=== PATIENT | male | born 1950 | race Caucasian/White ===

== ENCOUNTER 2020-05-08 14:36 | Inpatient (IN) | payer MEDICARE ==
--- NOTE | 2020-05-08 15:33 | ED ---
Weakness HPI <ElmerTommy - Last Filed: 05/08/20 17:31> - General Source: patient Mode of arrival: wheelchair Limitations: no limitations <Brittany Mondragon - Last Filed: 05/08/20 18:01> - General Chief complaint: Weakness Stated complaint: not eating Time Seen by Provider: 05/08/20 15:05 - History of Present Illness Initial comments: 70-year-old male patient presents to the emergency department today for evaluation of generalized weakness and lack of appetite. He was sent in by his primary care physician Dr. Bain for admission. Patient states since the middle of February he has had decreased appetite. Patient states that he does feel nauseated when eating and is having difficulty keeping food down. States when he swallows food he will occasionally have a pain in various locations of his back. Patient denies any fever or chills with this. Denies abdominal pain. Denies constipation or diarrhea. Denies any hematochezia or melena. Patient states he has lost 12 pounds over the last 2 months without trying. Patient denies any recent rash, cough, shortness of breath, chest pain, numbness, tingling, dizziness, weakness, hematuria, dysuria, urinary urgency, urinary frequency, headache, visual changes, or any other complaints. (Brittany Mondragon) - Related Data Allergies Allergy/AdvReac Type Severity Reaction Status Date / Time No Known Allergies Allergy Verified 05/08/20 18:00 Review of Systems ROS Other: All systems not noted in ROS Statement are negative. <Tommy Payne - Last Filed: 05/08/20 17:31> ROS Other: All systems not noted in ROS Statement are negative. <Brittany Mondragon - Last Filed: 05/08/20 18:01> ROS Statement: Those systems with pertinent positive or pertinent negative responses have been documented in the HPI. Past Medical History Past Medical History: Hyperlipidemia, Hypertension History of Any Multi-Drug Resistant Organisms: None Reported Additional Past Surgical History / Comment(s): cataract surgery. Smoking Status: Never smoker Past Alcohol Use History: Daily Past Drug Use History: None Reported <Brittany Mondragon - Last Filed: 05/08/20 18:01> General Exam Limitations: no limitations General appearance: alert, in no apparent distress, other (This is a well- developed, thin appearing adult male patient in no acute distress. Vital signs upon presentation are temperature 98.7F, pulse 108, respirations 16, blood pressure 98/67, pulse ox 97% on room air.) Eye exam: Present: normal appearance, PERRL, EOMI. Absent: scleral icterus, conjunctival injection, periorbital swelling Respiratory exam: Present: normal lung sounds bilaterally. Absent: respiratory distress, wheezes, rales, rhonchi, stridor Cardiovascular Exam: Present: regular rate, normal rhythm, normal heart sounds. Absent: systolic murmur, diastolic murmur, rubs, gallop, clicks GI/Abdominal exam: Present: soft, normal bowel sounds. Absent: distended, tenderness, guarding, rebound, rigid Neurological exam: Present: alert, oriented X3, CN II-XII intact Psychiatric exam: Present: normal affect, normal mood Skin exam: Present: warm, dry, intact, pallor. Absent: rash <Brittany Mondragon - Last Filed: 05/08/20 18:01> Course Vital Signs 05/08/20 05/08/20 14:57 16:55 Temperature 98.7 F Pulse Rate 108 H 81 Respiratory 16 18 Rate Blood Pressure 98/67 102/64 O2 Sat by Pulse 97 99 Oximetry EKG Findings - EKG Comments: EKG Findings:: EKG obtained at 1544 shows normal sinus rhythm with a ventricular rate of 90, OR interval 160, QRS duration 80, QT 360, QTC 440. No evidence of ST elevation or depression. <Brittany Mondragon - Last Filed: 05/08/20 18:01> Medical Decision Making - Lab Data Result diagrams: 05/08/20 15:22 05/08/20 15:22 <Tommy Payne - Last Filed: 05/08/20 17:31> - Lab Data Result diagrams: 05/08/20 15:22 05/08/20 15:22 <Brittany Mondragon - Last Filed: 05/08/20 18:01> - Medical Decision Making Patient reevaluated and reexamined by myself, Dr. Payne. I agree with. Findings. This includes diagnostic interpretation to the plan. Patient does have mild hyponatremia. Case was discussed in detail with Dr. Bani who would like patient admitted with prophylaxis for alcohol withdrawal as well as consult with GI and a computed tomography scan of the abdomen. He states patient has lost 14 pounds in the past couple of months. (Tommy Payne) 70-year-old male patient presented to the emergency department today for evaluation of generalized weakness, decreased appetite, and weight loss. Physical examination did reveal a thin appearing male patient. Abdomen soft and nontender. Labs reviewed and did reveal decreased sodium at 129. Case was discussed with Dr. Bain, he'll be admitted to the hospital with CT abdomen and pelvis as well as consult GI. Patient is agreeable this plan. (Brittany Mondragon) - Lab Data Lab Results 05/08/20 05/08/20 05/08/20 Range/Units 15:22 15:22 15:22 WBC 7.2 (3.8-10.6) k/uL RBC 4.34 (4.30-5.90) m/uL Hgb 13.2 (13.0-17.5) gm/dL Hct 39.2 (39.0-53.0) % MCV 90.3 (80.0-100.0) fL MCH 30.4 (25.0-35.0) pg MCHC 33.6 (31.0-37.0) g/dL RDW 12.2 (11.5-15.5) % Plt Count 145 L (150-450) k/uL Neutrophils % (Manual) 67 % Band Neutrophils % 17 % Lymphocytes % (Manual) 8 % Monocytes % (Manual) 8 % Neutrophils # (Manual) 6.00 (1.3-7.7) k/uL Lymphocytes # (Manual) 0.58 L (1.0-4.8) k/uL Monocytes # (Manual) 0.58 (0-1.0) k/uL Nucleated RBCs 0 (0-0) /100 WBC Manual Slide Review Performed Poikilocytosis (manual Present PT 10.6 (9.0-12.0) sec INR 1.0 (<1.2) APTT 23.5 (22.0-30.0) sec Sodium 129 L (137-145) mmol/L Potassium 4.0 (3.5-5.1) mmol/L Chloride 95 L (98-107) mmol/L Carbon Dioxide 23 (22-30) mmol/L Anion Gap 11 mmol/L BUN 18 (9-20) mg/dL Creatinine 1.09 (0.66-1.25) mg/dL Est GFR (CKD-EPI)AfAm 80 (>60 ml/min/1.73 sqM) Est GFR (CKD-EPI)NonAf 69 (>60 ml/min/1.73 sqM) Glucose 103 H (74-99) mg/dL Calcium 9.3 (8.4-10.2) mg/dL Total Bilirubin 1.8 H (0.2-1.3) mg/dL AST 25 (17-59) U/L ALT 11 (4-49) U/L Alkaline Phosphatase 85 (38-126) U/L Troponin I (0.000-0.034) ng/mL Total Protein 7.0 (6.3-8.2) g/dL Albumin 3.9 (3.5-5.0) g/dL Amylase 59 (30-110) U/L Lipase 203 (23-300) U/L 05/08/20 Range/Units 15:22 WBC (3.8-10.6) k/uL RBC (4.30-5.90) m/uL Hgb (13.0-17.5) gm/dL Hct (39.0-53.0) % MCV (80.0-100.0) fL MCH (25.0-35.0) pg MCHC (31.0-37.0) g/dL RDW (11.5-15.5) % Plt Count (150-450) k/uL Neutrophils % (Manual) % Band Neutrophils % % Lymphocytes % (Manual) % Monocytes % (Manual) % Neutrophils # (Manual) (1.3-7.7) k/uL Lymphocytes # (Manual) (1.0-4.8) k/uL Monocytes # (Manual) (0-1.0) k/uL Nucleated RBCs (0-0) /100 WBC Manual Slide Review Poikilocytosis (manual PT (9.0-12.0) sec INR (<1.2) APTT (22.0-30.0) sec Sodium (137-145) mmol/L Potassium (3.5-5.1) mmol/L Chloride (98-107) mmol/L Carbon Dioxide (22-30) mmol/L Anion Gap mmol/L BUN (9-20) mg/dL Creatinine (0.66-1.25) mg/dL Est GFR (CKD-EPI)AfAm (>60 ml/min/1.73 sqM) Est GFR (CKD-EPI)NonAf (>60 ml/min/1.73 sqM) Glucose (74-99) mg/dL Calcium (8.4-10.2) mg/dL Total Bilirubin (0.2-1.3) mg/dL AST (17-59) U/L ALT (4-49) U/L Alkaline Phosphatase (38-126) U/L Troponin I <0.012 (0.000-0.034) ng/mL Total Protein (6.3-8.2) g/dL Albumin (3.5-5.0) g/dL Amylase (30-110) U/L Lipase (23-300) U/L Disposition <Tommy Payne - Last Filed: 05/08/20 17:31> Decision to Admit Reason: Admit from EC Decision Date: 05/08/20 Decision Time: 17:42 <Brittany Mondragon - Last Filed: 05/08/20 18:01> Clinical Impression: Anorexia, Failure to thrive Disposition: ADMITTED IP TO THIS [facility] Condition: Serious
[2020-05-08 16:00] LABS: HCT 39.2 % (39.0-53.0); HGB 13.2 gm/dL (13.0-17.5); MCH 30.4 pg (25.0-35.0); MCHC 33.6 g/dL (31.0-37.0); MCV 90.3 fL (80.0-100.0); Mean Platelet Volume 9.2; Platelet Count 145 k/uL (150-450); RBC 4.34 m/uL (4.30-5.90); RDW 12.2 % (11.5-15.5); WBC 7.2 k/uL (3.8-10.6)
[2020-05-08 16:06] LABS: Partial Thromboplastin Time 23.5 sec (22.0-30.0); Prothrombin Time 10.6 sec (9.0-12.0)
--- NOTE | 2020-05-08 16:07 | XR ---
EXAMINATION TYPE: XR chest 2V DATE OF EXAM: 05/08/2020 COMPARISON: NONE HISTORY: Shortness of breath TECHNIQUE: Frontal and lateral views of the chest are obtained. FINDINGS: Scattered senescent parenchymal changes noted. Hyperinflation compatible with COPD. No evidence for infiltrate. No evidence for atelectasis. Heart size is stable. Mediastinal structures are stable and grossly unremarkable. No evidence for hilar prominence. Degenerative changes dorsal spine. IMPRESSION: 1. No evidence for acute pulmonary disease.
[2020-05-08] MEDS ORDERED: SODIUM CHLORIDE 0.9% 500 ML 500 ML IV ONE (16:16)
[2020-05-08] MEDS ORDERED: SODIUM CHLORIDE 0.9% 1,000 ML IV ONE (16:16)
[2020-05-08 16:18] LABS: Albumin 3.9 g/dL (3.5-5.0); Calcium 9.3 mg/dL (8.4-10.2); Total Bilirubin 1.8 mg/dL (0.2-1.3)
[2020-05-08 16:43] LABS: Band Neutrophils % 17 %; Lymphocytes # (M) 0.58 k/uL (1.0-4.8); Monocytes # (M) 0.58 k/uL (0-1.0); Neutrophils % (M) 67 %; Nucleated Red Blood Cells 0 /100 WBC (0-0); Poikilocytosis (M) Present; Total Cells Counted 100
[2020-05-08] MEDS ORDERED: NALOXONE 0.4 MG/ML 1 ML VIAL IV PRN (17:39)
[2020-05-08] MEDS ORDERED: ONDANSETRON 4 MG/2 ML VIAL IVP PRN (17:39)
[2020-05-08] MEDS ORDERED: THIAMINE 100 MG/ML 2 ML VIAL IM STA (17:41)
[2020-05-08] MEDS ORDERED: LORazepam 2 MG/ML INJ IV PRN ×3 (17:41)
[2020-05-08] MEDS: SODIUM CHLORIDE 0.9% 1,000 ML IV SCH (18:08)
--- NOTE | 2020-05-08 19:11 | CT ---
EXAMINATION TYPE: CT abdomen pelvis w con DATE OF EXAM: 05/08/2020 COMPARISON: HISTORY: Low back pain with weight loss and vomiting CT DLP: 581.3 mGycm Automated exposure control for dose reduction was used. CONTRAST: Performed with IV Contrast, patient injected with 100 mL of Isovue 300. Lung bases are clear. There is no pleural effusion. Heart size is normal. There is no pericardial eff usion. Gallbladder is distended. The bile ducts are not dilated. Spleen is intact. There is a 3.5 cm low-den sity area at the inferior aspect of the pancreatic head adjacent to the descending duodenum. It is no t clear if this is related to a large duodenal diverticulum or to a mass in the pancreatic head. The body and tail of the pancreas appear normal. Stomach has normal size. There is no adrenal mass. Kidneys show satisfactory contrast opacification. There is no hydronephrosi s. There is 2 cm cortical cyst posterior left kidney. The delayed images show normal renal excretion. Ureters are not dilated. There is no retroperitoneal adenopathy. Bladder distends smoothly. There is no inguinal hernia. There is retained fecal material in the rectum that measures 6.5 cm. There is no free fluid in the pelvis. There is no mesenteric edema. There is no ascites or free air. Appendix appears normal. There is no bowel obstruction. Lumbar vertebra have normal alignment. 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 IMPRESSION: Mass at the junction of the pancreatic head with the descending duodenum. Pancreatic tumor is possibl e. This could be also unusual duodenal diverticulum. Limited CT scan with oral contrast or MR scan wo uld BE helpful for further evaluation if clinically indicated.
[2020-05-08 22:29] LABS: Appearance,Urine Clear (Clear); Bilirubin,Urine Negative (Negative); Blood,Urine Negative (Negative); Color,Urine Yellow; Glucose,Urine (UA) Negative (Negative); Ketones,Urine 1+ (Negative); Leukocyte Esterase,Urine Negative (Negative); Nitrite,Urine Negative (Negative); PH, Urine 6.5 (5.0-8.0); Protein,Urine Negative (Negative); Specific Gravity,Urine 1.044 (1.001-1.035); Urobilinogen,Urine <2.0 mg/dL (<2.0)
[2020-05-09 08:35] VITALS: RESP 16
[2020-05-09] MEDS: THIAMINE 100 MG TAB PO SCH ×2 (08:40→16:28)
[2020-05-09] MEDS: SODIUM CHLORIDE 0.9% 1,000 ML IV SCH ×2 (08:40→20:44)
[2020-05-09] MEDS: PANTOPRAZOLE 40 MG/10 ML VIAL IVP SCH (08:45)
[2020-05-09] MEDS ORDERED: COLCHICINE 0.6 MG EACH PO PRN (09:00)
[2020-05-09 09:19] LABS: Basophils % (A) 1 %; Eosinophils % (A) 0 %; HCT 32.9 % (39.0-53.0); HGB 10.7 gm/dL (13.0-17.5); Lymphocytes # (A) 0.5 k/uL (1.0-4.8); Lymphocytes % (A) 11 %; MCH 29.8 pg (25.0-35.0); MCHC 32.5 g/dL (31.0-37.0); MCV 91.6 fL (80.0-100.0); Monocytes # (A) 0.8 k/uL (0-1.0); Monocytes % (A) 16 %; Neutrophils # (A) 3.1 k/uL (1.3-7.7); Neutrophils % (A) 66 %; Platelet Count 118 k/uL (150-450); RBC 3.59 m/uL (4.30-5.90); RDW 12.3 % (11.5-15.5); WBC 4.6 k/uL (3.8-10.6)
--- NOTE | 2020-05-09 09:20 | P.GSCN ---
History of Present Illness Consult date: 05/09/20 History of present illness: 70-year-old male presented to the emergency department secondary to symptoms of failure to thrive. He states that for the past few months his appetite is decreased and increased level of abdominal pain after meals. He also complains of nausea and vomiting episodes after meals. He states that he usually does not vomit food bolus, however it is a clear liquid. He states that after certain meals he begins to have a sharp stabbing pain in the middle of the stomach goes to his back. He denies any significant changes in bowel function. He states he has occasionally had these types of symptoms, however it has become more frequent. He states secondary to these issues, he has lost over 10 pounds in the last month or so. Workup was performed in the emergency department with standard blood work and CT of the abdomen and pelvis. CT was concerning for a possibility of a pancreatic mass and a distended gallbladder. Blood work did re veal a mildly elevated total bilirubin at 1.8. Otherwise, no significant liver function abnormalities. Currently, he denies any abdominal pain. He is on a clear liquid diet and states he is tolerating that without any significant pain. He denies any fevers, chills, chest pain or shortness of breath. Review of Systems All systems: negative Past Medical History Past Medical History: Hyperlipidemia, Hypertension History of Any Multi-Drug Resistant Organisms: None Reported Past Surgical History: No Surgical Hx Reported Additional Past Surgical History / Comment(s): cataract surgery. Past Anesthesia/Blood Transfusion Reactions: No Reported Reaction Past Psychological History: No Psychological Hx Reported Smoking Status: Never smoker Past Alcohol Use History: Daily Past Drug Use History: None Reported - Past Family History Mother Family Medical History: Cancer Medications and Allergies Home Medications Medication Instructions Recorded Confirmed Type Atorvastatin [Lipitor] 40 mg PO HS 05/08/20 05/08/20 History Colchicine 0.6 mg PO DAILY PRN 05/08/20 05/08/20 History Ergocalciferol (Vitamin D2) 50,000 unit PO QMONTHLY 05/08/20 05/08/20 History [Drisdol] Folic Acid 1 mg PO HS 05/08/20 05/08/20 History lisinopriL 20 mg PO HS 05/08/20 05/08/20 History Allergies Allergy/AdvReac Type Severity Reaction Status Date / Time No Known Allergies Allergy Verified 05/08/20 18:00 Surgical - Exam Osteopathic Statement: *. No significant issues noted on an osteopathic structural exam other than those noted in the History and Physical/Consult. Vital Signs Temp Pulse Resp BP Pulse Ox 98.7 F 108 H 16 98/67 97 05/08/20 14:57 05/08/20 14:57 05/08/20 14:57 05/08/20 14:57 05/08/20 14:57 - General no distress - Eyes PERRL, normal ocular movement - ENT normal mucosa, no hearing loss - Neck no masses, trachea midline - Respiratory normal respiratory effort - Abdomen Soft, nontender, nondistended, no rebound, no guarding - Neurologic normal coordination, normal sensation - Psychiatric oriented to time, oriented to person, oriented to place Results - Labs 05/08/20 15:22 05/08/20 15:22 Abnormal Lab Results - Last 24 Hours (Table) 05/08/20 05/08/20 05/08/20 Range/Units 15:22 15:22 15:22 Plt Count 145 L (150-450) k/uL Lymphocytes # (Manual) 0.58 L (1.0-4.8) k/uL Sodium 129 L (137-145) mmol/L Chloride 95 L (98-107) mmol/L Glucose 103 H (74-99) mg/dL Osmolality (280-301) mosm/kg Total Bilirubin 1.8 H (0.2-1.3) mg/dL Ur Specific [place] 1.044 H (1.001-1.035) Urine Ketones 1+ H (Negative) 05/08/20 Range/Units 15:22 Plt Count (150-450) k/uL Lymphocytes # (Manual) (1.0-4.8) k/uL Sodium (137-145) mmol/L Chloride (98-107) mmol/L Glucose (74-99) mg/dL Osmolality 274 L (280-301) mosm/kg Total Bilirubin (0.2-1.3) mg/dL Ur Specific [place] (1.001-1.035) Urine Ketones (Negative) Diabetes panel 05/08/20 Range/Units 15:22 Sodium 129 L (137-145) mmol/L Potassium 4.0 (3.5-5.1) mmol/L Chloride 95 L (98-107) mmol/L Carbon Dioxide 23 (22-30) mmol/L BUN 18 (9-20) mg/dL Creatinine 1.09 (0.66-1.25) mg/dL Glucose 103 H (74-99) mg/dL Calcium 9.3 (8.4-10.2) mg/dL AST 25 (17-59) U/L ALT 11 (4-49) U/L Alkaline Phosphatase 85 (38-126) U/L Total Protein 7.0 (6.3-8.2) g/dL Albumin 3.9 (3.5-5.0) g/dL Calcium panel 05/08/20 Range/Units 15:22 Calcium 9.3 (8.4-10.2) mg/dL Albumin 3.9 (3.5-5.0) g/dL Pituitary panel 05/08/20 Range/Units 15:22 Sodium 129 L (137-145) mmol/L Potassium 4.0 (3.5-5.1) mmol/L Chloride 95 L (98-107) mmol/L Carbon Dioxide 23 (22-30) mmol/L BUN 18 (9-20) mg/dL Creatinine 1.09 (0.66-1.25) mg/dL Glucose 103 H (74-99) mg/dL Calcium 9.3 (8.4-10.2) mg/dL Adrenal panel 05/08/20 Range/Units 15:22 Sodium 129 L (137-145) mmol/L Potassium 4.0 (3.5-5.1) mmol/L Chloride 95 L (98-107) mmol/L Carbon Dioxide 23 (22-30) mmol/L BUN 18 (9-20) mg/dL Creatinine 1.09 (0.66-1.25) mg/dL Glucose 103 H (74-99) mg/dL Calcium 9.3 (8.4-10.2) mg/dL Total Bilirubin 1.8 H (0.2-1.3) mg/dL AST 25 (17-59) U/L ALT 11 (4-49) U/L Alkaline Phosphatase 85 (38-126) U/L Total Protein 7.0 (6.3-8.2) g/dL Albumin 3.9 (3.5-5.0) g/dL Assessment and Plan (1) Failure to thrive Narrative/Plan: Based on the patient's computed tomography scan findings, there is concern of a pancreatic head mass. His symptoms could reflect a pancreatic etiology and pancreatic mass should be ruled out. I would recommend further imaging workup to rule out pancreatic mass. The patient is also noted to have a distended gallbladder. he does not currently have baseline pain, and the distended gallbladder could be related to lack of oral intake. Prior to further biliary workup, we will evaluate for pancreatic etiology due to concerning CT findings. GI consult is currently pending. Current Visit: Yes Status: Acute Code(s): [id number] - SNOMED Code(s): 39625759
[2020-05-09 09:32] LABS: African American GFR (CKD) >90 (>60 ml/min/1.73 sqM); Anion Gap 10 mmol/L; Blood Urea Nitrogen 15 mg/dL (9-20); Calcium 8.3 mg/dL (8.4-10.2); Carbon Dioxide 24 mmol/L (22-30); Chloride 99 mmol/L (98-107); Glucose 92 mg/dL (74-99); Non-African American GFR(CKD) 89 (>60 ml/min/1.73 sqM); Potassium 3.3 mmol/L (3.5-5.1); Sodium 133 mmol/L (137-145)
[2020-05-09 10:06] LABS: Poikilocytosis (M) Present
[2020-05-09] MEDS ORDERED: Potassium Replacement Protocol 1 EACH MISC MISCELLANE PRN ×3 (10:55→15:28)
[2020-05-09] MEDS ORDERED: Magnesium Replacement Protocol 1 EACH MISC MISCELLANE PRN ×2 (10:57→15:28)
[2020-05-09 11:05] LABS: ALT 8 U/L (4-49); AST 19 U/L (17-59); Alkaline Phosphatase 65 U/L (38-126); Bilirubin, Delta 0.4 mg/dL (0.0-0.2); Bilirubin,Unconjugated 0.9 mg/dL (0.0-1.1); Total Bilirubin 1.3 mg/dL (0.2-1.3); Total Protein 5.7 g/dL (6.3-8.2)
[2020-05-09] MEDS: POTASSIUM CHLORIDE ER 20 MEQ TAB.ER PO SCH ×4 (12:25→17:54)
[2020-05-09 12:32] VITALS: BMI 17.1
--- NOTE | 2020-05-09 14:10 | P.HPIM ---
History of Present Illness H&P Date: 05/09/20 Chief Complaint: Nausea, vomiting, back pain, weight loss This is 70-year-old gentleman with past medical history of hyperlipidemia, hypertension, daily alcohol consumption of 5-6 beers, presented to his PCPs office yesterday with nausea, vomiting, decreased appetite, reported unintentional weight loss of 12-15 pounds since January 2020, back pain and was sent directly into the ER. Denies diarrhea. Reports abdominal pain sometimes after eating, midepigastric radiating to back. He denies change in bowel habits Denies hemoptysis, hematochezia, melena. Denies any chest pain, palpitations or shortness of breath. Denies any fever or chills. Denies cough. Denies any focal deficits. Chest x-ray reported no evidence for acute pulmonary disease. Abdomen/pelvis CT reported distended gallbladder, 3.5 cm low-density area in the inferior aspect of the pancreatic head, retained fecal material in the rectum measuring 6.5cm. EKG) normal sinus rhythm. Troponin negative 1. Sodium 129 on admission up to 133 with IV fluid hydration. Osmolality low 274, T bili 1.8, LFTs , amylase, lipase within normal limits, Potassium 3.3, magnesium ordered. Hemoglobin 13.2, currently 10.7. Platelets 145 on admission down to 118 Review of Systems ROS Statement: Those systems with pertinent positive or pertinent negative responses have been documented in the HPI. ROS Other: All systems not noted in ROS Statement are negative. Past Medical History Past Medical History: Hyperlipidemia, Hypertension History of Any Multi-Drug Resistant Organisms: None Reported Additional Past Surgical History / Comment(s): cataract surgery. Past Anesthesia/Blood Transfusion Reactions: No Reported Reaction Past Psychological History: No Psychological Hx Reported Smoking Status: Never smoker Past Alcohol Use History: Daily Past Drug Use History: None Reported - Past Family History Mother Family Medical History: Cancer Medications and Allergies Home Medications Medication Instructions Recorded Confirmed Type Atorvastatin [Lipitor] 40 mg PO HS 05/08/20 05/08/20 History Colchicine 0.6 mg PO DAILY PRN 05/08/20 05/08/20 History Ergocalciferol (Vitamin D2) 50,000 unit PO QMONTHLY 05/08/20 05/08/20 History [Drisdol] Folic Acid 1 mg PO HS 05/08/20 05/08/20 History lisinopriL 20 mg PO HS 05/08/20 05/08/20 History Allergies Allergy/AdvReac Type Severity Reaction Status Date / Time No Known Allergies Allergy Verified 05/08/20 18:00 Physical Exam Vitals: Vital Signs Temp Pulse Pulse Pulse Resp BP BP 05/09/20 08:32 98 F 75 16 121/63 05/08/20 23:57 98 F 71 17 128/70 05/08/20 23:00 75 20 131/70 05/08/20 22:30 76 18 120/78 05/08/20 22:00 74 18 131/74 05/08/20 21:30 73 20 123/78 05/08/20 21:00 80 20 125/78 05/08/20 20:30 72 20 128/72 05/08/20 20:00 75 20 118/72 05/08/20 19:30 79 20 130/71 05/08/20 19:00 82 20 131/76 05/08/20 18:30 87 12 121/78 05/08/20 18:00 81 17 113/76 05/08/20 17:30 80 15 117/73 05/08/20 16:55 81 18 102/64 05/08/20 16:30 85 18 95/74 05/08/20 14:57 98.7 F 108 H 16 98/67 Pulse Ox 05/09/20 08:32 98 05/08/20 23:57 97 05/08/20 23:00 100 05/08/20 22:30 100 05/08/20 22:00 99 05/08/20 21:30 99 05/08/20 21:00 99 05/08/20 20:30 100 05/08/20 20:00 100 05/08/20 19:30 100 05/08/20 19:00 100 05/08/20 18:30 98 05/08/20 18:00 100 05/08/20 17:30 100 05/08/20 16:55 99 05/08/20 16:30 100 05/08/20 14:57 97 Intake and Output 05/08/20 05/09/20 05/09/20 22:59 06:59 14:59 Other: # Voids 1 Weight 57.153 kg PHYSICAL EXAM: VITAL SIGNS: As above GENERAL: Sitting up in bed, no acute distress HEENT: Conjunctivae normal. eyes normal. NECK: No JVD. No thyroid enlargement. No LNs CARDIOVASCULAR: S1, S2 regular. No murmur RESPIRATION: Breath sounds diminished in the bases. No rhonchi or crackles. No bronchial breathing. ABDOMEN: Soft, nontender . No guarding. no masses palpable. No ascites, No hepatosplenomegaly.Bowel sounds heard. LEGS: No edema. no swelling PSYCHIATRY: Alert and oriented X3, mood and affect normal. NERVOUS SYSTEM: Cranial N 2-12 grossly normal. Moves all 4 limbs. Diffuse weakness, No focal deficits. Strength and sensation grossly intact.. Skin: Warm and dry, no rash Lymphatic system. No LN neck axilla. Results CBC & Chem 7: 05/09/20 08:40 05/09/20 08:40 Labs: Abnormal Lab Results - Last 24 Hours (Table) 05/08/20 05/08/20 05/08/20 Range/Units 15:22 15:22 15:22 Plt Count 145 L (150-450) k/uL Lymphocytes # (Manual) 0.58 L (1.0-4.8) k/uL Sodium 129 L (137-145) mmol/L Chloride 95 L (98-107) mmol/L Glucose 103 H (74-99) mg/dL Osmolality (280-301) mosm/kg Total Bilirubin 1.8 H (0.2-1.3) mg/dL Ur Specific [place] 1.044 H (1.001-1.035) Urine Ketones 1+ H (Negative) 05/08/20 Range/Units 15:22 Plt Count (150-450) k/uL Lymphocytes # (Manual) (1.0-4.8) k/uL Sodium (137-145) mmol/L Chloride (98-107) mmol/L Glucose (74-99) mg/dL Osmolality 274 L (280-301) mosm/kg Total Bilirubin (0.2-1.3) mg/dL Ur Specific [place] (1.001-1.035) Urine Ketones (Negative) Thrombosis Risk Factor Assmnt - Choose All That Apply Any of the Below Risk Factors Present?: No Other Risk Factors: Yes Each Risk Factor Represents 2 Points: Age 61-74 years Other congenital or acquired thrombophilia - If yes, enter type in comment: No Thrombosis Risk Factor Assessment Total Risk Factor Score: 2 Thrombosis Risk Factor Assessment Level: Low Risk Assessment and Plan Assessment: Failure to thrive with Acute nausea vomiting accompanied by back pain, un intentional weight loss of 12-15 pounds in the last 2-3 months Dehydration Hyponatremia secondary to the above Daily alcohol abuse of 5-6 beers per day Thrombocytopenia Lymphocytopenia Enlarge gallbladder Pancreatic mass reported per CT, abdominal MRI pending Hyperlipidemia Hypertension Anorexia, Moderate protein malnutrition, BMI 17.1 Plan: Continue on current medication regime ,monitoring and symptomatic treatment. Maintain IV fluid hydration. CIWA PROTOCOL. Electrolyte replacement protocols ordered. GI consult in place with recommendations pending. General surgery, Dr. Cisneros consulted. Abdominal MRI ordered. Prognosis guarded and multiple complex medical issues. The impression and plan of care has been dictated as directed. : I performed a history and examination of this patient, discussed the same with the dictator. I agree with the dictator's note ,documented as a scribe. Any additional findings or plans will be noted.
--- NOTE | 2020-05-09 14:45 | MR ---
MR abdomen with and without contrast HISTORY: Weight loss and vomiting, abnormal CT Multiplanar multisequence and postcontrast images obtained through the abdomen following 6 cc Gadavis t IV. Correlation CT abdomen pelvis 05/08/2020 3 mass seen at the level of the pancreatic groove on prior CT shows mixed isointense, focal areas of T2 intense signal and measures approximately 3.2 cm in AP dimension by 5.1 cm in cephalad to caudal d imension by 4.4 cm in transverse dimension. There is some peripheral enhancement. Cystic spaces inter mila are present, there is an intrinsic architecture which enhances and washes out, T1 precontrast s hows isointense signal. There is local mass effect on the duodenum as well as the pancreatic head. No evident biliary ductal dilatation. Periportal node is suspected in the head of the pancreas with enl argement, axial image 23 T2 data set. No evident involvement of the portal vein. There is no retroperitoneal adenopathy or ascites. Aorta shows normal caliber. Liver and gallbladder, spleen, adrenal glands and kidneys are stable, cortical cysts associated with the left kidney. Lung bases are clear. No pleural or pericardial effusion. IMPRESSION: Favor duodenal adenocarcinoma, pancreatic groove carcinoma, recommend endoscopy with biop sy for better evaluation.
[2020-05-09 15:20] LABS: Magnesium 1.5 mg/dL (1.6-2.3); Potassium 3.5 mmol/L (3.5-5.1)
[2020-05-09] MEDS: MAGNESIUM SULFATE-D5W PMX 1 GM in DEXTROSE/WATER 1 100ML.BAG IVPB SCH ×2 (16:28→17:54)
--- NOTE | 2020-05-09 17:36 | ECHOF ---
Referral Reason:LV fx MEASUREMENTS -------- HEIGHT: 177.8 cm WEIGHT: 57.2 kg BP: 121/63 IVSd: 1.6 cm (0.6 - 1.1) LVIDd: 2.4 cm (3.9 - 5.3) LVPWd: 1.3 cm (0.6 - 1.1) EDV(Teich): 19 ml IVSs: 1.8 cm LVIDs: 1.6 cm LVPWs: 1.8 cm %IVS Thck: 14 % ESV(Teich): 7 ml EF(Teich): 62 % %FS: 31 % SV(Teich): 12 ml RVIDd: 2.9 cm (< 3.3) IVC: 17.21 mm LALs A4C: 3.5 cm LAAs A4C: 10.4 cm LAESV A-L A4C: 26 ml LAESV MOD A4C: 20 ml LALs A2C: 4.0 cm LAAs A2C: 9.5 cm LAESV A-L A2C: 20 ml LAESV MOD A2C: 19 ml LAESV(A-L): 24 ml LAESV Index (A-L): 14.08 ml/m Ao Diam: 3.0 cm (2.0 - 3.7) AV Cusp: 1.8 cm (1.5 - 2.6) EPSS: 0.2 cm MV E Juliano: 0.89 m/s MV DecT: 238 ms MV Dec Forrest: 3.7 m/s MV A Juliano: 0.68 m/s MV E/A Ratio: 1.30 MV PHT: 69 ms LVOT Vmax: 1.11 m/s LVOT maxP.97 mmHg AV Vmax: 1.40 m/s AV maxP.81 mmHg TR Vmax: 2.60 m/s TR maxP.03 mmHg RAP: 5.00 mmHg RVSP: 32.03 mmHg MV EF SLOPE: 43.23 mm/s (70 - 150) MV EXCURSION: 13.62 mm (> 18.000) FINDINGS -------- This was a technically adequate study. The left ventricular size is normal. There is moderate concentric left ventricular hypertrophy. O verall left ventricular systolic function is normal with, an EF between 55 - 60 %. The diastolic fi lling pattern is normal for the age of the patient {E/E'}. The right ventricle is normal in size. Normal LA size by volume 22+/-6 ml/m2. The right atrial size is normal. Interatrial and interventricular septum intact. There is mild aortic valve sclerosis. There is no evidence of aortic regurgitation. There is no e vidence of aortic stenosis. No mitral regurgitation. Mild tricuspid regurgitation present. There is no evidence of pulmonary hypertension. The right v entricular systolic pressure, as measured by Doppler, is 32.03mmHg. There is no pulmonic regurgitation present. The aortic root size is normal. Normal inferior vena cava with normal inspiratory collapse consistent with estimated right atrial pre ssure of 5 mmHg. There is no pericardial effusion. CONCLUSIONS -------- 1. The left ventricular size is normal. 2. There is moderate concentric left ventricular hypertrophy. 3. Overall left ventricular systolic function is normal with, an EF between 55 - 60 %. 4. The diastolic filling pattern is normal for the age of the patient {E/E'} 5. There is mild aortic valve sclerosis. 6. Mild tricuspid regurgitation present. PLANT OPERATIONS MANAGER: Socorro Bishop RDCS
[2020-05-09 19:49] LABS: Magnesium 2.4 mg/dL (1.6-2.3)
[2020-05-09] MEDS ORDERED: lisinopriL 20 MG TAB PO SCH (21:00)
[2020-05-09] MEDS ORDERED: FOLIC ACID 1 MG TAB PO SCH (21:00)
[2020-05-09] MEDS ORDERED: ATORVASTATIN 40 MG TAB PO SCH (21:00)
--- NOTE | 2020-05-09 22:41 | CONS ---
CONSULTATION DATE OF DICTATION: 05/09/2020 REASON FOR CONSULTATION: Epigastric pain, progressive weakness and weight loss. HISTORY OF PRESENT ILLNESS: The patient is a 70-year-old pleasant white male admitted to the hospital because of intermittent episodes of epigastric pain radiating to the back associated with progressive weakness and fatigue as well as weight loss of 15 pounds in the last 2 months' duration. He has been having intermittent episodes of epigastric pain, especially with eating, worse with solids, and occasionally with liquids. He denies any heartburn, reports no nausea, vomiting. He lost about 15 pounds. He came into the emergency room and had a CT of the abdomen and pelvis done yesterday that showed a 3.5 cm low-density area in the inferior aspect of the pancreatic head adjacent to the descending duodenum; unclear if this represents a duodenal diverticulum versus a mass. The patient was seen by Dr. Cisneros and an MRI of the pancreas was ordered, which was just done; results are still pending at the time of this dictation. PAST MEDICAL HISTORY: His past medical history is significant for hypertension and hyperlipidemia. MEDICATIONS: Medications at home include Drisdol, colchicine, lisinopril, folic acid, Lipitor. ALLERGIES: NONE. SOCIAL HISTORY: No smoking. No alcohol use. FAMILY HISTORY: Unremarkable. PAST SURGICAL HISTORY: Cataract surgery. REVIEW OF SYSTEMS: CARDIOPULMONARY: No chest pain or shortness of breath. GENITOURINARY: No dysuria or hematuria. MUSCULOSKELETAL: Unremarkable. SKIN: Unremarkable. ENDOCRINE: Unremarkable. PSYCHIATRIC: Unremarkable. NEUROLOGY: Unremarkable. ENT/VISION: Unremarkable. CONSTITUTIONAL: No recent weight loss. No fever, chills, night sweats. PHYSICAL EXAMINATION: He appears comfortable. VITAL SIGNS: Stable. Blood pressure 125/66, pulse rate 75, temperature 98.1. HEENT examination unremarkable. Conjunctivae pink. Sclerae anicteric. Oral cavity no lesions. NECK: No JVD or lymph node enlargement. CHEST: Clear to auscultation. HEART: Regular rate and rhythm. ABDOMEN: Soft. There was very minimal tenderness in the epigastric area. Rest of the abdomen was benign. EXTREMITIES: No pedal edema. SKIN: No rashes. NEUROLOGIC: Alert and oriented x3. No focal deficits. LABS: WBC 7.2, hemoglobin 13.2, platelets 145. Basic metabolic panel is within normal limits. ALT and AST are 25 and 11, respectively. T-bilirubin 1.8 and alkaline phosphatase is 88. Amylase and lipase are normal. IMPRESSION: This is a patient who presented to the hospital with intermittent epigastric pain radiating to the back associated with weight loss of 20 pounds in the last 2-[address] scan showed a 3.5 cm suspicious lesion in the pancreatic head adjacent to the descending duodenum, but could not be adequately characterized. At this time possibility of pancreatic neoplasm cannot be excluded, based on his symptoms. RECOMMENDATIONS: 1. Agree with MRI of the pancreas. 2. In the meantime, continue with Protonix 40 mg daily. 3. Advance diet as tolerated. 4. Based on the MRI of the pancreas, we will decide further investigations, if he needs to be transferred to a tertiary institute versus an upper endoscopy at this hospital. The plan was discussed with the patient. He is agreeable to it. Thank you for this consultation. MMODL / IJN: [id number] /
[2020-05-10] MEDS: PANTOPRAZOLE 40 MG/10 ML VIAL IVP SCH (07:45)
[2020-05-10] MEDS: THIAMINE 100 MG TAB PO SCH ×2 (07:45→17:58)
--- NOTE | 2020-05-10 08:33 | P.PN ---
Subjective Progress Note Date: 05/10/20 Patient seen and examined. No acute events. Objective - Vital Signs Vital signs: Vital Signs Temp 97.8 F 05/10/20 07:44 Pulse 74 05/10/20 07:51 Resp 16 05/10/20 07:51 BP 132/78 05/10/20 07:44 Pulse Ox 99 05/10/20 07:44 Intake & Output 05/09/20 05/10/20 05/10/20 18:59 06:59 18:59 Weight 54.2 kg Other: Voiding Method Toilet Toilet # Voids 1 2 # Bowel Movements 1 - Constitutional General appearance: Present: cooperative - Respiratory Details: No difficulty with respiration - Gastrointestinal Gastrointestinal Comment(s): Soft, nontender, nondistended, no rebound, no guarding - Musculoskeletal Musculoskeletal: Present: generalized weakness - Psychiatric Psychiatric: Present: A&O x's 3 - Labs CBC & Chem 7: 05/09/20 08:40 05/09/20 19:17 Labs: Abnormal Lab Results - Last 24 Hours (Table) 05/09/20 05/09/20 05/09/20 Range/Units 08:40 08:40 14:54 RBC 3.59 L (4.30-5.90) m/uL Hgb 10.7 L (13.0-17.5) gm/dL Hct 32.9 L (39.0-53.0) % Plt Count 118 L (150-450) k/uL Lymphocytes # 0.5 L (1.0-4.8) k/uL Sodium 133 L (137-145) mmol/L Potassium 3.3 L (3.5-5.1) mmol/L Calcium 8.3 L (8.4-10.2) mg/dL Magnesium 1.5 L (1.6-2.3) mg/dL Delta Bilirubin 0.4 H (0.0-0.2) mg/dL Total Protein 5.7 L (6.3-8.2) g/dL Albumin 3.0 L (3.5-5.0) g/dL 05/09/20 Range/Units 19:17 RBC (4.30-5.90) m/uL Hgb (13.0-17.5) gm/dL Hct (39.0-53.0) % Plt Count (150-450) k/uL Lymphocytes # (1.0-4.8) k/uL Sodium (137-145) mmol/L Potassium (3.5-5.1) mmol/L Calcium (8.4-10.2) mg/dL Magnesium 2.4 H (1.6-2.3) mg/dL Delta Bilirubin (0.0-0.2) mg/dL Total Protein (6.3-8.2) g/dL Albumin (3.5-5.0) g/dL Assessment and Plan (1) Failure to thrive Narrative/Plan: MRI of the abdomen was completed. 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 GI has evaluated the patient. We will await their recommendations on possible endoscopy secondary to MRI results. If endoscopic confirmation of a duodenal adenocarcinoma at the curvature of the pancreas, would recommend surgical oncology evaluation and workup at tertiary care center based on location of the cancer. Current Visit: Yes Status: Acute Code(s): [id number] - SNOMED Code(s): 61912442
--- NOTE | 2020-05-10 09:06 | P.DS ---
Providers Date of admission: 05/09/20 08:55 Expected date of discharge: 05/10/20 Attending physician: Melvin Bain Consults: 05/08/20 17:40 Consult Physician Routine Consulting Provider: Shukri Bucio Consult Reason/Comments: Anorexia; Failure to thrive Do you want consulting provider notified?: Yes 05/09/20 08:14 Consult Physician Routine Consulting Provider: Tamika Cisneros Consult Reason/Comments: Distended GB Do you want consulting provider notified?: Yes Primary care physician: Melvin Bain Hospital Course: Final Diagnoses: Failure to thrive with Acute nausea vomiting accompanied by back pain, unintentional weight loss of 12-15 pounds in the last 2-3 months.MRI of the abdomen completed 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 Dehydration Hyponatremia secondary to the above Daily alcohol abuse of 5-6 beers per day Thrombocytopenia Lymphocytopenia Enlarge gallbladder Pancreatic mass reported per CT, abdominal MRI pending Hyperlipidemia Hypertension Anorexia, Moderate protein malnutrition, BMI 17.1 Hospital course:This is 70-year-old gentleman with past medical history of hyperlipidemia, hypertension, daily alcohol consumption of 5-6 beers, presented to his PCPs office yesterday with nausea, vomiting, decreased appetite, reported unintentional weight loss of 12-15 pounds since January 2020, back pain and was sent directly into the ER. Denies diarrhea. Reports abdominal pain sometimes after eating, midepigastric radiating to back. He denies change in bowel habits Denies hemoptysis, hematochezia, melena. Denies any chest pain, palpitations or shortness of breath. Denies any fever or chills. Denies cough. Denies any focal deficits. Chest x-ray reported no evidence for acute pulmonary disease. Abdomen/pelvis CT reported distended gallbladder, 3.5 cm low-density area in the inferior aspect of the pancreatic head, retained fecal material in the rectum measuring 6.5cm. EKG) normal sinus rhythm. Troponin negative 1. Sodium 129 on admission up to 133 with IV fluid hydration. Osmolality low 274, T bili 1.8, LFTs , amylase, lipase within normal limits, Potassium 3.3, magnesium ordered. Hemoglobin 13.2, currently 10.7. 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 Findings discussed with surgery and GI. Both recommending transfer to tertiary care center secondary to location of mass, to facilitate advanced endoscopy with biopsy, surgical oncologist which are not available at [facility]. Discussed with patient, transfer to [facility] this morning and patient is agreeable. Transfer initiated, patient will be transferred in a stable condition with guarded prognosis to [facility] pending accepting physician. The impression and plan of care has been dictated as directed. : I performed a history and examination of this patient, discussed the same with the dictator. I agree with the dictator's note ,documented as a scribe. Any additional findings or plans will be noted. Patient Condition at Discharge: Stable Plan - Discharge Summary New Discharge Prescriptions: No Action Ergocalciferol (Vitamin D2) [Drisdol] 50,000 unit PO QMONTHLY lisinopriL 20 mg PO HS Folic Acid 1 mg PO HS Atorvastatin [Lipitor] 40 mg PO HS Colchicine 0.6 mg PO DAILY PRN PRN Reason: GOUT Discharge Medication List Atorvastatin [Lipitor] 40 mg PO HS 05/08/20 [History] Colchicine 0.6 mg PO DAILY PRN 05/08/20 [History] Ergocalciferol (Vitamin D2) [Drisdol] 50,000 unit PO QMONTHLY 05/08/20 [History] Folic Acid 1 mg PO HS 05/08/20 [History] lisinopriL 20 mg PO HS 05/08/20 [History] Follow up Appointment(s)/Referral(s): Melvin Bain DO [Primary Care Provider] - 1 Week (After DC from [facility])
[2020-05-10 09:10] LABS: Basophils % (A) 1 %; Eosinophils % (A) 1 %; HCT 32.6 % (39.0-53.0); HGB 10.6 gm/dL (13.0-17.5); Lymphocytes # (A) 0.5 k/uL (1.0-4.8); Lymphocytes % (A) 13 %; MCH 29.8 pg (25.0-35.0); MCHC 32.6 g/dL (31.0-37.0); MCV 91.4 fL (80.0-100.0); Monocytes # (A) 0.9 k/uL (0-1.0); Monocytes % (A) 21 %; Neutrophils # (A) 2.6 k/uL (1.3-7.7); Neutrophils % (A) 61 %; Platelet Count 118 k/uL (150-450); RBC 3.56 m/uL (4.30-5.90); RDW 12.1 % (11.5-15.5); WBC 4.2 k/uL (3.8-10.6)
[2020-05-10 09:21] LABS: ALT 7 U/L (4-49); AST 20 U/L (17-59); African American GFR (CKD) >90 (>60 ml/min/1.73 sqM); Albumin 2.8 g/dL (3.5-5.0); Alkaline Phosphatase 66 U/L (38-126); Anion Gap 4 mmol/L; Blood Urea Nitrogen 9 mg/dL (9-20); Calcium 8.2 mg/dL (8.4-10.2); Carbon Dioxide 26 mmol/L (22-30); Chloride 103 mmol/L (98-107); Glucose 88 mg/dL (74-99); Magnesium 1.7 mg/dL (1.6-2.3); Non-African American GFR(CKD) >90 (>60 ml/min/1.73 sqM); Potassium 4.3 mmol/L (3.5-5.1); Sodium 133 mmol/L (137-145); Total Bilirubin 1.1 mg/dL (0.2-1.3); Total Protein 5.4 g/dL (6.3-8.2)
--- NOTE | 2020-05-10 11:18 | P.PN ---
Subjective Progress Note Date: 05/10/20 Principal diagnosis: Epigastric pain, progressive weakness and weight loss This is a 70-year-old male patient was admitted to the hospital because of intermittent episodes of gastric pain radiating to the back associated with progressive weakness and fatigue as well as weight loss up to 15 pounds the last 2 months duration. Had a CT of the abdomen and pelvis done yesterday that showed a 3-1/2 cm low density area in the inferior aspect of the pancreatic head adjacent to the descending duodenum; unclear if this represents a duodenal diverticulum versus a mass. The patient was seen by surgical services Dr. Cisneros and an MRI of the pancreas was ordered. 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 The patient states yesterday evening when he had a regular diet that he had the severe pain that radiated to his back, he was unable to finish eating. He denies any nausea or vomiting or abdominal pain at this time. Objective - Vital Signs Vital signs: Vital Signs Temp 97.8 F 05/10/20 07:44 Pulse 74 05/10/20 07:51 Resp 16 05/10/20 07:51 BP 132/78 05/10/20 07:44 Pulse Ox 99 05/10/20 07:44 Intake & Output 05/09/20 05/10/20 05/10/20 18:59 06:59 18:59 Weight 54.2 kg Other: Voiding Method Toilet Toilet # Voids 1 2 # Bowel Movements 1 - Exam General appearance: The patient is alert, oriented, in no acute distress. Thin. HET: Head is normocephalic and atraumatic. Conjunctiva pink. Sclera anicteric. No oral lesions noted. Neck: Supple without lymphadenopathy. Trachea midline. Heart: S1 S2. Regular rate and rhythm. Lungs: No crackles or wheezes are heard. Abdomen: Soft, very thin, nontender, nondistended with bowel sounds. No peritoneal signs. No palpable organomegaly or masses. Extremities: Normal skin color and turgor. No pedal edema. Neurological: No focal deficits. Alert and oriented 3. - Labs CBC & Chem 7: 05/10/20 08:52 05/10/20 08:52 Labs: Abnormal Lab Results - Last 24 Hours (Table) 05/09/20 05/09/20 05/10/20 Range/Units 14:54 19:17 08:52 RBC 3.56 L (4.30-5.90) m/uL Hgb 10.6 L (13.0-17.5) gm/dL Hct 32.6 L (39.0-53.0) % Plt Count 118 L (150-450) k/uL Lymphocytes # 0.5 L (1.0-4.8) k/uL Sodium (137-145) mmol/L Calcium (8.4-10.2) mg/dL Magnesium 1.5 L 2.4 H (1.6-2.3) mg/dL Total Protein (6.3-8.2) g/dL Albumin (3.5-5.0) g/dL 05/10/20 Range/Units 08:52 RBC (4.30-5.90) m/uL Hgb (13.0-17.5) gm/dL Hct (39.0-53.0) % Plt Count (150-450) k/uL Lymphocytes # (1.0-4.8) k/uL Sodium 133 L (137-145) mmol/L Calcium 8.2 L (8.4-10.2) mg/dL Magnesium (1.6-2.3) mg/dL Total Protein 5.4 L (6.3-8.2) g/dL Albumin 2.8 L (3.5-5.0) g/dL Assessment and Plan Assessment: This is a patient who presented to the hospital with intermittent epigastric pain radiating to the back associated with weight loss up to 20 pounds the last 2-3 months duration. Computed tomography scan showed a 3.5 cm suspicious lesion in the pancreatic head adjacent to the descending duodenum. Subsequently an MRI of the abdomen was ordered which favored a duodenal and now carcinoma, pancreatic groove carcinoma, recommend endoscopy with biopsy for better evaluation. At this time recommendation for transfer to a tertiary center for further evaluation is recommended. Plan: 1. MRI of the abdomen reviewed 2. Continue with Protonix 40 mg daily 3. Advance diet as tolerated 4. MRI reviewed based on findings recommendation for transfer to tertiary center for further evaluation with advanced endoscopy. 5. Patient is agreeable for transfer 6. Thank you for this consultation we will continue to follow the patient closely The impression and plan of care has been dictated as directed. Dr. Saeed Ferrari I performed a history and examination of this patient, discussed the same with the dictator. I agree with the dictator's note ,documented as a scribe. Any additional findings or plans will be noted.
[2020-05-10 16:32] VITALS: BP 135/80; PULSE 77; TEMP 98
[2020-05-10] MEDS: SODIUM CHLORIDE 0.9% 1,000 ML IV SCH (17:57)
== END 2020-05-10 18:23 | disposition short-term general hospital (02) | DRG 375 ==
LOC: EC 14:36 → 1SOBS 17:54 → OBSVTOIN 05-09 08:55
PROVIDERS: ADMIT Family Medicine; ATTEND Family Medicine
DX: C17.0 Malignant neoplasm of duodenum (principal); E44.0 Moderate protein-calorie malnutrition; Z68.1 Body mass index [BMI] 19.9 or less, adult; E87.1 Hypo-osmolality and hyponatremia; D69.6 Thrombocytopenia, unspecified; R62.7 Adult failure to thrive; E86.0 Dehydration; I10 Essential (primary) hypertension; E78.5 Hyperlipidemia, unspecified; F10.10 Alcohol abuse, uncomplicated; D72.810 Lymphocytopenia; K82.8 Other specified diseases of gallbladder; Z71.3 Dietary counseling and surveillance; Z98.49 Cataract extraction status, unspecified eye; Z79.899 Other long term (current) drug therapy; Z80.9 Family history of malignant neoplasm, unspecified
CPT/HCPCS: 36415; 71046; 74177; 74183; 80053; 80076; 81003; 82150; 83690; 83735; 83930; 83935; 84132; 84300; 84484; 84540; 85025; 85610; 85730; 86301; 93005; 93306; 96360; 96361; 96372; 99285

== ENCOUNTER → 2020-05-19 | Outpatient (CLI) | payer MEDICARE ==
--- NOTE | 2020-05-22 06:42 | PE ---
EXAMINATION TYPE: PET CT fusion skull to thigh DATE OF EXAM: 05/19/2020 COMPARISON: MRI abdomen May 09, 2020. CT abdomen and pelvis May 08, 2020 HISTORY: Malignant neoplasm of the esophagus, initial staging study. TECHNIQUE: Following the intravenous administration of 7.66 mCi of F-18 FDG, whole body images are p erformed from the skull base to the midthigh. Images are reviewed on the computer in the coronal, ax ial, and sagittal planes. Reconstructed rotating images are created on independent workstation and r eviewed on the computer. A noncontrast CT is performed in conjunction with the PET scan. SCAN: Initial Scan FINDINGS: SKULL BASE AND NECK: Left supraclavicular region adjacent to left thyroid lobe shows hypermetabolic 3.3 x 3.3 cm mass axial image 75, max SUV is 8.65. This has inferior and superior mediastinal extensi on between the left common and subclavian arteries. Craniocaudal length approaching 5.0 cm. CHEST, MEDIASTINUM, AND HILAR REGION: There is marked thickening of the esophagus beginning at level of alfreda extending through subcarinal level over roughly 5 to 6 cm segment consistent with biopsy-pr oven neoplasm. Max SUV is. Immediately anterior to this there is abnormal hypermetabolic subcarinal 3 .5 x 2.5 cm lymph node, max SUV is 13.83 on axial image 109. There is dilated proximal to mid esophag us with debris mid esophageal level just above this. ABDOMEN AND PELVIS: Redemonstration of abnormal heterogeneous mass in the region of the head of pancr eas thought localized to the pancreatic duodenal groove on MRI images. This is difficult to distinctl y separate from adjacent duodenal sweep on noncontrast CT, it measures roughly 3.6 x 3.3 cm sac measu res 169, max SUV is 8.67. There is additional subtle intraperitoneal metastatic lesion just medial to the cecum measuring 12 x 9 mm axial image 212, in retrospect this is better seen on CT axial image 59, max SUV is 7.75. OSSEOUS STRUCTURES: No areas of suspicious hypermetabolic uptake. OTHER CT: Mild/moderate calcified plaque bilateral carotid bulb level. Moderate emphysematous change of visualized lungs. Moderate to severe coronary artery calcification w hich is noted marker for underlying coronary artery disease. Small to tiny pericardial effusion. Patient has little intra-abdominal fat. Bladder is poorly distended with mild wall thickening. Prosta te gland is upper limits of normal in size. IMPRESSION: Demonstration of known primary esophageal carcinoma with left sided supraclavicular metas tatic adenopathy and suspected pancreatic duodenal groove adenopathy along with right lower quadrant peritoneal metastatic deposit as detailed above.
== END | disposition home or self-care (01) ==
LOC: RADPETMAIN 08:12
PROVIDERS: ATTEND Surgery
DX: C15.9 Malignant neoplasm of esophagus, unspecified (principal); C15.5 Malignant neoplasm of lower third of esophagus; C77.0 Secondary and unspecified malignant neoplasm of lymph nodes of head, face and neck
CPT/HCPCS: 78815; A9552

== ENCOUNTER 2020-05-23 12:48 | Emergency (ER) | payer MEDICARE ==
[2020-05-23 12:55] VITALS: TEMP 97.8
[2020-05-23 13:59] LABS: ALT 19 U/L (4-49); AST 25 U/L (17-59); African American GFR (CKD) >90 (>60 ml/min/1.73 sqM); Alkaline Phosphatase 78 U/L (38-126); Amylase 52 U/L (30-110); Anion Gap 9 mmol/L; Blood Urea Nitrogen 16 mg/dL (9-20); Calcium 9.8 mg/dL (8.4-10.2); Carbon Dioxide 28 mmol/L (22-30); Chloride 93 mmol/L (98-107); Glucose 154 mg/dL (74-99); Non-African American GFR(CKD) 86 (>60 ml/min/1.73 sqM); Potassium 4.7 mmol/L (3.5-5.1); Sodium 130 mmol/L (137-145); Total Bilirubin 1.3 mg/dL (0.2-1.3)
[2020-05-23 14:07] LABS: Basophils % (A) 0 %; Eosinophils # (A) 0.1 k/uL (0-0.7); Eosinophils % (A) 1 %; HCT 33.8 % (39.0-53.0); HGB 11.1 gm/dL (13.0-17.5); Lymphocytes # (A) 0.7 k/uL (1.0-4.8); Lymphocytes % (A) 7 %; MCH 29.4 pg (25.0-35.0); MCHC 32.8 g/dL (31.0-37.0); MCV 89.6 fL (80.0-100.0); Mean Platelet Volume 8.8; Monocytes # (A) 1.8 k/uL (0-1.0); Monocytes % (A) 19 %; Neutrophils # (A) 6.9 k/uL (1.3-7.7); Neutrophils % (A) 71 %; RBC 3.77 m/uL (4.30-5.90); WBC 9.8 k/uL (3.8-10.6)
[2020-05-23 14:20] LABS: Platelet Count 189 k/uL (150-450)
[2020-05-23 14:41] LABS: Appearance,Urine Clear (Clear); Bilirubin,Urine Negative (Negative); Blood,Urine Negative (Negative); Color,Urine Yellow; Glucose,Urine (UA) Negative (Negative); Ketones,Urine Negative (Negative); Leukocyte Esterase,Urine Negative (Negative); Nitrite,Urine Negative (Negative); Protein,Urine Negative (Negative); Specific Gravity,Urine 1.014 (1.001-1.035)
--- NOTE | 2020-05-23 14:45 | XR ---
EXAMINATION TYPE: XR KUB DATE OF EXAM: 05/23/2020 COMPARISON: NONE HISTORY: Pain TECHNIQUE: One view abdominal series FINDINGS: The osseous structures are intact. The bowel gas pattern is nonspecific. Vascular calcifications are seen. Arthropathy of the hips. SI joints symmetric. Visualized lung bases clear. There is a chronic right-sided rib deformities correlate for history of previous trauma involving the lower rib cage.. IMPRESSION: 1. Nonspecific abdomen.
[2020-05-23] MEDS ORDERED: NA PHOS,M-B/NA PHOS,DI-BA 133 ML ENEMA RECTAL STA (14:47)
[2020-05-23] MEDS ORDERED: SODIUM CHLORIDE 0.9% 1,000 ML IV ONE (15:53)
--- NOTE | 2020-05-23 15:55 | ED ---
Abdominal Pain HPI - General Chief Complaint: Abdominal Pain Stated Complaint: GI Problems Time Seen by Provider: 05/23/20 12:50 Source: patient Mode of arrival: wheelchair Limitations: no limitations - History of Present Illness Initial Comments: 70-year-old male past history of esophageal cancer presents to the emergency department with reported constipation. States he hasn't had a bowel movement in 4 days. Family at bedside has attempted to give him ducolax and MiraLAX however the patient has not had a bowel movement. The sensation that he feels as if he has to poop however he can't get it out. Now reports that he has had difficulties with his urination. He has not urinated since yesterday morning. Patient denies any back pain. No saddle anesthesia. No weakness in his lower extremities. Denies any fevers or chills. No history with constipation or urinary retention the past. Patient was recently diagnosed with esophageal cancer. States that for the past week he has been on a liquid diet due to the size of the tumor. Has had a good appetite. Denies any abdominal pain. 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 Denies any nausea or vomiting. Denies fevers or chills. Patient has PET scan 4 days ago. Results reviewed demonstrated one peritoneal lesions measuring 12 x 9 mm. No other alleviating, precipitating or modifying factors - Related Data Home Medications Medication Instructions Recorded Confirmed Atorvastatin [Lipitor] 40 mg PO HS 05/08/20 05/23/20 Folic Acid 1 mg PO HS 05/08/20 05/23/20 lisinopriL 20 mg PO HS 05/08/20 05/23/20 Allergies Allergy/AdvReac Type Severity Reaction Status Date / Time No Known Allergies Allergy Verified 05/23/20 15:20 Review of Systems ROS Statement: Those systems with pertinent positive or pertinent negative responses have been documented in the HPI. ROS Other: All systems not noted in ROS Statement are negative. Past Medical History Past Medical History: Cancer, Hyperlipidemia, Hypertension Additional Past Medical History / Comment(s): esophogeal cancer. History of Any Multi-Drug Resistant Organisms: None Reported Past Surgical History: No Surgical Hx Reported Additional Past Surgical History / Comment(s): cataract surgery. Past Anesthesia/Blood Transfusion Reactions: No Reported Reaction Past Psychological History: No Psychological Hx Reported Smoking Status: Never smoker Past Alcohol Use History: None Reported Past Drug Use History: None Reported - Past Family History Mother Family Medical History: Cancer General Exam Limitations: no limitations General appearance: alert, in no apparent distress Head exam: Present: atraumatic, normocephalic, normal inspection Eye exam: Present: normal appearance, PERRL, EOMI. Absent: scleral icterus, conjunctival injection, periorbital swelling ENT exam: Present: normal exam, mucous membranes moist Neck exam: Present: normal inspection. Absent: tenderness, meningismus, lymphadenopathy Respiratory exam: Present: normal lung sounds bilaterally. Absent: respiratory distress, wheezes, rales, rhonchi, stridor Cardiovascular Exam: Present: regular rate, normal rhythm, normal heart sounds. Absent: systolic murmur, diastolic murmur, rubs, gallop, clicks GI/Abdominal exam: Present: soft, normal bowel sounds. Absent: distended, tenderness, guarding, rebound, rigid Rectal exam: Present: normal inspection, other (exam performed after enema demonstrates only minimal stool in rectum. ). Absent: fecal impaction, hemorrhoids, prostate enlargement Extremities exam: Present: normal inspection, full ROM, normal capillary refill. Absent: tenderness, pedal edema, joint swelling, calf tenderness Back exam: Present: normal inspection Neurological exam: Present: alert, oriented X3, CN II-XII intact Psychiatric exam: Present: normal affect, normal mood Skin exam: Present: warm, dry, intact, normal color. Absent: rash Course Vital Signs 05/23/20 05/23/20 12:50 16:00 Temperature 97.8 F Pulse Rate 92 107 H Respiratory 16 18 Rate Blood Pressure 90/65 109/70 O2 Sat by Pulse 100 99 Oximetry Medical Decision Making - Medical Decision Making Upon arrival the patient is placed into room 11. A thorough history and physical exam was performed. ATP labs have been ordered. The patient was bladder scanned and he had 300 mL of urine in his bladder. He was having retention and a Freedman was placed with return of 300 mL. Laboratory studies demonstrated a sodium of 1:30. Urinalysis is negative. KUB did demonstrate significant stool burden. No obstructive pattern. Patient was given an enema with good release of stool. Patient continues to feel as if he has more stool in his rectum and therefore a digital rectal exam was performed with rectal impaction. No large stool ball appreciated. I did recommend continued treatment with stool softeners daily. The patient was be provided with a bottle of mag citrate. He is to drink half the bottle. He does not have a bowel movement in 4 hours to drink the other half. The patient requests the Freedman be taken out prior to discharge. I do inform him that he could have return of his retention. The patient understood this and wishes to have the freedman removed. Freedman is removed. He will follow up with his primary care doctor within 2-4 days. Return to the emergency room for any new or worsening symptoms. Patient was in agreement with the plan and discharged home in stable condition - Lab Data Result diagrams: 05/23/20 13:40 05/23/20 13:40 Lab Results 05/23/20 05/23/20 05/23/20 Range/Units 13:40 13:40 14:16 WBC 9.8 (3.8-10.6) k/uL RBC 3.77 L (4.30-5.90) m/uL Hgb 11.1 L (13.0-17.5) gm/dL Hct 33.8 L (39.0-53.0) % MCV 89.6 (80.0-100.0) fL MCH 29.4 (25.0-35.0) pg MCHC 32.8 (31.0-37.0) g/dL RDW 13.0 (11.5-15.5) % Plt Count 189 D (150-450) k/uL Neutrophils % 71 % Lymphocytes % 7 % Monocytes % 19 % Eosinophils % 1 % Basophils % 0 % Neutrophils # 6.9 (1.3-7.7) k/uL Lymphocytes # 0.7 L (1.0-4.8) k/uL Monocytes # 1.8 H (0-1.0) k/uL Eosinophils # 0.1 (0-0.7) k/uL Basophils # 0.0 (0-0.2) k/uL Sodium 130 L (137-145) mmol/L Potassium 4.7 (3.5-5.1) mmol/L Chloride 93 L (98-107) mmol/L Carbon Dioxide 28 (22-30) mmol/L Anion Gap 9 mmol/L BUN 16 (9-20) mg/dL Creatinine 0.91 (0.66-1.25) mg/dL Est GFR (CKD-EPI)AfAm >90 (>60 ml/min/1.73 sqM) Est GFR (CKD-EPI)NonAf 86 (>60 ml/min/1.73 sqM) Glucose 154 H (74-99) mg/dL Calcium 9.8 (8.4-10.2) mg/dL Total Bilirubin 1.3 (0.2-1.3) mg/dL AST 25 (17-59) U/L ALT 19 (4-49) U/L Alkaline Phosphatase 78 (38-126) U/L Total Protein 7.0 (6.3-8.2) g/dL Albumin 4.0 (3.5-5.0) g/dL Amylase 52 (30-110) U/L Lipase 139 (23-300) U/L Urine Color Yellow Urine Appearance Clear (Clear) Urine pH 8.0 (5.0-8.0) Ur Specific [place] 1.014 (1.001-1.035) Urine Protein Negative (Negative) Urine Glucose (UA) Negative (Negative) Urine Ketones Negative (Negative) Urine Blood Negative (Negative) Urine Nitrite Negative (Negative) Urine Bilirubin Negative (Negative) Urine Urobilinogen 2.0 (<2.0) mg/dL Ur Leukocyte Esterase Negative (Negative) Disposition Clinical Impression: Constipation Disposition: HOME SELF-CARE Condition: Stable Instructions (If sedation given, give patient instructions): Constipation (ED) Additional Instructions: Please drink half of the magnesium citrate. If you do not have any improvement in your symptoms, drink the other half. Take a stool softener daily. Return to the ED if you have any new or worsening symptoms. Is patient prescribed a controlled substance at d/c from ED?: No Referrals: Melvin Bain DO [Primary Care Provider] - 1-2 days Time of Disposition: 17:03
[2020-05-23 16:33] VITALS: BP 109/70; PULSE 107; RESP 18
[2020-05-23] MEDS ORDERED: MAGNESIUM CITRATE 296 ML BOTTLE PO ONE (16:58)
== END 2020-05-23 17:37 | disposition home or self-care (01) ==
LOC: EC 12:48
DX: K59.00 Constipation, unspecified (principal); R33.9 Retention of urine, unspecified; K56.49 Other impaction of intestine; E78.5 Hyperlipidemia, unspecified; I10 Essential (primary) hypertension; Z79.899 Other long term (current) drug therapy; Z85.01 Personal history of malignant neoplasm of esophagus
CPT/HCPCS: 36415; 51702; 74018; 80053; 81003; 82150; 83690; 85025; 99284

== ENCOUNTER 2020-06-02 11:11 | Day surgery (SDC) | payer MEDICARE ==
[2020-06-02 12:14] VITALS: RESP 16; TEMP 97.7
[2020-06-02] MEDS ORDERED: LACTATED RINGERS 1,000 ML IV ONE (12:21)
[2020-06-02] MEDS ORDERED: PROPOFOL 10 MG/ML 20 ML VIAL IV ONE (12:29)
[2020-06-02] MEDS ORDERED: LIDOCAINE 1% INJ 10MG/ML (20 ML MDV) ONE (12:29)
--- NOTE | 2020-06-02 12:34 | P.GSHP ---
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 Beginning palliative chemotherapy. Patient has had worsening dysphagia particularly with solids. I was contacted by has oncologist yesterday. They're requesting PEG tube. Most of patient's workup has been at [facility]. Unclear how tight the patient's stricture at the malignancy is. Patient also complaining of significant constipation. Past Medical History Past Medical History: Cancer, Hyperlipidemia, Hypertension Additional Past Medical History / Comment(s): esophogeal cancer. History of Any Multi-Drug Resistant Organisms: None Reported Past Surgical History: No Surgical Hx Reported Additional Past Surgical History / Comment(s): cataract surgery. Past Anesthesia/Blood Transfusion Reactions: No Reported Reaction Past Psychological History: No Psychological Hx Reported Smoking Status: Never smoker Past Alcohol Use History: None Reported Past Drug Use History: None Reported - Past Family History Mother Family Medical History: Cancer Medications and Allergies Home Medications Medication Instructions Recorded Confirmed Type Folic Acid 1 mg PO HS 05/08/20 06/02/20 History lisinopriL 20 mg PO HS 05/08/20 06/02/20 History Allergies Allergy/AdvReac Type Severity Reaction Status Date / Time No Known Allergies Allergy Verified 06/02/20 12:19 Surgical - Exam Vital Signs Temp Pulse Resp BP Pulse Ox 97.7 F 74 16 126/70 97 06/02/20 12:13 06/02/20 12:13 06/02/20 12:13 06/02/20 12:13 06/02/20 12:13 Physical exam: General: Malnourished appearing elderly male HEENT: Normocephalic, sclerae nonicteric Abdomen: Nontender, nondistended Extremities: No edema Neuro: Alert and oriented Assessment and Plan (1) Esophageal cancer, stage IV Narrative/Plan: Will proceed with upper endoscopy and percutaneous endoscopic gastrostomy placement. Discussed with patient and the present that inability to pass the strictured area is a possibility. We'll need to decide following that if that is the case what our next best approach will be. Risk of bleeding, infection, perforation, catheter misplacement, bowel injury, hernia, fistula reviewed. They understand and wish to proceed. Current Visit: Yes Status: Acute Code(s): C15.9 - MALIGNANT NEOPLASM OF ESOPHAGUS, UNSPECIFIED SNOMED Code(s): 585856568
--- NOTE | 2020-06-02 13:00 | P.PCN ---
Date of Procedure: 06/02/20 Procedure(s) Performed: Preoperative Dx: Dysphagia, esophageal cancer, constipation Postoperative Dx: Obstructing mid to distal esophageal mass, fecal impaction Procedure: Esophagoscopy, disimpaction Anesthesia: Sedation Endoscopist: Dr. Munoz Specimens: And Endoscopic Procedure: The patient was on the endoscopy table in the left decubitus position. The Olympus gastroscope was inserted into the oropharynx and passed under direct visualization to the mid to distal esophagus. There was a friable mass there that we were unable to traverse with our scope. I could not visualize the lumen with certainty. The proximal esophagus appeared normal. The procedure was aborted at that point. The patient had complained of severe constipation preoperatively. Digital rectal examination revealed a large volume of stool in the rectal vault. Disimpaction took place manually. I would estimate 10-12 ounces of solid stool was evacuated. Will discuss with oncology regarding possible esophageal stent placement at [facility]. The patient was then taken to the recovery room in stable condition per anesthesia guidelines. Recommendations: Discussed findings with patient's . We'll contact [facility] thoracic team.
[2020-06-02 14:18] VITALS: BP 117/70; PULSE 67
== END 2020-06-02 14:32 | disposition home or self-care (01) ==
LOC: ORWHC2ENDO 11:11
PROVIDERS: ATTEND Surgery
DX: C15.4 Malignant neoplasm of middle third of esophagus (principal); C79.9 Secondary malignant neoplasm of unspecified site; K59.00 Constipation, unspecified; E78.5 Hyperlipidemia, unspecified; I10 Essential (primary) hypertension; C25.9 Malignant neoplasm of pancreas, unspecified; K86.81 Exocrine pancreatic insufficiency; Z79.899 Other long term (current) drug therapy; Z98.49 Cataract extraction status, unspecified eye; Z80.9 Family history of malignant neoplasm, unspecified
CPT/HCPCS: 43200; J2001; J2704

== ENCOUNTER 2020-06-04 11:02 | Emergency (ER) | payer MEDICARE ==
[2020-06-04] MEDS ORDERED: SODIUM CHLORIDE 0.9% 1,000 ML IV STA (11:20)
[2020-06-04] MEDS ORDERED: KETOROLAC 15 MG/ML 1 ML VIAL IVP STA (11:20)
[2020-06-04 11:38] LABS: Basophils # (A) 0.2 k/uL (0-0.2); Basophils % (A) 3 %; Eosinophils % (A) 1 %; HGB 9.3 gm/dL (13.0-17.5); Lymphocytes # (A) 0.4 k/uL (1.0-4.8); Lymphocytes % (A) 5 %; MCH 31.5 pg (25.0-35.0); MCHC 34.7 g/dL (31.0-37.0); MCV 90.9 fL (80.0-100.0); Mean Platelet Volume 8.8; Monocytes % (A) 16 %; Neutrophils # (A) 4.9 k/uL (1.3-7.7); Neutrophils % (A) 73 %; Platelet Count 129 k/uL (150-450); RBC 2.96 m/uL (4.30-5.90); RDW 13.2 % (11.5-15.5); WBC 6.7 k/uL (3.8-10.6)
--- NOTE | 2020-06-04 11:42 | ED ---
General Adult HPI - General Chief complaint: Abdominal Pain Stated complaint: constipation Time Seen by Provider: 06/04/20 11:10 Source: patient, RN notes reviewed Mode of arrival: wheelchair Limitations: no limitations - History of Present Illness Initial comments: 70-year-old male with a past medical history of esophageal cancer, hyperlipidemia, hypertension presents to the emergency room for a chief complaint of constipation. Patient denies any abdominal pain but states he feels that he has a pressure in his rectum. States he feels like he needs to have a bowel movement. Patient reports he is a had a hard time hydrating given mild difficulty swallowing secondary to esophageal cancer. Patient is scheduled to undergo chemoradiation however has not started this treatment. Patient reports that he did have an enema performed a bowel one to 2 weeks ago which did allow for release of stool and tried magnesium citrate which worked for a day. Patient has no other complaints at this time including shortness of breath, chest pain, abdominal pain, nausea or vomiting, headache, or visual changes. - Related Data Home Medications Medication Instructions Recorded Confirmed Folic Acid 1 mg PO HS 05/08/20 06/02/20 lisinopriL 20 mg PO HS 05/08/20 06/02/20 Allergies Allergy/AdvReac Type Severity Reaction Status Date / Time No Known Allergies Allergy Verified 06/04/20 11:07 Review of Systems ROS Statement: Those systems with pertinent positive or pertinent negative responses have been documented in the HPI. ROS Other: All systems not noted in ROS Statement are negative. Past Medical History Past Medical History: Cancer, Hyperlipidemia, Hypertension Additional Past Medical History / Comment(s): esophogeal cancer. History of Any Multi-Drug Resistant Organisms: None Reported Past Surgical History: No Surgical Hx Reported Additional Past Surgical History / Comment(s): cataract surgery. Past Anesthesia/Blood Transfusion Reactions: No Reported Reaction Past Psychological History: No Psychological Hx Reported Smoking Status: Never smoker Past Alcohol Use History: None Reported Past Drug Use History: None Reported - Past Family History Mother Family Medical History: Cancer General Exam Limitations: no limitations General appearance: alert, in no apparent distress Head exam: Present: atraumatic, normocephalic, normal inspection Eye exam: Present: normal appearance, PERRL, EOMI. Absent: scleral icterus, conjunctival injection, periorbital swelling ENT exam: Present: normal exam, mucous membranes moist Neck exam: Present: normal inspection, full ROM. Absent: tenderness, meningismus, lymphadenopathy Respiratory exam: Present: normal lung sounds bilaterally. Absent: respiratory distress, wheezes, rales, rhonchi, stridor Cardiovascular Exam: Present: regular rate, normal rhythm, normal heart sounds. Absent: systolic murmur, diastolic murmur, rubs, gallop, clicks GI/Abdominal exam: Present: soft, normal bowel sounds. Absent: distended, tenderness, guarding, rebound, rigid Rectal exam: Present: fecal impaction (Slight fecal impaction noted however patient unable to tolerate digital disimpaction.) Course Vital Signs 06/04/20 06/04/20 11:05 13:44 Temperature 97.8 F Pulse Rate 97 86 Respiratory 16 16 Rate Blood Pressure 91/59 122/89 O2 Sat by Pulse 98 99 Oximetry Medical Decision Making - Medical Decision Making Vitals are stable. CBC did show a slight drop in hemoglobin to 9.3. Patient has not noticed any melena or hematochezia. I did recommend he monitor for this and have Dr. Ayon repeat his hemoglobin. CMP unremarkable. Slight transaminitis however no right upper quadrant tenderness. X-ray KUB shows a nonobstructive bowel gas pattern with moderate colonic stool burden. I did initially try to disimpact patient he was able to tolerate this. Patient had 2 rounds of milk of molasses enema. Patient did have a small bowel movement the first time followed by a very large bowel movement the second time. I did perform a repeat PRANEETH, no impaction at this time. Patient is much better. Patient will be discharged home to follow up outpatient with his oncologist and possibly GI as needed for consultation. He will continue to take MiraLAX at home. He will follow up with Dr. Ayon for anemia and will watch for any signs of bleeding. He will return here for any worsening symptoms. - Lab Data Result diagrams: 06/04/20 11:23 06/04/20 11:23 Lab Results 06/04/20 06/04/20 Range/Units 11:23 11:23 WBC 6.7 (3.8-10.6) k/uL RBC 2.96 L (4.30-5.90) m/uL Hgb 9.3 L (13.0-17.5) gm/dL Hct 27.0 L (39.0-53.0) % MCV 90.9 (80.0-100.0) fL MCH 31.5 (25.0-35.0) pg MCHC 34.7 (31.0-37.0) g/dL RDW 13.2 (11.5-15.5) % Plt Count 129 L (150-450) k/uL Neutrophils % 73 % Lymphocytes % 5 % Monocytes % 16 % Eosinophils % 1 % Basophils % 3 % Neutrophils # 4.9 (1.3-7.7) k/uL Lymphocytes # 0.4 L (1.0-4.8) k/uL Monocytes # 1.0 (0-1.0) k/uL Eosinophils # 0.0 (0-0.7) k/uL Basophils # 0.2 (0-0.2) k/uL Sodium 132 L (137-145) mmol/L Potassium 4.0 (3.5-5.1) mmol/L Chloride 96 L (98-107) mmol/L Carbon Dioxide 29 (22-30) mmol/L Anion Gap 7 mmol/L BUN 13 (9-20) mg/dL Creatinine 0.82 (0.66-1.25) mg/dL Est GFR (CKD-EPI)AfAm >90 (>60 ml/min/1.73 sqM) Est GFR (CKD-EPI)NonAf >90 (>60 ml/min/1.73 sqM) Glucose 114 H (74-99) mg/dL Calcium 9.2 (8.4-10.2) mg/dL Total Bilirubin 1.2 (0.2-1.3) mg/dL AST 48 (17-59) U/L ALT 98 H (4-49) U/L Alkaline Phosphatase 232 H (38-126) U/L Total Protein 6.1 L (6.3-8.2) g/dL Albumin 3.4 L (3.5-5.0) g/dL Lipase 56 (23-300) U/L Disposition Clinical Impression: Constipation Disposition: HOME SELF-CARE Condition: Good Instructions (If sedation given, give patient instructions): Constipation (ED) Additional Instructions: Please give MiraLAX as directed. Please follow-up with your oncologist tomorrow. Speak with your oncologist about repeating your hemoglobin. Monitor for any signs of bleeding such as bright red or black stools. Return for any worsening symptoms. Is patient prescribed a controlled substance at d/c from ED?: No Referrals: Melvin Bain DO [Primary Care Provider] - 1-2 days Time of Disposition: 14:22
--- NOTE | 2020-06-04 11:53 | XR ---
EXAMINATION TYPE: XR KUB DATE OF EXAM: 06/04/2020 11:40 AM CLINICAL HISTORY: Abdominal pain/constipation. TECHNIQUE: Upright AP view of the abdomen is obtained. COMPARISON: 05/23/2020. FINDINGS: There is a nonobstructive bowel gas pattern. There is moderate amount of stool throughout t he colon. No free air. The lung bases are clear and the osseous structures are intact. IMPRESSION: Nonobstructive bowel gas pattern. Moderate colonic stool burden.
[2020-06-04 11:54] LABS: ALT 98 U/L (4-49); AST 48 U/L (17-59); African American GFR (CKD) >90 (>60 ml/min/1.73 sqM); Albumin 3.4 g/dL (3.5-5.0); Alkaline Phosphatase 232 U/L (38-126); Anion Gap 7 mmol/L; Blood Urea Nitrogen 13 mg/dL (9-20); Calcium 9.2 mg/dL (8.4-10.2); Carbon Dioxide 29 mmol/L (22-30); Chloride 96 mmol/L (98-107); Glucose 114 mg/dL (74-99); Non-African American GFR(CKD) >90 (>60 ml/min/1.73 sqM); Sodium 132 mmol/L (137-145); Total Bilirubin 1.2 mg/dL (0.2-1.3); Total Protein 6.1 g/dL (6.3-8.2)
[2020-06-04 14:34] VITALS: BP 123/79; PULSE 76; RESP 12; TEMP 97.9
== END 2020-06-04 14:42 | disposition home or self-care (01) ==
LOC: EC 11:02
DX: K59.00 Constipation, unspecified (principal); R71.0 Precipitous drop in hematocrit; I10 Essential (primary) hypertension; Z79.899 Other long term (current) drug therapy; Z85.01 Personal history of malignant neoplasm of esophagus
CPT/HCPCS: 36415; 74018; 80053; 83690; 85025; 96360; 99284

== ENCOUNTER 2020-06-06 15:31 | Inpatient (IN) | payer MEDICARE ==
--- NOTE | 2020-06-06 15:48 | ED ---
General Adult HPI - General Chief complaint: Recheck/Abnormal Lab/Rx Stated complaint: weakness/cancer pt Time Seen by Provider: 06/06/20 15:37 Source: patient Mode of arrival: ambulatory Limitations: no limitations - History of Present Illness Initial comments: Dictation was produced using [employer] dictation software. please excuse any grammatical, word or spelling errors. This patient was cared for during a federal and state declared state of e mergency secondary to Covid 19 Chief Complaint: 70-year-old male presents with instructions from oncology to come to the emergency department to be admitted for initiation of TPN History of Present Illness: 70-year-old male who has past medical history of esophageal cancer. He was at his oncologist office today where he saw Tresa, nurse practitioner for patient's primary oncologist Dr. Ayon. he was evaluated at the office. He is been having difficulty with n utritional intake due to his cancer. He was told to come to the emergency department for initiation of total parenterally nutrition. There has been attempts to place a feeding tube however unsuccessfully. As no other complaints at this time. He is scheduled to have chemotherapy starting here in the near future. He has no complaints at this time. The ROS documented in this emergency department record has been reviewed and confirmed by me. Those systems with pertinent positive or negative responses have been documented in the HPI. All other systems are other negative and/or noncontributory. PHYSICAL EXAM: General Impression: Alert and oriented x3, not in acute distress HEENT: Normocephalic atraumatic, extra-ocular movements intact, pupils equal and reactive to light bilaterally, mucous membranes moist. Cardiovascular: Heart regular rate and rhythm Chest: Able to complete full sentences, no retractions, no tachypnea Abdomen: abdomen soft, non-tender, non-distended, no organomegaly Musculoskeletal: Pulses present and equal in all extremities, no peripheral edema Motor: no focal deficits noted Neurological: CN II-XII grossly intact, no focal motor or sensory deficits noted Skin: Intact with no visualized rashes Psych: Normal affect and mood ED course: 70-year-old male presents with instructions from oncology for initiation of TPN. Signs upon arrival are within acceptable limits Laboratory evaluation obtained. No leukocytosis. Hemoglobin 10.0. Metabolic panel is within acceptable limits. Patient has elevated liver enzymes. Case is discussed with Dr. Melvin Bain is willing to accept patients care. General surgery and oncology will be consulted. Dietitian is also consulted for nutr ition recommendations. - Related Data Home Medications Medication Instructions Recorded Confirmed Polyethylene Glycol 3350 [Miralax] 17 gm PO BID 06/06/20 06/06/20 Allergies Allergy/AdvReac Type Severity Reaction Status Date / Time No Known Allergies Allergy Verified 06/06/20 16:17 Review of Systems ROS Statement: Those systems with pertinent positive or pertinent negative responses have been documented in the HPI. ROS Other: All systems not noted in ROS Statement are negative. Past Medical History Past Medical History: Cancer, Hyperlipidemia, Hypertension Additional Past Medical History / Comment(s): esophogeal cancer. History of Any Multi-Drug Resistant Organisms: None Reported Past Surgical History: No Surgical Hx Reported Additional Past Surgical History / Comment(s): cataract surgery. Past Anesthesia/Blood Transfusion Reactions: No Reported Reaction Past Psychological History: No Psychological Hx Reported Smoking Status: Never smoker Past Alcohol Use History: None Reported Past Drug Use History: None Reported - Past Family History Mother Family Medical History: Cancer General Exam Limitations: no limitations Course Vital Signs 06/06/20 06/06/20 06/06/20 15:33 16:10 17:00 Temperature 98 F 98.1 F Pulse Rate 86 76 66 Respiratory 18 18 18 Rate Blood Pressure 114/74 111/66 112/63 O2 Sat by Pulse 98 100 98 Oximetry Medical Decision Making - Lab Data Result diagrams: 06/06/20 15:52 06/06/20 15:52 Lab Results 06/06/20 06/06/20 Range/Units 15:52 15:52 WBC 6.0 (3.8-10.6) k/uL RBC 3.20 L (4.30-5.90) m/uL Hgb 10.0 L (13.0-17.5) gm/dL Hct 29.3 L (39.0-53.0) % MCV 91.6 (80.0-100.0) fL MCH 31.1 (25.0-35.0) pg MCHC 34.0 (31.0-37.0) g/dL RDW 13.3 (11.5-15.5) % Plt Count 136 L (150-450) k/uL Neutrophils % 68 % Lymphocytes % 7 % Monocytes % 19 % Eosinophils % 0 % Basophils % 2 % Neutrophils # 4.1 (1.3-7.7) k/uL Lymphocytes # 0.4 L (1.0-4.8) k/uL Monocytes # 1.1 H (0-1.0) k/uL Eosinophils # 0.0 (0-0.7) k/uL Basophils # 0.1 (0-0.2) k/uL Sodium 133 L (137-145) mmol/L Potassium 4.3 (3.5-5.1) mmol/L Chloride 96 L (98-107) mmol/L Carbon Dioxide 29 (22-30) mmol/L Anion Gap 8 mmol/L BUN 11 (9-20) mg/dL Creatinine 0.71 (0.66-1.25) mg/dL Est GFR (CKD-EPI)AfAm >90 (>60 ml/min/1.73 sqM) Est GFR (CKD-EPI)NonAf >90 (>60 ml/min/1.73 sqM) Glucose 114 H (74-99) mg/dL Calcium 9.4 (8.4-10.2) mg/dL Ionized Calcium [place] 4.9 (4.5-5.3) mg/dL Phosphorus 4.4 (2.5-4.5) mg/dL Magnesium 1.6 (1.6-2.3) mg/dL Total Bilirubin 1.1 (0.2-1.3) mg/dL AST 192 H (17-59) U/L ALT 218 H (4-49) U/L Alkaline Phosphatase 417 H (38-126) U/L Total Protein 6.6 (6.3-8.2) g/dL Albumin 3.8 (3.5-5.0) g/dL Disposition Clinical Impression: Malnutrition Disposition: ADMITTED IP TO THIS [facility] Condition: Fair Decision Time: 18:33
[2020-06-06] MEDS ORDERED: NALOXONE 0.4 MG/ML 1 ML VIAL IV PRN (15:59)
[2020-06-06 16:23] LABS: Basophils # (A) 0.1 k/uL (0-0.2); Basophils % (A) 2 %; Eosinophils % (A) 0 %; HCT 29.3 % (39.0-53.0); Lymphocytes # (A) 0.4 k/uL (1.0-4.8); Lymphocytes % (A) 7 %; MCH 31.1 pg (25.0-35.0); MCV 91.6 fL (80.0-100.0); Mean Platelet Volume 8.3; Monocytes # (A) 1.1 k/uL (0-1.0); Monocytes % (A) 19 %; Neutrophils # (A) 4.1 k/uL (1.3-7.7); Neutrophils % (A) 68 %; Platelet Count 136 k/uL (150-450); RDW 13.3 % (11.5-15.5)
[2020-06-06 17:00] LABS: Ionized Calcium 4.9 mg/dL (4.5-5.3)
[2020-06-06 17:03] LABS: ALT 218 U/L (4-49); AST 192 U/L (17-59); African American GFR (CKD) >90 (>60 ml/min/1.73 sqM); Albumin 3.8 g/dL (3.5-5.0); Alkaline Phosphatase 417 U/L (38-126); Anion Gap 8 mmol/L; Blood Urea Nitrogen 11 mg/dL (9-20); Calcium 9.4 mg/dL (8.4-10.2); Carbon Dioxide 29 mmol/L (22-30); Chloride 96 mmol/L (98-107); Glucose 114 mg/dL (74-99); Magnesium 1.6 mg/dL (1.6-2.3); Non-African American GFR(CKD) >90 (>60 ml/min/1.73 sqM); Phosphorus 4.4 mg/dL (2.5-4.5); Potassium 4.3 mmol/L (3.5-5.1); Sodium 133 mmol/L (137-145); Total Bilirubin 1.1 mg/dL (0.2-1.3); Total Protein 6.6 g/dL (6.3-8.2)
[2020-06-06] MEDS: SODIUM CHLORIDE 0.9% 1,000 ML IV SCH (19:05)
[2020-06-07 11:20] VITALS: BMI 16.9
[2020-06-07] MEDS ORDERED: Magnesium Replacement Protocol 1 EACH MISC MISCELLANE PRN (13:22)
[2020-06-07] MEDS: PANTOPRAZOLE 40 MG/10 ML VIAL IVP SCH (13:26)
[2020-06-07] MEDS: SODIUM CHLORIDE 0.9% 1,000 ML IV SCH (13:27)
--- NOTE | 2020-06-07 13:51 | P.HPIM ---
History of Present Illness H&P Date: 06/07/20 Chief Complaint: Malnutrition, dehydration, hypotension This is a 70-year-old gentleman past medical history of recently diagnosed esophageal cancer, patient reports stage IV , with unsuccessful feeding tube placement attempts, malnutrition, constipation, hyperlipidemia, hypertension, daily alcohol consumption of 5-6 beers, presented to his oncologist's office yesterday. Patient continued to lose weight, malnourished, dehydrated and hypotensive. Oncology [employer] reports systolic blood pressure was in the 70s and sent him to the ER. Patient reports he is scheduled to begin chemotherapy this Friday, port placement attempted but unsuccessful due to his dehydration.Recently he presented to the ER on 06/04/2020 with complaints of constipation, responded well to molasses enema. Denies nausea, vomiting. Denies abdominal pain. Denies chest pain, palpitations or shortness of breath. 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 Findings were discussed with surgery and GI. Both recommending transfer to tertiary care center secondary to location of mass, to facilitate advanced endoscopy with biopsy, surgical oncologist which are not available at [facility]. Transfer initiated to [facility]. Records be obtained from both oncology's office and [facility]. Vital signs stable, maintaining O2 sats of 100% on room air. Afebrile, normal WBC, hemoglobin 10, platelets 136, neutrophils 4.1, lymphocytes 7, sodium 133, potassium 4.3, BUN 11, creatinine 0.71, ionized calcium 4.9, magnesium 1.6, total bili 1.1. Mildly elevated LFTs; AST 192, ALT 218, alk phos 417. Amylase/lipase pending. Albumin 3.8. . Review of Systems ROS Statement: Those systems with pertinent positive or pertinent negative responses have been documented in the HPI. ROS Other: All systems not noted in ROS Statement are negative. Past Medical History Past Medical History: Cancer, Hyperlipidemia, Hypertension Additional Past Medical History / Comment(s): esophogeal cancer. History of Any Multi-Drug Resistant Organisms: None Reported Past Surgical History: No Surgical Hx Reported Additional Past Surgical History / Comment(s): cataract surgery. Past Anesthesia/Blood Transfusion Reactions: No Reported Reaction Past Psychological History: No Psychological Hx Reported Smoking Status: Never smoker Past Alcohol Use History: None Reported Past Drug Use History: None Reported - Past Family History Mother Family Medical History: Cancer Medications and Allergies Home Medications Medication Instructions Recorded Confirmed Type Polyethylene Glycol 3350 [Miralax] 17 gm PO BID 06/06/20 06/06/20 History Allergies Allergy/AdvReac Type Severity Reaction Status Date / Time No Known Allergies Allergy Verified 06/06/20 16:17 Physical Exam Vitals: Vital Signs Temp Pulse Pulse Resp BP BP Pulse Ox 06/07/20 08:24 97.0 F L 70 18 125/70 99 06/06/20 23:00 97.9 F 72 18 142/77 100 06/06/20 20:00 97.9 F 72 18 116/68 100 06/06/20 19:06 69 18 110/69 100 06/06/20 17:00 66 18 112/63 98 06/06/20 16:10 98.1 F 76 18 111/66 100 06/06/20 15:33 98 F 86 18 114/74 98 Intake and Output 06/06/20 06/07/20 06/07/20 22:59 06:59 14:59 Other: Weight 53.524 kg PHYSICAL EXAM: VITAL SIGNS: As above GENERAL: Sitting up in stretcher, no acute distress HEENT: Conjunctivae normal. eyes normal. NECK: No JVD. No thyroid enlargement. CARDIOVASCULAR: S1, S2 regular. No murmur RESPIRATION: Breath sounds diminished in the bases. No rhonchi or crackles. No bronchial breathing. ABDOMEN: Soft, nontender . No guarding. no masses palpable. No ascites, No hepatosplenomegaly.Bowel sounds heard. LEGS: No edema. no swelling PSYCHIATRY: Alert and oriented X3, mood and affect normal. NERVOUS SYSTEM: Cranial N 2-12 grossly normal. Moves all 4 limbs. Diffuse weakness, No focal deficits. Strength and sensation grossly intact.. Skin: Warm and dry, no rash Lymphatic system. No LN neck axilla. Results CBC & Chem 7: 06/06/20 15:52 06/06/20 15:52 Labs: Abnormal Lab Results - Last 24 Hours (Table) 06/06/20 06/06/20 Range/Units 15:52 15:52 RBC 3.20 L (4.30-5.90) m/uL Hgb 10.0 L (13.0-17.5) gm/dL Hct 29.3 L (39.0-53.0) % Plt Count 136 L (150-450) k/uL Lymphocytes # 0.4 L (1.0-4.8) k/uL Monocytes # 1.1 H (0-1.0) k/uL Sodium 133 L (137-145) mmol/L Chloride 96 L (98-107) mmol/L Glucose 114 H (74-99) mg/dL AST 192 H (17-59) U/L ALT 218 H (4-49) U/L Alkaline Phosphatase 417 H (38-126) U/L Assessment and Plan Assessment: Dehydration, malnutrition secondary to esophageal cancer. 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 Hyperlipidemia Hypertension Anorexia, Moderate protein malnutrition, BMI 16.9 Plan: Continue on current medication regime ,monitoring and symptomatic treatment. Hydrate with IV fluids, PPN ordered. Dietitian consulted. Patient stated inability for PEG tube placement. Patient further states he was slated for chemotherapy to be initiated on Friday with goals to shrink the tumors, p ossibly enhancing placement of PEG tube as per his discussion with oncology. Obtaining records from both [facility] and oncology's office. Discussing potential transfer to [facility] for stent placement versus hospice in a patient with stage IV. CODE STATUS needs to be addressed. Oncology consult in place with recommendations pending/ Dual-lumen PICC. Further recommendations to follow. Prognosis guarded given multiple complex medical issues. The impression and plan of care has been dictated as directed. : I performed a history and examination of this patient, discussed the same with the dictator. I agree with the dictator's note ,documented as a scribe. Any additional findings or plans will be noted.
--- NOTE | 2020-06-07 14:08 | P.CONS ---
History of Present Illness - Reason for Consult Consult date: 06/07/20 New Metastatic Esophageal Cancer - Malnutrition Requesting physician: Derrick Torrez - Chief Complaint Unable to eat or drink, underweight - History of Present Illness Mr. Dumas is a pleasant male patient who was recently diagnosed with metastatic esophageal cancer. He was seen for initial evaluation in the office by Dr. Ayon and plan was to begin concurrent treatment with chemoradiation. He also has a pancreatic head mass which is causing compression on the duodenum (recent ER visit for constipation)seen on recent PET scan, paratracheal lymph node causing compression on the distal esophagus. He was seen by Dr. Munoz to place a feeding tube and mediport, unfortunetly due to the severe tumor burden neither were able to be performed. He continue to lose weight, having a difficult time swallowing and/or drinking. He was seen in the office on 06/06/20 for a chemoteach although he appeared clinically dehydrated, his systolic BP was in the 70s, HR 110s. Due to the urgency of needing treatment with symptomatic tumor burden, and now symptomatic malntutrition and dehydration (syncopal episodes) patient was referred to emergency for further evaluation and parental feeding and hydration. Picc line for TPN will be placed while admitted. Will ask Radiation oncology to assess further. COncern of adenopathy in abdomen, and rising LFTs Review of Systems All systems: negative Constitutional: Reports as per HPI Past Medical History Past Medical History: Cancer, Hyperlipidemia, Hypertension Additional Past Medical History / Comment(s): esophogeal cancer. History of Any Multi-Drug Resistant Organisms: None Reported Past Surgical History: No Surgical Hx Reported Additional Past Surgical History / Comment(s): cataract surgery. Past Anesthesia/Blood Transfusion Reactions: No Reported Reaction Past Psychological History: No Psychological Hx Reported Smoking Status: Never smoker Past Alcohol Use History: None Reported Past Drug Use History: None Reported - Past Family History Mother Family Medical History: Cancer Medications and Allergies Home Medications Medication Instructions Recorded Confirmed Type Polyethylene Glycol 3350 [Miralax] 17 gm PO BID 06/06/20 06/06/20 History Allergies Allergy/AdvReac Type Severity Reaction Status Date / Time No Known Allergies Allergy Verified 06/06/20 16:17 Physical Exam Vitals: Vital Signs Temp Pulse Pulse Resp BP BP Pulse Ox 06/07/20 08:24 97.0 F L 70 18 125/70 99 10/14/20 08:15 18 06/06/20 23:00 97.9 F 72 18 142/77 100 06/06/20 20:00 97.9 F 72 18 116/68 100 06/06/20 19:06 69 18 110/69 100 06/06/20 17:00 66 18 112/63 98 06/06/20 16:10 98.1 F 76 18 111/66 100 06/06/20 15:33 98 F 86 18 114/74 98 Intake and Output 06/06/20 06/07/20 06/07/20 22:59 06:59 14:59 Intake Total 250 Balance 250 Intake: Oral 250 Other: # Voids 1 Weight 53.524 kg 53.524 kg - Constitutional General appearance: cooperative, thin - EENT Eyes: poor dentition ENT: NA/AT - Neck Neck: lymphadenopathy - Respiratory Respiratory: bilateral: diminished, wheezing - Cardiovascular Rhythm: regular Heart sounds: normal: S1, S2 - Gastrointestinal General gastrointestinal: decreased bowel sounds, organomegaly, tenderness - Integumentary Integumentary: pale - Neurologic Neurologic: CNII-XII intact - Musculoskeletal Musculoskeletal: generalized weakness - Psychiatric Psychiatric: A&O x's 3, appropriate affect, intact judgment & insight Results CBC & Chem 7: 06/07/20 15:33 06/06/20 15:52 Labs: Abnormal Lab Results - Last 24 Hours (Table) 06/06/20 06/06/20 Range/Units 15:52 15:52 RBC 3.20 L (4.30-5.90) m/uL Hgb 10.0 L (13.0-17.5) gm/dL Hct 29.3 L (39.0-53.0) % Plt Count 136 L (150-450) k/uL Lymphocytes # 0.4 L (1.0-4.8) k/uL Monocytes # 1.1 H (0-1.0) k/uL Sodium 133 L (137-145) mmol/L Chloride 96 L (98-107) mmol/L Glucose 114 H (74-99) mg/dL AST 192 H (17-59) U/L ALT 218 H (4-49) U/L Alkaline Phosphatase 417 H (38-126) U/L Comments: Recent PET Scan Assessment and Plan (1) Malnutrition Current Visit: Yes Status: Acute Code(s): E46 - UNSPECIFIED PROTEIN-CALORIE MALNUTRITION SNOMED Code(s): 50959358 (2) Anorexia Current Visit: No Status: Acute Code(s): R63.0 - ANOREXIA SNOMED Code(s): 89561639 (3) Constipation Current Visit: No Status: Acute Code(s): K59.00 - CONSTIPATION, UNSPECIFIED SNOMED Code(s): 50877296 (4) Esophageal cancer, stage IV Current Visit: No Status: Acute Code(s): C15.9 - MALIGNANT NEOPLASM OF ESOPHAGUS, UNSPECIFIED SNOMED Code(s): 772596010 Plan: Assessment and Recommendations: Malnutrition and Dehydration: - Discussed with Dieticien and Primary team: Unable to place tube feed or DOphoff, therefore plan for TPN at this time in anticipation to initiate chemotherapy and radiation and shrink some of the disease burden to allow for po intake. Metastatic Esophageal Cancer: - Consult placed for Dr. Collins as chemoradiation was to begin this Friday, although unable secondary to above, Radiation oncology for recommendations of radiation to decrease burden of symptoms Increased LFTs: - This is worsening since last visit - Ultrasound to further assess for dilation - No liver mets were identified on recent PET scan Plan: - Double Lumen Picc - Radiation Onc Recs plus or minus systemic treatment emergently - Anemia and nutritional work-up - Imaging of abdomen with increased LFTs and adenopathy in abdomen on duodenum. - If unable to improve baseline status patient could be sent for percutaneous feeding tube or stent placement through [facility], this had been discussed prior with him .
[2020-06-07] MEDS ORDERED: LIDOCAINE 1% INJ 10MG/ML (20 ML MDV) ONE (14:34)
[2020-06-07] MEDS ORDERED: LIDOCAINE 1% INJ 10MG/ML (20 ML MDV) SQ ONE (14:39)
[2020-06-07] MEDS ORDERED: MVI, ADULT NO.4 WITH VIT K 10 ML, TRACE (CONC-1ML/DOSE) 1 ML in AMINO ACID 4.25%-D10W+L... IV SCH ×3 (15:00)
--- NOTE | 2020-06-07 15:15 | IR ---
PICC LINE PLACEMENT: HISTORY: Infection requiring long-term antibiotic therapy PROCEDURE: Ultrasound and fluoroscopic guidance of PICC line placement. COMPLICATIONS: None ANESTHESIA: 1. 1% Lidocaine locally. FINDINGS/TECHNIQUE: The procedure was explained to the patient. The risks, complications, benefits and alternatives were discussed and any questions were answered. Informed consent was obtained. The patient was placed supine on the fluoroscopic table and prepped and draped in the usual sterile fash ion. Utilizing a 21 gauge needle and sonographic and fluoroscopic guidance, access in the left ceph alic vein was achieved and there is placement of a 0.018 guidewire. The vein is patent. A 4-F sheat h was placed over the guidewire. The guidewire and dilator were removed and a 4-F. PICC line was omer lidia through the sheath with the tip at the level of the SVC. The sheath was removed, the catheter wa s flushed and sutured into position. The patient was stable throughout the procedure and remained st able upon discharge from the Department of Radiology. The vein puncture was patent under ultrasound. A pringle scale image was obtained to document patency of the vein punctured. All elements of the maximal barrier technique were utilized. FLUOROSCOPY TIME: 0.6 minutes and one image submitted IMPRESSION: Successful PICC line placement under ultrasound and fluoroscopic guidance.
[2020-06-07 16:01] LABS: Basophils % (A) 0 %; Eosinophils % (A) 1 %; HCT 27.8 % (39.0-53.0); HGB 8.9 gm/dL (13.0-17.5); Lymphocytes # (A) 0.5 k/uL (1.0-4.8); Lymphocytes % (A) 11 %; MCHC 32.1 g/dL (31.0-37.0); MCV 93.6 fL (80.0-100.0); Monocytes # (A) 0.8 k/uL (0-1.0); Monocytes % (A) 17 %; Neutrophils # (A) 3.1 k/uL (1.3-7.7); Neutrophils % (A) 67 %; Platelet Count 132 k/uL (150-450); RBC 2.97 m/uL (4.30-5.90); RDW 13.6 % (11.5-15.5); Reticulocyte % 3.6 % (0.5-2.0); WBC 4.5 k/uL (3.8-10.6)
[2020-06-07 16:15] LABS: Partial Thromboplastin Time 22.7 sec (22.0-30.0)
[2020-06-07] MEDS: FAT EMULSION 20% 250 ML in EMPTY BAG 1 BAG IV SCH (17:43)
[2020-06-07] MEDS: IOPAMIDOL CONTRAST (ORAL USE) VIAL PO PRN ×2 (21:00→22:02)
--- NOTE | 2020-06-07 21:14 | P.GSCN ---
History of Present Illness Consult date: 06/07/20 Reason for Consult: Dysphagia History of present illness: 70-year-old male known to our service. 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 We attempted placement of a PEG tube on Friday but we were unable to advance beyond the mid to distal esophageal mass. At that time the patient and the and I had a long discussion about the options. Plan at that time worse for the patient to follow up with [facility] either over the weekend or as an outpatient. Apparently he went yesterday for chemo teaching and was found to be malnourished and hypotensive. He was sent to the hospital for rehydration and PICC line with TPN was started. Review of Systems The patient denies any acute changes in vision or hearing, no shortness of breath, no dysuria or hematuria, no headache, no runny nose, no rectal bleeding or melena Past Medical History Past Medical History: Cancer, Hyperlipidemia, Hypertension Additional Past Medical History / Comment(s): esophogeal cancer. History of Any Multi-Drug Resistant Organisms: None Reported Past Surgical History: No Surgical Hx Reported Additional Past Surgical History / Comment(s): cataract surgery. Past Anesthesia/Blood Transfusion Reactions: No Reported Reaction Past Psychological History: No Psychological Hx Reported Smoking Status: Never smoker Past Alcohol Use History: None Reported Past Drug Use History: None Reported - Past Family History Mother Family Medical History: Cancer Medications and Allergies Home Medications Medication Instructions Recorded Confirmed Type Polyethylene Glycol 3350 [Miralax] 17 gm PO BID 06/06/20 06/06/20 History Allergies Allergy/AdvReac Type Severity Reaction Status Date / Time No Known Allergies Allergy Verified 06/06/20 16:17 Surgical - Exam Vital Signs Temp Pulse Resp BP Pulse Ox 98 F 86 18 114/74 98 06/06/20 15:33 06/06/20 15:33 06/06/20 15:33 06/06/20 15:33 06/06/20 15:33 Physical exam: General: Malnourished appearing elderly male HEENT: Normocephalic, sclerae nonicteric Abdomen: Nontender, nondistended Extremities: No edema Neuro: Alert and oriented Results - Labs 06/07/20 15:33 06/06/20 15:52 Abnormal Lab Results - Last 24 Hours (Table) 06/07/20 Range/Units 15:33 RBC 2.97 L (4.30-5.90) m/uL Hgb 8.9 L (13.0-17.5) gm/dL Hct 27.8 L (39.0-53.0) % Plt Count 132 L (150-450) k/uL Lymphocytes # 0.5 L (1.0-4.8) k/uL Retic Count 3.6 H (0.5-2.0) % Diabetes panel 06/07/20 Range/Units 15:33 Triglycerides 70 (<150) mg/dL Assessment and Plan (1) Esophageal cancer, stage IV Narrative/Plan: 70-year-old male known to our service with recent diagnosis of metastatic esopha geal cancer. Yesterday I spoke to the nurse navigator at [facility] by phone as well as Dr. Stefan Hansen interventional GI. They were going to contact the patient to be assessed for esophageal stent placement with PEG tube placement at that time versus interventional radiology gastrostomy tube placement. Patient is now hospitalized here. I discussed the case with oncology. They agree with transfer to [facility] for further intervention if the family is agreeable. Previously the patient and I with his had discussed options of open gastrostomy tube placement which remains a viable option however carry slightly increased morbidity, does not alleviate dysphagia, and could postpone some of his therapy. We'll discuss further with the patient and his tomorrow. Current Visit: No Status: Acute Code(s): C15.9 - MALIGNANT NEOPLASM OF ESOPHAGUS, UNSPECIFIED SNOMED Code(s): 405063765
[2020-06-07 22:50] LABS: Prothrombin Time 10.2 sec (9.0-12.0)
--- NOTE | 2020-06-07 23:22 | CT ---
EXAMINATION TYPE: CT abdomen pelvis w con DATE OF EXAM: 06/07/2020 COMPARISON: 05/19/2020 HISTORY: Assess for obstruction and liver. CT DLP: 434 mGycm Automated exposure control for dose reduction was used. CONTRAST: Performed with IV Contrast, patient injected with 100 mL of Isovue 300. Images were obtained from the diaphragm to the floor the pelvis with IV and oral contrast. There is mild subsegmental atelectasis at the lung bases. There is minimal pleural thickening left jenny ng base. Heart size is normal. There is very small pericardial effusion. Gallbladder is well-distended. There is mild fullness of the biliary tree. Common bile duct is 10 mm. Spleen is intact. Stomach is intact. The limited evaluation of the lower esophagus shows circumferen tial thickening of the esophagus at the level of the left pulmonary vein. This measures up to 13 mm i n thickness. There is irregular low density mass at the head of the pancreas. There is some lateral displacement o f the descending duodenum. Mass measures 5.3 x 3.8 cm. There is no adrenal mass. There is no focal liver defect. Kidneys show satisfactory contrast opacific ation. There is no hydronephrosis. There is 2 cm cortical cyst medial left kidney. The ureters are no t dilated. Delayed images show normal renal excretion. There is no retroperitoneal adenopathy. Bladde r distends smoothly. There is no inguinal hernia. There is no free fluid in the pelvis. There is norm al oral contrast opacification of the small bowel. There is no sign of a small bowel obstruction. Zander endix is not definitely seen. There is no sign of thickened appendix. The lumbar vertebra have normal alignment. The posterior elements are intact. Disc spaces are fairly normal. Bony pelvis is intact. Hip joints are intact. There is some degenerative spurring at the hip joints. There is no ascites. There is no sign of free air. IMPRESSION: Annular thickening of the wall of the lower esophagus consistent with tumor. Mass at the head of the pancreas consistent with tumor. Mass is not changed compared to 05/08/2020 CT scan. Wall thickening of the esophagus unchanged compared to PET/CT scan of 05/19/2020. Mild prominence of the biliary tree which appears slightly increased compared to old CT scan of 2019. Obstruction due to pancreatic mass is suspected.
[2020-06-08 04:09] LABS: % Iron Saturation 9.24 (15.00-50.00); Ferritin 335.7 ng/mL (22.0-322.0); Folate, Serum 23.7 ng/mL
[2020-06-08 05:10] VITALS: RESP 16
[2020-06-08] MEDS: SODIUM CHLORIDE 0.9% 1,000 ML IV SCH ×2 (06:21→19:46)
[2020-06-08 06:56] LABS: Basophils # (A) 0.1 k/uL (0-0.2); Basophils % (A) 1 %; Eosinophils % (A) 1 %; HCT 24.8 % (39.0-53.0); HGB 8.5 gm/dL (13.0-17.5); Lymphocytes # (A) 0.4 k/uL (1.0-4.8); Lymphocytes % (A) 8 %; MCH 31.5 pg (25.0-35.0); MCHC 34.3 g/dL (31.0-37.0); MCV 91.8 fL (80.0-100.0); Mean Platelet Volume 8.1; Monocytes % (A) 20 %; Neutrophils # (A) 3.3 k/uL (1.3-7.7); Neutrophils % (A) 66 %; Platelet Count 127 k/uL (150-450); RBC 2.71 m/uL (4.30-5.90); RDW 13.2 % (11.5-15.5)
[2020-06-08] MEDS ORDERED: 1: MVI, ADULT NO.4 WITH VIT K 10 ML, TRACE (CONC-1ML/DOSE) 1 ML in AMINO ACID 4.25%-D10W IV SCH ×3 (07:00)
[2020-06-08] MEDS: PANTOPRAZOLE 40 MG/10 ML VIAL IVP SCH (08:35)
[2020-06-08 09:53] LABS: African American GFR (CKD) 111.6 (60.0-200.0); Albumin 3.3 g/dL (3.80-4.90); Albumin/Globulin Ratio 1.83 (1.60-3.17); Anion Gap 8.8 mmol/L (4.00-12.00); BUN/Creat Ratio 12.86 Ratio (12.00-20.00); Calcium 8.8 mg/dL (8.7-10.3); Carbon Dioxide 28.2 mmol/L (21.6-31.8); Globulin 1.8 g/dL (1.6-3.3); Magnesium 1.5 mg/dL (1.5-2.4); Non-African American GFR(CKD) 96.3 (60.0-200.0); Phosphorus 3.9 mg/dL (2.4-5.1); Potassium 3.8 mmol/L (3.5-5.5); Total Bilirubin 0.8 mg/dL (0.3-1.2); Total Protein 5.1 g/dL (6.2-8.2)
[2020-06-08] MEDS ORDERED: LORazepam 2 MG/ML INJ IV PRN (11:12)
--- NOTE | 2020-06-08 11:31 | P.CONS ---
History of Present Illness - Reason for Consult Consult date: 06/08/20 Distal esophageal cancer - Chief Complaint weight loss and post prandial back pain - History of Present Illness Mr. Dumas is a 70 years old gentleman presented with weight loss and post prandial back pain, his symptoms have started since November of this year , he has lost more than 20 pounds since February 2020, CAT scan of the chest revealed 4.4 x 4.5x 5.4 cm left supraclavicular lymph nodes, this lymph nodes encasing the left internal and external jugular veins with narrowing at the junction of the jugular subclavian and left brachiocephalic veins, there is bulky subcarinal mass or lymph nodes diffusely adjacent to the mid distal thoracic esophagus, or may reflect diffuse mass with exophytic component or a mass abutting bulky subcarinal node noted metastasis, this mass obstructing the esophagus from the level of subcarina to distal esophagus , the patient underwent endoscopy at [facility] , it was found at 30 cm from the incisors a friable fungating mass that completely obstructing the esophagus, it was a challenging to pass an adult endoscope through the mass, however the pediatric gastroscope was used and passed the lesion , the lesion extends to the distal esophagus, but not to the GE junction . Biopsies were taken from the mass and came back positive for poorly differentiated squamous cell carcinoma. In 05/19/2020, PET scan showed market thickening in the esophagus beginning at the level of [place] extending through 5-6 cm inferiorly, anterior to this there is a large mass abnormal hypermetabolic subcarinal lymph nodes measures 3.5 x 2.5 cm with SUV 13.83, there is left supraclavicular hypermetabolic 3.3 x 3.3 with SUV 8.65 lymph nodes with extension to the inferior and superior mediastinal, there is abnormal heterogeneous mass in the head of the pancreas measures 2.6 x 3.3 cm with SUV 8.67. 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 At this time the patient denies pain, nausea, vomiting. he complains of constipation due to poor oral intake, he is still able to swallow water and his saliva. Review of Systems Constitutional: Reports anorexia, Reports fatigue, Reports poor appetite, Reports weakness, Reports weight loss Eyes: denies blurred vision, denies pain Ears, nose, mouth and throat: Denies headache, Denies sore throat Cardiovascular: Denies chest pain, Denies shortness of breath Gastrointestinal: Reports change in bowel habits, Reports constipation, Reports loss of appetite Musculoskeletal: Reports as per HPI Integumentary: Reports as per HPI Neurological: Reports as per HPI Psychiatric: Reports as per HPI Endocrine: Reports as per HPI Hematologic/Lymphatic: Reports as per HPI Allergic/Immunologic: Reports as per HPI Past Medical History Past Medical History: Cancer, Hyperlipidemia, Hypertension Additional Past Medical History / Comment(s): esophogeal cancer. History of Any Multi-Drug Resistant Organisms: None Reported Past Surgical History: No Surgical Hx Reported Additional Past Surgical History / Comment(s): cataract surgery. Past Anesthesia/Blood Transfusion Reactions: No Reported Reaction Past Psychological History: No Psychological Hx Reported Smoking Status: Never smoker Past Alcohol Use History: None Reported Past Drug Use History: None Reported - Past Family History Mother Family Medical History: Cancer Medications and Allergies Home Medications Medication Instructions Recorded Confirmed Type Polyethylene Glycol 3350 [Miralax] 17 gm PO BID 06/06/20 06/06/20 History Allergies Allergy/AdvReac Type Severity Reaction Status Date / Time No Known Allergies Allergy Verified 06/06/20 16:17 Physical Exam Vitals: Vital Signs Temp Pulse Pulse Resp BP Pulse Ox 06/08/20 05:09 98.5 F 78 16 133/70 99 06/07/20 21:01 98.1 F 70 14 128/70 100 06/07/20 16:00 68 16 06/07/20 15:00 98.2 F 70 16 145/77 100 Intake and Output 06/07/20 06/08/20 06/08/20 22:59 06:59 14:59 Intake Total 480 590 Balance 480 590 Intake: Oral 480 590 Other: Voiding Method Toilet # Voids 1 2 2 - Constitutional General appearance: no acute distress, thin - EENT Eyes: EOMI Ears: bilateral: normal - Neck Neck: lymphadenopathy (left supraclavicular) Carotids: negative: upstroke normal, upstroke delayed, upstroke diminished, upstroke bounding, bruit absent, bruit present - Respiratory Respiratory: negative: CTA, diminished, dullness, rales, rhonchi, wheezing, prolonged expiration, prolonged inspiration, other - Cardiovascular Heart sounds: normal: S1, S2 - Gastrointestinal General gastrointestinal: normal bowel sounds Results CBC & Chem 7: 06/08/20 06:11 06/08/20 06:11 Labs: Abnormal Lab Results - Last 24 Hours (Table) 06/07/20 06/07/20 06/08/20 Range/Units 15:33 15:33 06:11 RBC 2.97 L (4.30-5.90) m/uL Hgb 8.9 L (13.0-17.5) gm/dL Hct 27.8 L (39.0-53.0) % Plt Count 132 L (150-450) k/uL Lymphocytes # 0.5 L (1.0-4.8) k/uL Retic Count 3.6 H (0.5-2.0) % Sodium 132 L (135-145) mmol/L Chloride 95 L (96-109) mmol/L Glucose 131 H (70-110) mg/dL Iron 22 L (65-175) ug/dL % Saturation 9.24 L (15.00-50.00) Ferritin 335.7 H (22.0-322.0) ng/mL AST 188 H (14-35) U/L ALT 252 H (10-49) U/L Alkaline Phosphatase 442 H (41-126) U/L Total Protein 5.1 L (6.2-8.2) g/dL Albumin 3.30 L (3.80-4.90) g/dL 06/08/20 Range/Units 06:11 RBC 2.71 L (4.30-5.90) m/uL Hgb 8.5 L (13.0-17.5) gm/dL Hct 24.8 L (39.0-53.0) % Plt Count 127 L (150-450) k/uL Lymphocytes # 0.4 L (1.0-4.8) k/uL Retic Count (0.5-2.0) % Sodium (135-145) mmol/L Chloride (96-109) mmol/L Glucose (70-110) mg/dL Iron (65-175) ug/dL % Saturation (15.00-50.00) Ferritin (22.0-322.0) ng/mL AST (14-35) U/L ALT (10-49) U/L Alkaline Phosphatase (41-126) U/L Total Protein (6.2-8.2) g/dL Albumin (3.80-4.90) g/dL Assessment and Plan (1) Esophageal cancer, stage IV Current Visit: No Status: Acute Code(s): C15.9 - MALIGNANT NEOPLASM OF ESOPHAGUS, UNSPECIFIED SNOMED Code(s): 151479759 (2) Seizure Narrative/Plan: The patient has an episode of seizures at the exam room in our department when he was getting ready for simulation, his has noticed multiple episodes of seizures in the last week. Plan for simulation has been canceled . He will be transferred to the floor again, MRI of the brain will be requested stat to rule out metastatic disease Current Visit: Yes Status: Acute Code(s): R56.9 - UNSPECIFIED CONVULSIONS SNOMED Code(s): 85681343 Plan: Images reviewed , the patient will get a benefit of a course of palliative radiotherapy to the distal esophagus , our intend to shrink the size of the mass and alleviate the obstruction of the lumen , hoping the patient will be able to resume his nutrition orally. I talked to Mr. Dumas about the rationale , technique ,and the potential acute and late side effects of the treatment, he agreed to proceed. His radiotherapy can be given as outpatient if he is medically stable.
[2020-06-08] MEDS: MAGNESIUM SULFATE-D5W PMX 1 GM in DEXTROSE/WATER 1 100ML.BAG IVPB SCH ×2 (11:43→14:42)
[2020-06-08] MEDS: POTASSIUM CHLORIDE 10 MEQ in WATER FOR INJECTION 1 100ML.BAG IVPB SCH ×2 (11:43→14:42)
[2020-06-08 11:54] VITALS: BP 93/64; PULSE 71; TEMP 97.7
[2020-06-08 12:20] LABS: Glucose,Whole Blood 137 mg/dL (75-99)
[2020-06-08] MEDS: INSULIN ASPART (NovoLOG) 100 UNIT/ML VIAL SQ SCH ×2 (12:39→18:21)
--- NOTE | 2020-06-08 12:44 | P.DS ---
Providers Date of admission: 06/06/20 15:59 Expected date of discharge: 06/08/20 Attending physician: Melvin Bain Consults: 06/06/20 15:58 Consult Physician Routine Consulting Provider: Job Ayon Consult Reason/Comments: oncology consult Do you want consulting provider notified?: Yes 06/07/20 14:07 Consult Physician Routine Consulting Provider: Iban Collins Consult Reason/Comments: Anticipating chemoradiation this week, malnutrition unable to place TF Do you want consulting provider notified?: Yes 06/07/20 17:05 Consult Physician Routine Consulting Provider: Migel Munoz Consult Reason/Comments: Possible PEG tube Do you want consulting provider notified?: Yes 06/08/20 11:15 Consult Physician Routine Consulting Provider: Ammy Hatch Consult Reason/Comments: seizure Do you want consulting provider notified?: Yes Primary care physician: Melvin Bain Hospital Course: Final Diagnoses: Dehydration, malnutrition secondary to esophageal cancer. Obstruction secondary to pancreatic mass suspected as per CT. 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 Hyperlipidemia Hypertension Anorexia, Moderate protein malnutrition, BMI 16.9 No code, no CPR, no intubation. Hospital course:This is a 70-year-old gentleman past medical history of recently diagnosed esophageal cancer, patient reports stage IV , with unsuccessful feeding tube placement attempts, malnutrition, constipation, hyperlipidemia, hypertension, daily alcohol consumption of 5-6 beers, presented to his oncologist's office yesterday. Patient continued to lose weight, malnourished, dehydrated and hypotensive. Oncology ANALYTICAL STRATEGIST reports systolic blood pressure was in the 70s and sent him to the ER. Patient reports he is scheduled to begin chemotherapy this Friday, port placement attempted but unsuccessful due to his dehydration.Recently he presented to the ER on 06/04/2020 with complaints of constipation, responded well to molasses enema. Denies nausea, vomiting. Denies abdominal pain. Denies chest pain, palpitations or shortness of breath. 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 Findings were discussed with surgery and GI. Both recommending transfer to tertiary care center secondary to location of mass, to facilitate advanced endoscopy with biopsy, surgical oncologist which are not available at [facility]. Transfer initiated to [facility]. Records be obtained from both oncology's office and [facility]. Vital signs stable, maintaining O2 sats of 100% on room air. Afebrile, normal WBC, hemoglobin 10, platelets 136, neutrophils 4.1, lymphocytes 7, sodium 133, potassium 4.3, BUN 11, creatinine 0.71, ionized calcium 4.9, magnesium 1.6, total bili 1.1. Mildly elevated LFTs; AST 192, ALT 218, alk phos 417. Amylase/lipase pending. Albumin 3.8. 06/08/2020 PICC line placed, tolerated procedure well. Receiving IV fluid hydration, TPN.CT of abdomen and pelvis completed yesterday reported annular thickening of the wall of the lower esophagus consistent with tumor, mass at the head of the pancreas consistent with tumor, unchanged compared to 05/08/2020 CT, wall thickening of the esophagus unchanged compared to patent/computed tomography scan of 05/19/2020, mild prominence of the biliary tree slightly increased compared to prior CT of 05/08/2020, obstruction due to pancreatic mass suspected. Discussed CODE STATUS, patient requested no code, no CPR, no intubation. Patient has many questions regarding staging of his cancer .evaluated by oncology, surgery and radiation oncology. Dr. Munoz spoke with Dr. Stefan Hansen, interventional GI at [facility] regarding esophageal stent placement with PEG tube placement versus interventional radiology gastrostomy tube placement. Surgery further discussed with oncology; both agree with transfer to [facility] for further intervention after radiation treatment today. Attempted radiation but developed a seizure while in the chair prior to the treatment. Oncology requesting to continue/proceed with transfer to [facility] today. Magnesium 1.5, receiving replacement supplementation. Brain MRI pending. Patient will be transferred to [facility] today in a stable condition with guarded prognosis, pending neurology evaluation/clearance for transfer. The impression and plan of care has been dictated as directed. : I performed a history and examination of this patient, discussed the same with the dictator. I agree with the dictator's note ,documented as a scribe. Any additional findings or plans will be noted. Patient Condition at Discharge: Stable Plan - Discharge Summary Discharge Rx Participant: No New Discharge Prescriptions: No Action Polyethylene Glycol 3350 [Miralax] 17 gm PO BID Discharge Medication List Polyethylene Glycol 3350 [Miralax] 17 gm PO BID 06/06/20 [History] Follow up Appointment(s)/Referral(s): Melvin Bain DO [Primary Care Provider] - 1-2 days
--- NOTE | 2020-06-08 13:49 | MR ---
EXAMINATION TYPE: MR brain wo/w con DATE OF EXAM: 06/08/2020 COMPARISON: None HISTORY: Seizures CONTRAST: Performed utilizing 5.5 mL intravenous Gadavist gadolinium contrast. TECHNIQUE: Multiplanar, multiecho imaging on a 3.0 Ele magnet is performed through the brain. Stud y is performed within 24 hours of arrival to the hospital. The craniovertebral junction is normal. The pituitary is normal. No mass effect is evident. Diffusion-weighted imaging is performed. No abnormal hyperintensity is present to suggest an acute i ntracranial infarct or acute ischemic change. There is mild periventricular white matter hyperintensity, likely on the basis of chronic white matte r ischemic changes. Some mild increased signal within the brainstem may also reflect chronic white ma tter ischemic change. Ventricles and sulci are appropriate for the patient age. No abnormal enhancement is evident. Temporal lobes appear symmetrical. IMPRESSIONS: 1. Scattered chronic appearing white matter ischemic type changes.
--- NOTE | 2020-06-08 14:45 | P.CNNES ---
History of Present Illness Consult date: 06/08/20 Requesting physician: Cally Romero Reason for Consult: Seizure History of Present Illness: Patient is a 70-year-old male who has been diagnosed with esophageal cancer in April 2020, now metastasized to pancreas, has been admitted for 3 different episodes of syncope versus seizure. Patient states that the first episode occurred about a month ago, when he was a doctor's office, sitting waiting for the doctor. He tried to reach something, and then he started shaking. He did not pass out, did not lose consciousness. He did feel dizzy before symptoms started. The second episode occurred when he was at the [facility]. After sitting for some time and as he stood up, he felt dizzy lightheaded, he sat down in the chair and then stiffened up and started shaking, did for almost 1 minute. Patient states that during this event he was still oriented, knew who he is, or where he is at, and what was going on. He never lost consciousness. The third event occurred today when he was undergoing consultation for possible radiation therapy, he was sitting in the wheelchair, when his low back was hurting. He f elt lightheaded, and then dizzy and then started shaking. His blood pressure was noted to be 85/54. It appeared he was dehydrated. Patient was brought to the hospital. Patient had undergone an MRI of brain with and without contrast revealed scattered chronic-appearing white matter ischemic type changes. CT of abdomen and pelvis shows annular thickening of the wall of the lower esophagus consi stent with tumor. Mass at the head of pancreas consistent with tumor. Masses not change compared to 05/08/2020. Mild prominence of the biliary tree which appears slightly increased compared to the old computed tomography scan of 05/08/2020. Obstruction due to pancreatic mass is suspected. Patient's blood test shows WBC 5.0, hemoglobin 8.5, platelets 127. Sodium 132 potassium 3.8, renal functions normal. Hepatic panel shows AST 188, ALT 252. B12 is 580, folate 23.7, and malaise 25 and lipase 29 both normal. Patient never smoked. Does not have diabetes. He has hypertension and hyperli pidemia which is controlled. Patient has history of drinking alcohol, beer a lot. He would drink from 6-10 beers every day for about 30-35 years. Never had pancreatitis. Review of Systems Denies any chest pain shortness of breath. He has some cough at times. Sometimes dysphagia. Patient has PPN. Patient has dizziness lightheadedness. Patient has abdominal pain. Denies neck or back pain. Patient has generalized weakness. Fatigue. Denies fever or chills. All other review of systems reviewed and noncontributory. Past Medical History Past Medical History: Cancer, Hyperlipidemia, Hypertension Additional Past Medical History / Comment(s): esophogeal cancer. History of Any Multi-Drug Resistant Organisms: None Reported Past Surgical History: No Surgical Hx Reported Additional Past Surgical History / Comment(s): cataract surgery. Past Anesthesia/Blood Transfusion Reactions: No Reported Reaction Past Psychological History: No Psychological Hx Reported Smoking Status: Never smoker Past Alcohol Use History: None Reported Past Drug Use History: None Reported - Past Family History Mother Family Medical History: Cancer Medications and Allergies Home Medications Medication Instructions Recorded Confirmed Type Polyethylene Glycol 3350 [Miralax] 17 gm PO BID 06/06/20 06/06/20 History Allergies Allergy/AdvReac Type Severity Reaction Status Date / Time No Known Allergies Allergy Verified 06/06/20 16:17 Physical Examination - Vital Signs Vital Signs: Vital Signs Temp Pulse Pulse Resp BP Pulse Ox 06/08/20 11:53 97.7 F 71 16 93/64 99 06/08/20 05:09 98.5 F 78 16 133/70 99 06/07/20 21:01 98.1 F 70 14 128/70 100 06/07/20 16:00 68 16 06/07/20 15:00 98.2 F 70 16 145/77 100 Intake and Output 06/07/20 06/08/20 06/08/20 22:59 06:59 14:59 Intake Total 480 590 Balance 480 590 Intake: Oral 480 590 Other: Voiding Method Toilet Toilet # Voids 1 2 2 On examination patient is an elderly male, somewhat thin built, in no acute distress. He is alert and awake oriented to time place and person. Speech and language functions are normal. Attention and concentration fund of knowledge is adequate. On cranial examination pupils are round and reacting to light, visual santiago are full on confrontation, extraocular muscles are intact with no nystagmus. Face is symmetric, tongue protrudes the midline. Palatal elevation and sensation normal. Hearing and shoulder shrug normal. Facial sensations normal. On muscle strength testing there is no pronator drift and the strength is normal in arms and legs distally and proximally. Deep tendon reflexes are 1+ and plantars downgoing. Sensory to touch is equal. No ataxia for [id number] testing. Tone and bulk of muscles are normal. Gait deferred. There is no carotid bruit, S1 and S2 audible. Peripheral pulses present, no edema. Chest is clear. Results - Laboratory Findings CBC and BMP: 06/08/20 06:11 06/08/20 06:11 Abnormal Lab Findings: Abnormal Labs 06/06/20 06/06/20 06/07/20 15:52 15:52 15:33 RBC 3.20 L 2.97 L Hgb 10.0 L 8.9 L Hct 29.3 L 27.8 L Plt Count 136 L 132 L Lymphocytes # 0.4 L 0.5 L Monocytes # 1.1 H Retic Count 3.6 H Sodium 133 L Chloride 96 L Glucose 114 H POC Glucose (mg/dL) Iron % Saturation Ferritin AST 192 H ALT 218 H Alkaline Phosphatase 417 H Total Protein Albumin 06/07/20 06/08/20 06/08/20 15:33 06:11 06:11 RBC 2.71 L Hgb 8.5 L Hct 24.8 L Plt Count 127 L Lymphocytes # 0.4 L Monocytes # Retic Count Sodium 132 L Chloride 95 L Glucose 131 H POC Glucose (mg/dL) Iron 22 L % Saturation 9.24 L Ferritin 335.7 H AST 188 H ALT 252 H Alkaline Phosphatase 442 H Total Protein 5.1 L Albumin 3.30 L 06/08/20 12:07 RBC Hgb Hct Plt Count Lymphocytes # Monocytes # Retic Count Sodium Chloride Glucose POC Glucose (mg/dL) 137 H Iron % Saturation Ferritin AST ALT Alkaline Phosphatase Total Protein Albumin Assessment and Plan Assessment: * Recurrent near syncopal spells with some shaking, without complete loss of consciousness or alteration in awareness, are likely not seizures. Probably vasovagal, versus hypovolemic or orthostatic. Patient's anemia and dehydration probably also contributing to these spells. * Malnutrition due to esophageal cancer * Esophageal cancer, stage IV. Plan: * Patient's MRI of the brain with and without contrast is normal with no evidence of cerebral metastatic disease. * The spells are most likely not seizures. No further neurological workup indicated. May consider outpatient EEG if these spells continue. No indication for antiepileptic medication. * Hydration. Treatment of other medical conditions as mentioned above. * Neurologically clear for transfer to [facility] for further oncological care. * Recommend no driving for these near syncopal spells, until cleared by his primary physician.
--- NOTE | 2020-06-08 15:31 | US ---
EXAMINATION TYPE: US abdomen complete DATE OF EXAM: 06/08/2020 COMPARISON: NONE CLINICAL HISTORY: increased LFTs, Knowns Pancreatic mass. EXAM MEASUREMENTS: Liver Length: 12.9 cm Gallbladder Wall: 0.1 cm CBD: 1.0 cm Spleen: 11.9 cm Right Kidney: 10.6 x 4.3 x 4.9 cm Left Kidney: 9.9 x 4.7 x 4.5 cm Pancreas: vascular pancreatic head mass measuring 4.3 x 3.8 x 4.4cm Liver: wnl Gallbladder: sludge vs small stones, partially obscured by overlying bowel gas Evidence for sonographic Miguel's sign: no CBD: dilated Spleen: wnl Right Kidney: No hydronephrosis or masses seen, ?ff surrounding Left Kidney: somewhat obscured by bowel gas, portions visualized wnl Upper IVC: wnl Abd Aorta: partially obscured by bowel gas, portions visualized wnl IMPRESSION: 1. Pancreatic head mass measuring 4 cm in diameter. This is evident on the prior CT abdomen pelvis . 2. Sludge or gravel within the gallbladder. 3. Small amount of free fluid may be adjacent to the right kidney
--- NOTE | 2020-06-08 16:00 | P.PN ---
Subjective Progress Note Date: 06/08/20 Principal diagnosis: Dysphagia Patient went down today for radiation therapy evaluation and had what initially was thought to represent a small seizure. Doing better now. MRI per neurology shows no evidence of brain metastasis. Patient still having dysphagia symptoms. Plans are in place for transfer. Objective - Vital Signs Vital signs: Vital Signs Temp 97.7 F 06/08/20 11:53 Pulse 71 06/08/20 11:53 Resp 16 06/08/20 11:53 BP 93/64 06/08/20 11:53 Pulse Ox 99 06/08/20 11:53 Intake & Output 06/07/20 06/08/20 06/08/20 18:59 06:59 18:59 Intake Total 490 830 750 Balance 490 830 750 Weight 53.524 kg Intake: Oral 490 830 750 Other: Voiding Method Toilet Toilet # Voids 1 2 2 - Exam Abdomen: Soft, nontender, nondistended - Labs CBC & Chem 7: 06/08/20 06:11 06/08/20 06:11 Labs: Abnormal Lab Results - Last 24 Hours (Table) 06/07/20 06/07/20 06/08/20 Range/Units 15:33 15:33 06:11 RBC 2.97 L (4.30-5.90) m/uL Hgb 8.9 L (13.0-17.5) gm/dL Hct 27.8 L (39.0-53.0) % Plt Count 132 L (150-450) k/uL Lymphocytes # 0.5 L (1.0-4.8) k/uL Retic Count 3.6 H (0.5-2.0) % Sodium 132 L (135-145) mmol/L Chloride 95 L (96-109) mmol/L Glucose 131 H (70-110) mg/dL POC Glucose (mg/dL) (75-99) mg/dL Iron 22 L (65-175) ug/dL % Saturation 9.24 L (15.00-50.00) Ferritin 335.7 H (22.0-322.0) ng/mL AST 188 H (14-35) U/L ALT 252 H (10-49) U/L Alkaline Phosphatase 442 H (41-126) U/L Total Protein 5.1 L (6.2-8.2) g/dL Albumin 3.30 L (3.80-4.90) g/dL 06/08/20 06/08/20 Range/Units 06:11 12:07 RBC 2.71 L (4.30-5.90) m/uL Hgb 8.5 L (13.0-17.5) gm/dL Hct 24.8 L (39.0-53.0) % Plt Count 127 L (150-450) k/uL Lymphocytes # 0.4 L (1.0-4.8) k/uL Retic Count (0.5-2.0) % Sodium (135-145) mmol/L Chloride (96-109) mmol/L Glucose (70-110) mg/dL POC Glucose (mg/dL) 137 H (75-99) mg/dL Iron (65-175) ug/dL % Saturation (15.00-50.00) Ferritin (22.0-322.0) ng/mL AST (14-35) U/L ALT (10-49) U/L Alkaline Phosphatase (41-126) U/L Total Protein (6.2-8.2) g/dL Albumin (3.80-4.90) g/dL Assessment and Plan (1) Esophageal cancer, stage IV Narrative/Plan: Continue TPN for now. Agree with plans for transfer for minimally invasive gastrostomy tube placement and possible esophageal stent. We'll sign off. Please call if plans for transfer are changed. Current Visit: No Status: Acute Code(s): C15.9 - MALIGNANT NEOPLASM OF ESOPHAGUS, UNSPECIFIED SNOMED Code(s): 412609477
[2020-06-08] MEDS: FAT EMULSION 20% 250 ML in EMPTY BAG 1 BAG IV SCH (16:19)
[2020-06-08 17:22] LABS: Glucose,Whole Blood 169 mg/dL (75-99)
[2020-06-08 20:31] LABS: Glucose,Whole Blood 146 mg/dL (75-99)
== END 2020-06-08 20:45 | disposition short-term general hospital (02) | DRG 641 ==
LOC: EC 15:31 → 6NMEDSUR 15:59
PROVIDERS: ADMIT Family Medicine; ATTEND Family Medicine
PROC: 3E0436Z Introduction of Nutritional Substance into Central Vein, Percutaneous Approach (ICD-10-PCS; 2020-06-07)
PROC: 02HV33Z Insertion of Infusion Device into Superior Vena Cava, Percutaneous Approach (ICD-10-PCS; principal; 2020-06-07 14:30)
DX: E44.0 Moderate protein-calorie malnutrition (principal); C77.1 Secondary and unspecified malignant neoplasm of intrathoracic lymph nodes; C78.89 Secondary malignant neoplasm of other digestive organs; Z68.1 Body mass index [BMI] 19.9 or less, adult; C15.5 Malignant neoplasm of lower third of esophagus; C17.0 Malignant neoplasm of duodenum; E87.1 Hypo-osmolality and hyponatremia; E86.0 Dehydration; Z20.828 Contact with and (suspected) exposure to other viral communicable diseases; D69.6 Thrombocytopenia, unspecified; R13.10 Dysphagia, unspecified; I95.9 Hypotension, unspecified; R56.9 Unspecified convulsions; Z66 Do not resuscitate; F10.10 Alcohol abuse, uncomplicated; K82.8 Other specified diseases of gallbladder; I10 Essential (primary) hypertension; E78.5 Hyperlipidemia, unspecified; R74.8 Abnormal levels of other serum enzymes; K59.00 Constipation, unspecified; D63.0 Anemia in neoplastic disease; R55 Syncope and collapse; E86.1 Hypovolemia; E83.42 Hypomagnesemia; E87.6 Hypokalemia; Z71.3 Dietary counseling and surveillance; Z79.899 Other long term (current) drug therapy; Z98.49 Cataract extraction status, unspecified eye; Z80.9 Family history of malignant neoplasm, unspecified
CPT/HCPCS: 36415; 36573; 70553; 74018; 74177; 76700; 80053; 82150; 82330; 82607; 82728; 82746; 83540; 83550; 83615; 83690; 83735; 83921; 84100; 84478; 84484; 85025; 85045; 85610; 85730; 93005; 96360; 96361; 96374; 99284; 99285

== ENCOUNTER 2020-06-24 13:48 | Inpatient (IN) | payer MEDICARE ==
[2020-06-24] MEDS ORDERED: SODIUM CHLORIDE 0.9% 500 ML 500 ML IV STA ×2 (14:07→15:30)
[2020-06-24] MEDS ORDERED: ACETAMINOPHEN TAB 500 MG TAB PO STA (14:07)
--- NOTE | 2020-06-24 14:44 | ED ---
General Adult HPI - General Chief complaint: Fever Stated complaint: fever/post chemo 06/23 Time Seen by Provider: 06/24/20 14:07 Source: patient, RN notes reviewed, old records reviewed Mode of arrival: ambulatory Limitations: no limitations - History of Present Illness Initial comments: 70-year-old male presenting for evaluation of fever. Patient has history of esophageal cancer and received chemotherapy yesterday. He noted fever yesterday evening and is presenting for evaluation. He does report a mild cough. No sore throat or rhinorrhea. No chest pain or abdominal pain. He denies rash. He denies dysuria or hematuria. - Related Data Home Medications Medication Instructions Recorded Confirmed Acetaminophen [Children's Tylenol] 1 dose PO Q4H PRN 06/24/20 06/24/20 Enoxaparin [Lovenox] 60 mg SQ Q12H 06/24/20 06/24/20 Zolpidem [Ambien] 10 mg PO HS 06/24/20 06/24/20 oxyCODONE HCL [OxyIR] 5 mg PO Q3H PRN 06/24/20 06/24/20 Allergies Allergy/AdvReac Type Severity Reaction Status Date / Time No Known Allergies Allergy Verified 06/24/20 15:07 Review of Systems ROS Statement: Those systems with pertinent positive or pertinent negative responses have been documented in the HPI. ROS Other: All systems not noted in ROS Statement are negative. Past Medical History Past Medical History: Cancer, Hyperlipidemia, Hypertension Additional Past Medical History / Comment(s): esophogeal cancer. 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 History of Any Multi-Drug Resistant Organisms: None Reported Past Surgical History: No Surgical Hx Reported Additional Past Surgical History / Comment(s): cataract surgery. stent in esophagus and peg tube insertion, Past Anesthesia/Blood Transfusion Reactions: No Reported Reaction Past Psychological History: No Psychological Hx Reported Smoking Status: Never smoker Past Alcohol Use History: None Reported Past Drug Use History: None Reported - Past Family History Mother Family Medical History: Cancer General Exam Limitations: no limitations General appearance: alert, in no apparent distress Head exam: Present: atraumatic, normocephalic Eye exam: Present: normal appearance, PERRL ENT exam: Present: normal oropharynx, mucous membranes moist Neck exam: Present: normal inspection. Absent: tenderness, meningismus Respiratory exam: Present: normal lung sounds bilaterally. Absent: respiratory distress, wheezes, rales Cardiovascular Exam: Present: normal rhythm, tachycardia GI/Abdominal exam: Present: soft. Absent: distended, tenderness, guarding, rebound Extremities exam: Present: normal inspection, normal capillary refill. Absent: pedal edema Neurological exam: Present: alert, oriented X3, CN II-XII intact. Absent: motor sensory deficit Psychiatric exam: Present: normal affect, normal mood Skin exam: Present: warm, dry, intact. Absent: cyanosis, diaphoretic Course Vital Signs 06/24/20 06/24/20 13:53 15:01 Temperature 103 F H Pulse Rate 126 H 109 H Respiratory 18 17 Rate Blood Pressure 94/54 123/65 O2 Sat by Pulse 95 95 Oximetry Medical Decision Making - Medical Decision Making 70-year-old male presenting with fever, recent chemotherapy. Patient has fever, tachycardia, and low blood pressure upon arrival. He's given IV hydration, ant ipyretics. Workup reveals a chest x-ray showing a small left pleural effusion, no focal pneumonia. Patient has a normal white blood cell count, he is not neutropenic. He is anemic. He has an elevated lactic acid. He's given IV hydration and started on broad-spectrum antibiotics awaiting urinalysis as well as viral testing. His influenza is negative. Coronavirus test is pending. He will be admitted for hydration and awaiting further testing. Case discussed with Dr. Hernandez who will admit. - Lab Data Result diagrams: 06/24/20 14:58 06/24/20 14:58 Lab Results 06/24/20 06/24/20 06/24/20 Range/Units 14:58 14:58 14:58 WBC 8.5 (3.8-10.6) k/uL RBC 2.67 L (4.30-5.90) m/uL Hgb 7.6 L (13.0-17.5) gm/dL Hct 24.0 L (39.0-53.0) % MCV 90.0 (80.0-100.0) fL MCH 28.4 (25.0-35.0) pg MCHC 31.6 (31.0-37.0) g/dL RDW 14.3 (11.5-15.5) % Plt Count 255 D (150-450) k/uL Neutrophils % 84 % Lymphocytes % 1 % Monocytes % 14 % Eosinophils % 0 % Basophils % 1 % Neutrophils # 7.2 (1.3-7.7) k/uL Lymphocytes # 0.1 L (1.0-4.8) k/uL Monocytes # 1.2 H (0-1.0) k/uL Eosinophils # 0.0 (0-0.7) k/uL Basophils # 0.1 (0-0.2) k/uL Hypochromasia Moderate Sodium 132 L (137-145) mmol/L Potassium 3.7 (3.5-5.1) mmol/L Chloride 97 L (98-107) mmol/L Carbon Dioxide 27 (22-30) mmol/L Anion Gap 8 mmol/L BUN 21 H (9-20) mg/dL Creatinine 0.69 (0.66-1.25) mg/dL Est GFR (CKD-EPI)AfAm >90 (>60 ml/min/1.73 sqM) Est GFR (CKD-EPI)NonAf >90 (>60 ml/min/1.73 sqM) Glucose 146 H (74-99) mg/dL Plasma Lactic Acid Gianni 3.3 H* (0.7-2.0) mmol/L Calcium 8.3 L (8.4-10.2) mg/dL Total Bilirubin 0.8 (0.2-1.3) mg/dL AST 31 (17-59) U/L ALT 53 H (4-49) U/L Alkaline Phosphatase 315 H (38-126) U/L Total Protein 5.5 L (6.3-8.2) g/dL Albumin 2.8 L (3.5-5.0) g/dL Influenza Type A RNA (Not Detectd) Influenza Type B (PCR) (Not Detectd) 06/24/20 Range/Units 14:58 WBC (3.8-10.6) k/uL RBC (4.30-5.90) m/uL Hgb (13.0-17.5) gm/dL Hct (39.0-53.0) % MCV (80.0-100.0) fL MCH (25.0-35.0) pg MCHC (31.0-37.0) g/dL RDW (11.5-15.5) % Plt Count (150-450) k/uL Neutrophils % % Lymphocytes % % Monocytes % % Eosinophils % % Basophils % % Neutrophils # (1.3-7.7) k/uL Lymphocytes # (1.0-4.8) k/uL Monocytes # (0-1.0) k/uL Eosinophils # (0-0.7) k/uL Basophils # (0-0.2) k/uL Hypochromasia Sodium (137-145) mmol/L Potassium (3.5-5.1) mmol/L Chloride (98-107) mmol/L Carbon Dioxide (22-30) mmol/L Anion Gap mmol/L BUN (9-20) mg/dL Creatinine (0.66-1.25) mg/dL Est GFR (CKD-EPI)AfAm (>60 ml/min/1.73 sqM) Est GFR (CKD-EPI)NonAf (>60 ml/min/1.73 sqM) Glucose (74-99) mg/dL Plasma Lactic Acid Gianni (0.7-2.0) mmol/L Calcium (8.4-10.2) mg/dL Total Bilirubin (0.2-1.3) mg/dL AST (17-59) U/L ALT (4-49) U/L Alkaline Phosphatase (38-126) U/L Total Protein (6.3-8.2) g/dL Albumin (3.5-5.0) g/dL Influenza Type A RNA Not Detected (Not Detectd) Influenza Type B (PCR) Not Detected (Not Detectd) Disposition Clinical Impression: Fever, Lactic acidosis Disposition: ADMITTED IP TO THIS [facility] Condition: Stable Is patient prescribed a controlled substance at d/c from ED?: No Referrals: Melvin Bain DO [Primary Care Provider] - 1-2 days Decision to Admit Reason: Admit from EC Decision Date: 06/24/20 Decision Time: 16:22
--- NOTE | 2020-06-24 15:25 | XR ---
EXAMINATION TYPE: XR chest 2V DATE OF EXAM: 06/24/2020 COMPARISON: 05/08/2020 INDICATION: Fever, post radiation and chemotherapy TECHNIQUE: Frontal and lateral views of the chest are obtained. FINDINGS: The heart size is normal. The pulmonary vasculature is normal. Small left pleural effusion is present.. Best visualized on lateral projection is an esophageal stent. IMPRESSION: 1. Small left pleural effusion. 2. Esophageal stent placement over the interval
[2020-06-24 15:31] LABS: Basophils # (A) 0.1 k/uL (0-0.2); Basophils % (A) 1 %; Eosinophils % (A) 0 %; HGB 7.6 gm/dL (13.0-17.5); Hypochromasia Moderate; Lymphocytes # (A) 0.1 k/uL (1.0-4.8); Lymphocytes % (A) 1 %; MCH 28.4 pg (25.0-35.0); MCHC 31.6 g/dL (31.0-37.0); Mean Platelet Volume 8.6; Monocytes # (A) 1.2 k/uL (0-1.0); Monocytes % (A) 14 %; Neutrophils # (A) 7.2 k/uL (1.3-7.7); Neutrophils % (A) 84 %; RBC 2.67 m/uL (4.30-5.90); RDW 14.3 % (11.5-15.5); WBC 8.5 k/uL (3.8-10.6)
[2020-06-24 15:32] LABS: Platelet Count 255 k/uL (150-450)
[2020-06-24 15:35] LABS: ALT 53 U/L (4-49); AST 31 U/L (17-59); African American GFR (CKD) >90 (>60 ml/min/1.73 sqM); Albumin 2.8 g/dL (3.5-5.0); Alkaline Phosphatase 315 U/L (38-126); Anion Gap 8 mmol/L; Blood Urea Nitrogen 21 mg/dL (9-20); Calcium 8.3 mg/dL (8.4-10.2); Carbon Dioxide 27 mmol/L (22-30); Chloride 97 mmol/L (98-107); Glucose 146 mg/dL (74-99); Non-African American GFR(CKD) >90 (>60 ml/min/1.73 sqM); Potassium 3.7 mmol/L (3.5-5.1); Sodium 132 mmol/L (137-145); Total Bilirubin 0.8 mg/dL (0.2-1.3); Total Protein 5.5 g/dL (6.3-8.2)
[2020-06-24] MEDS ORDERED: VANCOMYCIN IV PER PHARMACY 1 EACH MISC MISCELLANE PRN (16:19)
[2020-06-24] MEDS ORDERED: CEFEPIME 2 GM in SODIUM CHLORIDE 0.9% 100 ML IVPB STA (16:19)
[2020-06-24] MEDS ORDERED: ONDANSETRON 4 MG/2 ML VIAL IVP PRN (16:22)
[2020-06-24] MEDS ORDERED: NALOXONE 0.4 MG/ML 1 ML VIAL IV PRN (16:22)
[2020-06-24] MEDS ORDERED: VANCOMYCIN 1,250 MG in SODIUM CHLORIDE 0.9% 250 ML IVPB STA (16:23)
[2020-06-24] MEDS: SODIUM CHLORIDE 0.9% 1,000 ML IV SCH ×2 (16:36→23:19)
[2020-06-24] MEDS: ACETAMINOPHEN TAB 325 MG TAB PO PRN (18:53)
[2020-06-24 19:03] LABS: Appearance,Urine Clear (Clear); Bilirubin,Urine Negative (Negative); Blood,Urine Negative (Negative); Color,Urine Light Yellow; Glucose,Urine (UA) Negative (Negative); Ketones,Urine Negative (Negative); Leukocyte Esterase,Urine Negative (Negative); Nitrite,Urine Negative (Negative); Protein,Urine Negative (Negative); Specific Gravity,Urine 1.008 (1.001-1.035); Urobilinogen,Urine <2.0 mg/dL (<2.0)
[2020-06-24] MEDS: ENOXAPARIN 60 MG/0.6 ML SYRINGE SQ SCH (20:28)
[2020-06-24] MEDS: ZOLPIDEM 10 MG TAB PO PRN (21:17)
[2020-06-24] MEDS: CEFEPIME 2 GM in SODIUM CHLORIDE 0.9% 100 ML IVPB SCH (23:18)
[2020-06-25] MEDS: VANCOMYCIN 1,250 MG in SODIUM CHLORIDE 0.9% 250 ML IVPB SCH ×2 (05:16→17:01)
[2020-06-25 06:43] LABS: Basophils % (A) 1 %; Eosinophils % (A) 1 %; HCT 20.4 % (39.0-53.0); Hypochromasia Moderate; Lymphocytes # (A) 0.1 k/uL (1.0-4.8); Lymphocytes % (A) 3 %; MCH 29.1 pg (25.0-35.0); MCHC 32.6 g/dL (31.0-37.0); MCV 89.3 fL (80.0-100.0); Mean Platelet Volume 8.7; Monocytes # (A) 0.5 k/uL (0-1.0); Monocytes % (A) 13 %; Neutrophils # (A) 3.1 k/uL (1.3-7.7); Neutrophils % (A) 81 %; Platelet Count 204 k/uL (150-450); RBC 2.28 m/uL (4.30-5.90); RDW 14.5 % (11.5-15.5); WBC 3.8 k/uL (3.8-10.6)
[2020-06-25 06:56] LABS: HGB 6.6 gm/dL (13.0-17.5)
[2020-06-25] MEDS: ENOXAPARIN 60 MG/0.6 ML SYRINGE SQ SCH ×2 (08:29→20:35)
[2020-06-25] MEDS: CEFEPIME 2 GM in SODIUM CHLORIDE 0.9% 100 ML IVPB SCH ×3 (08:31→23:03)
[2020-06-25 10:32] LABS: African American GFR (CKD) 118.9 (60.0-200.0); Albumin 2.8 g/dL (3.80-4.90); Albumin/Globulin Ratio 1.47 (1.60-3.17); Anion Gap 7.3 mmol/L (4.00-12.00); Calcium 7.8 mg/dL (8.7-10.3); Carbon Dioxide 25.7 mmol/L (21.6-31.8); Globulin 1.9 g/dL (1.6-3.3); Non-African American GFR(CKD) 102.6 (60.0-200.0); Potassium 3.4 mmol/L (3.5-5.5); Total Bilirubin 1.2 mg/dL (0.2-1.2); Total Protein 4.7 g/dL (6.2-8.2)
[2020-06-25] MEDS ORDERED: Potassium Replacement Protocol 1 EACH MISC MISCELLANE PRN (10:39)
--- NOTE | 2020-06-25 10:46 | P.HPIM ---
History of Present Illness H&P Date: 06/24/20 Chief Complaint: Fever Patient is a 70-year-old male with a known history of hypertension, hyperlipidemia and recently diagnosed with esophageal cancer in April 2020 with positive lymph node left upper chest and mass in pancreas and also recent subclavian vein DVT currently on Lovenox at home came to ER with the complaints of fever. Denied any complaints of cough or sputum production. Patient underwent chemoradiation and stent placement to esophagus and also PEG t ube for nutrition. Patient was seen at [facility]. Denied any complaints of chest pain or shortness of breath. No abdominal pain. No diarrhea. No dysuria or hematuria. No cough or sputum production. Patient denied any hematemesis or melena. Chest x-ray showed small left pleural effusion. Esophageal stent placement over the interval. Laboratory data showed a bruising 8.5, hemoglobin 7.6, platelets 255 Absolute lymphocyte count is 0.1 Sodium 132, potassium 3.7, chloride 97 lactic acid 2.3, BUN 21 and 0.69, calcium 8.3 neck and ALT 53, AST 31, alk phos 315 albumin 2.8 UA negative for infection T-max on admission was 10 3F Patient is currently saturating at 97% on room air. Review of Systems Constitutional: Patient does have fever. No chills. . Generalized weakness and lethargic.. Abdomen: Patient denied nausea vomiting and diarrhea and abdominal pain. Cardiovascular: Patient denies any chest pain or short of breath no pa lpitations. Respiratory: patient denied any cough is from production. No shortness of breath Neurologic: Patient denied any numbness or tingling headache. Musculoskeletal: Patient denies any complaints of joint swelling or deformity. Skin: Negative Psychiatric: Negative Endocrine: No heat or cold intolerance. No recent weight gain. Genitourinary: No dysuria or hematuria. 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 blood clot in subclavian. History of Any Multi-Drug Resistant Organisms: None Reported Past Surgical History: No Surgical Hx Reported Additional Past Surgical History / Comment(s): cataract surgery. stent in es ophagus and peg tube insertion, Past Anesthesia/Blood Transfusion Reactions: No Reported Reaction Past Psychological History: No Psychological Hx Reported Smoking Status: Never smoker Past Alcohol Use History: None Reported Past Drug Use History: None Reported - Past Family History Mother Family Medical History: Cancer Medications and Allergies Home Medications Medication Instructions Recorded Confirmed Type Acetaminophen [Children's Tylenol] 1 dose PO Q4H PRN 06/24/20 06/24/20 History Enoxaparin [Lovenox] 50 mg SQ Q12H 06/24/20 06/24/20 History Zolpidem [Ambien] 10 mg PO HS 06/24/20 06/24/20 History oxyCODONE HCL [OxyIR] 5 mg PO Q3H PRN 06/24/20 06/24/20 History Allergies Allergy/AdvReac Type Severity Reaction Status Date / Time No Known Allergies Allergy Verified 06/24/20 17:58 Physical Exam Vitals: Vital Signs Temp Pulse Pulse Resp BP BP Pulse Ox 06/24/20 19:10 99.9 F H 120 H 27 H 125/66 95 06/24/20 18:27 100.7 F H 18 157/85 06/24/20 16:41 98.6 F 95 18 103/63 97 06/24/20 15:01 109 H 17 123/65 95 06/24/20 14:07 112 H 06/24/20 13:53 103 F H 126 H 18 94/54 95 Intake and Output 06/24/20 06/24/20 06/24/20 06:59 14:59 22:59 Other: Weight 57.153 kg 57.153 kg PHYSICAL EXAMINATION: Patient is lying in the bed comfortably, no acute distress, awake alert and oriented.. HEENT: Normocephalic. Neck is supple. Pupils reactive. Nostrils clear. Oral cavity is moist. Ears reveal no drainage. Neck reveals no JVD, carotid bruits, or thyromegaly. CHEST EXAMINATION: Trachea is central. Symmetrical expansion. Bibasilar diminished air entry. Lung santiago clear to auscultation and percussion. CARDIAC: Normal S1, S2 with no gallops. No murmurs ABDOMEN: Soft. Bowel sounds normal. No organomegaly. No abdominal bruits. PEG tube site is clean. Extremities: reveal no edema. No clubbing or cyanosis Neurologically awake, alert, oriented x3 with well-coordinated movements. No focal deficits noted Skin: No rash or skin lesions. Psychiatric: Coperative. Nonsuicidal Musculoskeletal: No joint swelling or deformity. Normal range of motion. Results CBC & Chem 7: 06/25/20 06:10 06/25/20 06:10 Labs: Abnormal Lab Results - Last 24 Hours (Table) 06/24/20 06/24/20 06/24/20 Range/Units 14:58 14:58 14:58 RBC 2.67 L (4.30-5.90) m/uL Hgb 7.6 L (13.0-17.5) gm/dL Hct 24.0 L (39.0-53.0) % Lymphocytes # 0.1 L (1.0-4.8) k/uL Monocytes # 1.2 H (0-1.0) k/uL Sodium 132 L (137-145) mmol/L Chloride 97 L (98-107) mmol/L BUN 21 H (9-20) mg/dL Glucose 146 H (74-99) mg/dL Plasma Lactic Acid Gianni 3.3 H* (0.7-2.0) mmol/L Calcium 8.3 L (8.4-10.2) mg/dL ALT 53 H (4-49) U/L Alkaline Phosphatase 315 H (38-126) U/L Total Protein 5.5 L (6.3-8.2) g/dL Albumin 2.8 L (3.5-5.0) g/dL Thrombosis Risk Factor Assmnt - DVT/VTE Prophylaxis DVT/VTE Prophylaxis: Pharmacologic Prophylaxis ordered - Choose All That Apply Any of the Below Risk Factors Present?: Yes Other Risk Factors: Yes Each Risk Factor Represents 2 Points: Age 61-74 years Other congenital or acquired thrombophilia - If yes, enter type in comment: Yes Thrombosis Risk Factor Assessment Total Risk Factor Score: 2 Thrombosis Risk Factor Assessment Level: Low Risk Assessment and Plan Assessment: Acute febrile illness. SIRS, Source unknown at this time. Follow-up blood cultures and continue with broad-spectrum antibiotics at this time. Esophageal cancer diagnosed in April 2020 cancer with recent chemotherapy. History of radiation and esophageal stent placement. Dehydration and volume depletion Lactic acidosis Normocytic anemia/anemia of chronic disease Hypovolemic hyponatremia Mild protein calorie malnutrition Elevated liver enzymes/tonsillitis Recent history of subclavian vein DVT on antibiotic regulation with Lovenox GI prophylaxis PEG tube feeding for nutrition. plan: Patient will be continued on IV hydration and monitor H&H. Follow-up lactic acid level. Patient was given Tylenol and follow-up with blood cultures. Chest x-ray and UA negative for infection. will start back on tube feeding as the patient tolerates. Monitor H&H and follow closely. Continue with home medications. Next and Prognosis is guarded at this time. Time with Patient: Greater than 30
[2020-06-25] MEDS: POTASSIUM CHLORIDE ER 20 MEQ TAB.ER PO SCH ×2 (12:21→14:45)
[2020-06-25 13:47] VITALS: BMI 18.6
[2020-06-25] MEDS: SODIUM CHLORIDE 0.9% 1,000 ML IV SCH ×3 (14:49→23:04)
--- NOTE | 2020-06-25 23:58 | P.PN ---
Subjective Progress Note Date: 06/25/20 Patient is a 70-year-old male with a known history of hypertension, hyperlipidemia and recently diagnosed with esophageal cancer in April 2020 with positive lymph node left upper chest and mass in pancreas and also recent subclavian vein DVT currently on Lovenox at home came to ER with the complaints of fever. Denied any complaints of cough or sputum production. Patient underwent chemoradiation and stent placement to esophagus and also PEG tube for nutrition. Patient was seen at [facility]. Denied any complaints of chest pain or shortness of breath. No abdominal pain. No diarrhea. No dysuria or hematuria. No cough or sputum production. Patient denied any hematemesis or melena. Chest x-ray showed small left pleural effusion. Esophageal stent placement over the interval. Laboratory data showed a bruising 8.5, hemoglobin 7.6, platelets 255 Absolute lymphocyte count is 0.1 Sodium 132, potassium 3.7, chloride 97 lactic acid 2.3, BUN 21 and 0.69, calcium 8.3 neck and ALT 53, AST 31, alk phos 315 albumin 2.8 UA negative for infection T-max on admission was 10 3F Patient is currently saturating at 97% on room air. 06/25/2020 Patient is currently lying in the bed comfortably. Denied any complaints of chest pain or shortness of breath. Patient is still having fever with T-max 100.1 currently being continued on broad-spectrum antibiotic in the form of vancomycin and cefepime. No complaints of dysuria or hematuria. No nausea vomiting or diarrhea. Tolerating tube feeding. Otherwise hemoglobin level dropped down to 6.6 today. From 7.6 yesterday. Patient will be given 1 unit of PRBC. Oncology will also be consulted. Potassium was replaced. Lactic acidosis resolved to 1.5 today. UA negative for infection. Current medications reviewed. Objective - Vital Signs Vital signs: Vital Signs Temp 99.8 F H 06/25/20 19:00 Pulse 97 06/25/20 19:00 Resp 15 06/25/20 19:00 BP 152/73 06/25/20 19:00 Pulse Ox 96 06/25/20 19:00 Intake & Output 06/25/20 06/25/20 06/26/20 06:59 18:59 06:59 Intake Total 685 750 Output Total Balance 685 750 Weight 57.153 kg Intake: Oral Tube Feeding 375 750 Blood Product 310 Rc As-1 Unit 310 [id number] Output: Urine Other: Voiding Method Urinal # Voids # Bowel Movements - Labs CBC & Chem 7: 06/25/20 06:10 06/25/20 06:10 Labs: Abnormal Lab Results - Last 24 Hours (Table) 06/25/20 06/25/20 06/25/20 Range/Units 06:10 06:10 08:07 RBC 2.28 L (4.30-5.90) m/uL Hgb 6.6 L* (13.0-17.5) gm/dL Hct 20.4 L (39.0-53.0) % Lymphocytes # 0.1 L (1.0-4.8) k/uL Sodium 132 L (135-145) mmol/L Potassium 3.4 L (3.5-5.5) mmol/L BUN/Creatinine Ratio 30.00 H (12.00-20.00) Ratio Calcium 7.8 L (8.7-10.3) mg/dL ALT 60 H (10-49) U/L Alkaline Phosphatase 307 H (41-126) U/L Total Protein 4.7 L (6.2-8.2) g/dL Albumin 2.80 L (3.80-4.90) g/dL Albumin/Globulin Ratio 1.47 L (1.60-3.17) g/dL Crossmatch See Detail Microbiology - Last 24 Hours (Table) 06/24/20 14:58 Blood Culture - Preliminary Blood No Growth after 24 hours Assessment and Plan Assessment: Acute febrile illness. SIRS, Source unknown at this time. Follow-up blood cultures and continue with broad-spectrum antibiotics at this time. Esophageal cancer diagnosed in April 2020 cancer with recent chemotherapy. History of radiation and esophageal stent placement. Anemia likely due to chemotherapy Dehydration and volume depletion Lactic acidosis Normocytic anemia/anemia of chronic disease Hypovolemic hyponatremia Mild protein calorie malnutrition Elevated liver enzymes/tonsillitis Recent history of subclavian vein DVT on antibiotic regulation with Lovenox GI prophylaxis PEG tube feeding for nutrition. plan: Patient will be continued on IV hydration and monitor H&H. Patient was given Tylenol and follow-up with blood cultures.Continue with broad-spectrum antibiotics. Chest x-ray and UA negative for infection. start back on tube feeding as the patient tolerates. Monitor H&H and follow closely. Continue with home medications. Next and Prognosis is guarded at this time. Time with Patient: Greater than 30
[2020-06-26] MEDS: ACETAMINOPHEN TAB 325 MG TAB PO PRN (01:01)
[2020-06-26] MEDS ORDERED: VANCOMYCIN TROUGH DUE 1 EACH MISC MISCELLANE ONE (05:00)
[2020-06-26] MEDS: SODIUM CHLORIDE 0.9% 1,000 ML IV SCH ×3 (05:40→22:16)
[2020-06-26] MEDS: VANCOMYCIN 1,250 MG in SODIUM CHLORIDE 0.9% 250 ML IVPB SCH ×2 (06:08→17:33)
[2020-06-26 06:46] LABS: Basophils % (A) 1 %; Eosinophils % (A) 1 %; HCT 25.2 % (39.0-53.0); Hypochromasia Slight; Lymphocytes # (A) 0.1 k/uL (1.0-4.8); Lymphocytes % (A) 4 %; MCH 28.7 pg (25.0-35.0); MCHC 31.8 g/dL (31.0-37.0); MCV 90.2 fL (80.0-100.0); Mean Platelet Volume 8.9; Monocytes # (A) 0.3 k/uL (0-1.0); Monocytes % (A) 9 %; Neutrophils # (A) 2.8 k/uL (1.3-7.7); Neutrophils % (A) 84 %; Platelet Count 164 k/uL (150-450); RBC 2.79 m/uL (4.30-5.90); RDW 14.4 % (11.5-15.5); WBC 3.3 k/uL (3.8-10.6)
[2020-06-26] MEDS: ENOXAPARIN 60 MG/0.6 ML SYRINGE SQ SCH ×2 (08:51→22:55)
[2020-06-26] MEDS: CEFEPIME 2 GM in SODIUM CHLORIDE 0.9% 100 ML IVPB SCH ×3 (08:51→22:54)
[2020-06-26 09:13] LABS: African American GFR (CKD) 111.6 (60.0-200.0); Anion Gap 7.7 mmol/L (4.00-12.00); BUN/Creat Ratio 22.86 Ratio (12.00-20.00); Calcium 7.8 mg/dL (8.7-10.3); Carbon Dioxide 27.3 mmol/L (21.6-31.8); Non-African American GFR(CKD) 96.3 (60.0-200.0); Potassium 3.5 mmol/L (3.5-5.5)
[2020-06-26] MEDS: POTASSIUM CHLORIDE ER 20 MEQ TAB.ER PO SCH ×2 (09:52→12:39)
--- NOTE | 2020-06-26 10:56 | P.PN ---
Subjective Progress Note Date: 06/26/20 This is a 70-year-old gentleman with past medical history of recently diagnosed esophageal cancer in April 2020, positive lymph node in the left upper chest mass in pancreas, recent subclavian DVT on Lovenox, esophageal stent placement, PEG tube placement, radiation ,undergoing chemotherapy, and multiple other medical issues admitted secondary to acute febrile illness, sepsis, etiology unclear with workup in progress, dehydration, anemia. Maintained on vancomycin, cefepime. Creatinine 0.6 from yesterday, BMP pending. T-max 101.3, tachycardic heart rates in the low 100s. Preliminary blood cultures no growth. Hemoglobin up to 8 from 6.6 after 1 unit of packed RBCs. Tolerating tube feedings with minimal to no residuals. Oncology consult in place with recommendations pending. Objective - Vital Signs Vital signs: Vital Signs Temp 101.3 F H 06/26/20 00:55 Pulse 109 H 06/26/20 00:55 Resp 16 06/26/20 00:55 BP 147/72 06/26/20 00:55 Pulse Ox 94 L 06/26/20 00:55 Intake & Output 06/25/20 06/26/20 06/26/20 18:59 06:59 18:59 Intake Total 685 2710 Balance 685 2710 Weight 57.153 kg Intake: Tube Feeding 375 2710 Blood Product 310 Rc As-1 Unit 310 [id number] Other: Voiding Method Urinal # Voids 1 - Exam PHYSICAL EXAM: VITAL SIGNS: As above GENERAL: Sitting up in bed, no acute distress, tired appearing. HEENT: Conjunctivae normal. eyes normal. NECK: No JVD. No thyroid enlargement. CARDIOVASCULAR: S1, S2 regular. Mild Tachycardia, No murmur RESPIRATION: Breath sounds diminished in the bases. No rhonchi or crackles. ABDOMEN: Soft, nontender . No guarding. PEG tube present.Bowel sounds heard. LEGS: No edema. no swelling PSYCHIATRY: Alert and oriented X3, mood and affect normal. NERVOUS SYSTEM: Cranial N 2-12 grossly normal. Moves all 4 limbs. Diffuse weakness, No focal deficits. Strength and sensation grossly intact.. Skin: Warm and dry, no rash - Labs CBC & Chem 7: 06/26/20 05:58 06/26/20 05:58 Labs: Abnormal Lab Results - Last 24 Hours (Table) 06/25/20 06/25/20 06/26/20 Range/Units 06:10 08:07 05:58 WBC 3.3 L (3.8-10.6) k/uL RBC 2.79 L (4.30-5.90) m/uL Hgb 8.0 L (13.0-17.5) gm/dL Hct 25.2 L (39.0-53.0) % Lymphocytes # 0.1 L (1.0-4.8) k/uL Sodium 132 L (135-145) mmol/L Potassium 3.4 L (3.5-5.5) mmol/L BUN/Creatinine Ratio 30.00 H (12.00-20.00) Ratio Calcium 7.8 L (8.7-10.3) mg/dL ALT 60 H (10-49) U/L Alkaline Phosphatase 307 H (41-126) U/L Total Protein 4.7 L (6.2-8.2) g/dL Albumin 2.80 L (3.80-4.90) g/dL Albumin/Globulin Ratio 1.47 L (1.60-3.17) g/dL Crossmatch See Detail Microbiology - Last 24 Hours (Table) 06/24/20 14:58 Blood Culture - Preliminary Blood No Growth after 24 hours Assessment and Plan Assessment: Sepsis secondary with Acute febrile illness, etiology unclear, workup in progress Esophageal cancer diagnosed in April 2020 cancer with recent chemotherapy. History of radiation and esophageal stent placement. Dehydration and volume depletion Lactic acidosis, resolved Normocytic anemia/anemia of chronic disease Hypovolemic hyponatremia, improving Mild protein calorie malnutrition Elevated liver enzymes/tonsillitis Recent history of subclavian vein DVT on antibiotic regulation with Lovenox GI prophylaxis PEG tube feeding for nutrition. Hospital course: Continue on current medication regime ,monitoring and symptomatic treatment. Maintain IV fluid hydration, cefepime, vancomycin. Close monitoring of renal function, electrolytes, coagulation, with repeat labs ordered for a.m. radiation oncology consulted. Oncology consult in place with recommendations pending. Prognosis guarded and multiple complex medical issues. The impression and plan of care has been dictated as directed. : I performed a history and examination of this patient, discussed the same with the dictator. I agree with the dictator's note ,documented as a scribe. Any additional findings or plans will be noted.
--- NOTE | 2020-06-26 13:57 | P.CONS ---
History of Present Illness - Reason for Consult Consult date: 06/26/20 Esophageal Cancer - Chief Complaint Fever - History of Present Illness Shukri has a history of anemia and leukopenia. He was found to have a vitamin B12 deficiency with borderline B12 levels and a high homocysteine level. He's been on monthly B12 supplements along with folic acid. Mr. Dumas denies any unusual chest pain or palpitations. He denies any history of clotting. His no history of M ay or stroke. Overall he's feeling well. He's not had any unusual blood loss. 04/21/2017: Shukri was last seen in our office in 2012 (Dr Clark), he was evaluated by anemia/Thrombocytopenia attributed to B12 deficiency. He had negative Bone marrow in 2011. When seen today, he stated feeling well, active > limited by arthralgias. He consumes moderate amount of alcoholic beverages. No anorexia or un-explained weight loss, no fever, chills or night sweats. 06/01/20: Not seen in 3 years > has progressive dysphagia, odynophagia and weight loss of 30 lbs in 3 months. Was seen at [facility] > CT Scan revealed pancreatic head lesion > Bx negative. EGD revealed large mass at 30 cm from incisors > biopsy revealed poorly-differentiated squamous cell Ca. PET Scan revealed multiple lymph nodes groups including large LSC (4cm) mass and peripancreatic LN. The patient is very weak and having difficulties standing/ambulating, can tolerate small amounts of liquid diet only. He is a lifetime non smoker, consumed large amounts of alcoholic drinks untill diagnosis in mid apr 2020 06/21/20: Was admitted to [facility] > had Esophageal stent , as well as, PEG tube. He is on T feeding now (4 cans/day to gravity), as well as, liquid diet by mouth. He was seen by Radiation Oncology > to start palliative Radiation therapy He is now status post week one radiation treatment and first carboplatin and taol chemotherapy on Saturday 06/23. He states he had a "hypersensitive reaction" to chemo on Friday, although improving after benadryl and steroids. He is seen and evaluated today and has no acute complaints. His ped tube site is CDI, mild discomfort in abdomen, diminished lung sounds. Review of Systems All systems: negative Constitutional: Reports as per HPI Past Medical History Past Medical History: Cancer, Hyperlipidemia, Hypertension Additional Past Medical History / Comment(s): esophogeal cancer apr 2020, cancer in lymph node left upper chest, mass in pancreas. blood clot in subc lavian. History of Any Multi-Drug Resistant Organisms: None Reported Past Surgical History: No Surgical Hx Reported Additional Past Surgical History / Comment(s): cataract surgery. stent in esophagus and peg tube insertion, Past Anesthesia/Blood Transfusion Reactions: No Reported Reaction Past Psychological History: No Psychological Hx Reported Smoking Status: Never smoker Past Alcohol Use History: None Reported Past Drug Use History: None Reported - Past Family History Mother Family Medical History: Cancer Medications and Allergies Home Medications Medication Instructions Recorded Confirmed Type Acetaminophen [Children's Tylenol] 1 dose PO Q4H PRN 06/24/20 06/24/20 History Enoxaparin [Lovenox] 50 mg SQ Q12H 06/24/20 06/24/20 History Zolpidem [Ambien] 10 mg PO HS 06/24/20 06/24/20 History oxyCODONE HCL [OxyIR] 5 mg PO Q3H PRN 06/24/20 06/24/20 History Allergies Allergy/AdvReac Type Severity Reaction Status Date / Time No Known Allergies Allergy Verified 06/24/20 17:58 Physical Exam Vitals: Vital Signs Temp Pulse Pulse Pulse Resp BP BP 06/25/20 19:00 99.8 F H 97 15 152/73 06/25/20 14:55 100.1 F H 93 18 118/71 06/25/20 14:37 99.8 F H 93 16 118/71 06/25/20 12:52 99.3 F 16 118/71 06/25/20 12:22 99 F 98 16 118/71 06/25/20 12:12 99.1 F 137/71 06/25/20 07:00 98.4 F 105 H 18 140/69 06/25/20 01:55 EST 99.6 F 111 H 23 169/74 Pulse Ox 06/25/20 19:00 96 06/25/20 14:55 96 06/25/20 14:37 96 06/25/20 12:52 95 06/25/20 12:22 06/25/20 12:12 99 06/25/20 07:00 93 L 06/25/20 01:55 EST 96 Intake and Output 06/25/20 06/25/20 06/25/20 06:59 14:59 22:59 Intake Total 310 1700 Balance 310 1700 Intake: Oral Tube Feeding 1700 Blood Product 310 Rc As-1 Unit 310 [id number] Other: Voiding Method Urinal # Voids # Bowel Movements Weight 57.153 kg - Constitutional General appearance: cooperative, no acute distress - EENT Eyes: EOMI, PERRLA ENT: hard of hearing, NA/AT, thrush - Respiratory Respiratory: bilateral: diminished (bases) - Cardiovascular Rhythm: regularly irregular - Gastrointestinal Feeding tube CDI General gastrointestinal: soft, tenderness - Integumentary Integumentary: jaundiced, pale - Neurologic Neurologic: CNII-XII intact - Musculoskeletal Musculoskeletal: generalized weakness, strength equal bilaterally - Psychiatric Psychiatric: A&O x's 3, appropriate affect, intact judgment & insight Results CBC & Chem 7: 06/26/20 05:58 06/26/20 14:57 Labs: Abnormal Lab Results - Last 24 Hours (Table) 06/25/20 06/25/20 06/25/20 Range/Units 06:10 06:10 08:07 RBC 2.28 L (4.30-5.90) m/uL Hgb 6.6 L* (13.0-17.5) gm/dL Hct 20.4 L (39.0-53.0) % Lymphocytes # 0.1 L (1.0-4.8) k/uL Sodium 132 L (135-145) mmol/L Potassium 3.4 L (3.5-5.5) mmol/L BUN/Creatinine Ratio 30.00 H (12.00-20.00) Ratio Calcium 7.8 L (8.7-10.3) mg/dL ALT 60 H (10-49) U/L Alkaline Phosphatase 307 H (41-126) U/L Total Protein 4.7 L (6.2-8.2) g/dL Albumin 2.80 L (3.80-4.90) g/dL Albumin/Globulin Ratio 1.47 L (1.60-3.17) g/dL Crossmatch See Detail Microbiology - Last 24 Hours (Table) 06/24/20 14:58 Blood Culture - Preliminary Blood No Growth after 24 hours Assessment and Plan (1) Fever Current Visit: Yes Status: Acute Code(s): R50.9 - FEVER, UNSPECIFIED SNOMED Code(s): 839130653 (2) Esophageal cancer, stage IV Current Visit: No Status: Acute Code(s): C15.9 - MALIGNANT NEOPLASM OF ESOPHAGUS, UNSPECIFIED SNOMED Code(s): 999456930 (3) Malnutrition Current Visit: No Status: Acute Code(s): E46 - UNSPECIFIED PROTEIN-CALORIE MALNUTRITION SNOMED Code(s): 61689118 Plan: Esophageal Cancer: - Status post one treatment on 06/23 with carboplatin and taxol along with concurrent radiation Febrile unknown etiology - 24 hour T max 101.3: - Repeat Blood cultures - Urinalysis - Abdominal imaging - Treatment for thrush - ?tumor fever, unlikely given the t max,
[2020-06-26] MEDS: IOPAMIDOL CONTRAST (ORAL USE) VIAL PO PRN ×2 (15:21→16:41)
[2020-06-26 18:43] LABS: Appearance,Urine Clear (Clear); Bilirubin,Urine Negative (Negative); Blood,Urine Negative (Negative); Color,Urine Yellow; Glucose,Urine (UA) Negative (Negative); Ketones,Urine Negative (Negative); Leukocyte Esterase,Urine Negative (Negative); Nitrite,Urine Negative (Negative); PH, Urine 6.5 (5.0-8.0); Protein,Urine Trace (Negative); Specific Gravity,Urine 1.014 (1.001-1.035)
--- NOTE | 2020-06-26 18:49 | CT ---
EXAMINATION TYPE: CT abdomen pelvis w con DATE OF EXAM: 06/26/2020 COMPARISON: CT 06/07/2020 HISTORY: Patient poor historian. CT DLP: 689.7 mGycm Automated exposure control for dose reduction was used. TECHNIQUE: Helical acquisition of images from the lung bases through the pelvis have been completed. CONTRAST: Performed with Oral Contrast and with IV Contrast, patient injected with 100 mL of Isovue 300. FINDINGS: Small pericardial effusion noted. Esophageal stent is partially visualized. There is a mass present posterior to the stomach at the gastroesophageal junction level the head of the pancreas as on prior exam measuring 4.7 cm in greatest dimension enlarged slightly in the interval. Gastric tube is in place.1 LUNG BASES: There are bilateral pleural effusions left greater than right that is developed in the in terval, there is associated compressive atelectasis AORTA: No significant abnormality is appreciated. LIVER/GB: Gallbladder shows pericholecystic fluid but no definite wall thickening. There is some mild ly dilated intrahepatic biliary ducts. PANCREAS: No significant abnormality is seen. SPLEEN: No significant abnormality is seen. ADRENALS: No significant abnormality is seen. KIDNEYS: No significant interval change is seen. REPRODUCTIVE ORGANS: No significant abnormality is seen BOWEL: Rectum is stool distended, correlate to exclude fecal impaction. FREE AIR: No Free Air visible. ASCITES: Small amount is noted about the liver. PELVIC ADENOPATHY: None visualized. RETROPERITONEAL ADENOPATHY: No Retroperitoneal Adenopathy visible. URINARY BLADDER: Concentric wall thickening, correlate to exclude cystitis versus possible chronic b ladder outlet obstruction seen. OSSEOUS STRUCTURES: No significant abnormality is seen. IMPRESSION: PANCREATIC CARCINOMA, CORRELATE FOR POSSIBLE CHOLECYSTITIS, BILIARY OBSTRUCTION AND FECAL IMPACTION. INTERVAL DEVELOPMENT OF PLEURAL EFFUSIONS.
--- NOTE | 2020-06-26 18:54 | XR ---
EXAMINATION TYPE: XR chest 2V DATE OF EXAM: 06/26/2020 COMPARISON: Prior chest x-ray 06/24/2020 HISTORY: Fever TECHNIQUE: Frontal and lateral views of the chest are obtained. FINDINGS: There is no interval change. Esophageal stent is in place. There are bilateral pleural eff usions. No evident pneumothorax. Heart size is stable. IMPRESSION: Bilateral pleural effusions and associated atelectasis, correlate to exclude pneumonia.
[2020-06-26] MEDS: POTASSIUM BICARBONATE/CIT AC 20 MEQ TABLET.EFF PO SCH ×2 (21:57→22:55)
[2020-06-27] MEDS: VANCOMYCIN 1,250 MG in SODIUM CHLORIDE 0.9% 250 ML IVPB SCH ×2 (06:13→17:18)
[2020-06-27] MEDS: SODIUM CHLORIDE 0.9% 1,000 ML IV SCH ×3 (06:24→21:51)
[2020-06-27] MEDS: NYSTATIN 100,000 UNIT/ML SUSP 500,000 UNIT/5 ML CUP PO SCH ×5 (07:43→21:42)
[2020-06-27] MEDS: ENOXAPARIN 60 MG/0.6 ML SYRINGE SQ SCH ×2 (07:44→21:39)
[2020-06-27] MEDS: CEFEPIME 2 GM in SODIUM CHLORIDE 0.9% 100 ML IVPB SCH ×3 (07:44→23:09)
[2020-06-27 09:03] LABS: African American GFR (CKD) 118.9 (60.0-200.0); Non-African American GFR(CKD) 102.6 (60.0-200.0)
[2020-06-27] MEDS: polyethylene glycoL 3350 17 GM POWD.PACK PO SCH ×2 (11:28→21:39)
--- NOTE | 2020-06-27 14:42 | P.PN ---
Subjective Progress Note Date: 06/27/20 Objective - Vital Signs Vital signs: Vital Signs Temp 97.8 F 06/27/20 07:00 Pulse 96 06/27/20 07:00 Resp 20 06/27/20 07:00 BP 125/69 06/27/20 07:00 Pulse Ox 98 06/27/20 07:00 Intake & Output 06/26/20 06/27/20 06/27/20 18:59 06:59 18:59 Intake Total 500 Balance 500 Intake: Tube Feeding 500 Other: Voiding Method Urinal Toilet Urinal # Voids 1 - Exam - Constitutional General appearance: cooperative, no acute distress - EENT Eyes: EOMI, PERRLA ENT: hard of hearing, NA/AT, thrush - Respiratory Respiratory: bilateral: diminished (bases) - Cardiovascular Rhythm: regularly irregular - Gastrointestinal Feeding tube CDI General gastrointestinal: soft, tenderness - Integumentary Integumentary: jaundiced, pale - Neurologic Neurologic: CNII-XII intact - Musculoskeletal Musculoskeletal: generalized weakness, strength equal bilaterally - Psychiatric Psychiatric: A&O x's 3, appropriate affect, intact judgment & insight - Labs CBC & Chem 7: 06/26/20 05:58 06/27/20 06:20 Labs: Abnormal Lab Results - Last 24 Hours (Table) 06/26/20 06/26/20 Range/Units 14:57 18:39 Potassium 3.4 L (3.5-5.1) mmol/L Urine Protein Trace H (Negative) Microbiology - Last 24 Hours (Table) 06/24/20 14:58 Blood Culture - Preliminary Blood No Growth after 48 hours Assessment and Plan (1) Fever Current Visit: Yes Status: Acute Code(s): R50.9 - FEVER, UNSPECIFIED SNOMED Code(s): 741537698 (2) Esophageal cancer, stage IV Current Visit: No Status: Acute Code(s): C15.9 - MALIGNANT NEOPLASM OF ESOPHAGUS, UNSPECIFIED SNOMED Code(s): 618345734 (3) Malnutrition Current Visit: No Status: Acute Code(s): E46 - UNSPECIFIED PROTEIN-CALORIE MALNUTRITION SNOMED Code(s): 47035609 Plan: Esophageal Cancer: - Status post one treatment on 06/23 with carboplatin and taxol along with concurrent radiation Febrile unknown etiology - Afebrile last 24 hours - Repeat Blood cultures - Continue on broad spectrum abx - Urinalysis - Abdominal imaging - Treatment for thrush -Likely pneumonia given chest xray. - Incentive spirometer Physician Attest: I have completed the full history and physical and agree with above dictation, dictated as a scribe
--- NOTE | 2020-06-27 16:03 | P.CONS ---
History of Present Illness - Reason for Consult Consult date: 06/27/20 Esophageal Cancer - Chief Complaint Fever - History of Present Illness Mr. Dumas is a 70 years old gentleman presented with weight loss and post prandial back pain, his symptoms have started since November of this year, he has lost more than 20 pounds since February 2020, CAT scan of the chest revealed 4.4 x 4.5x 5.4 cm left supraclavicular lymph nodes, this lymph nodes encasing the left internal and external jugular veins with narrowing at the junction of the jugular subclavian and left brachiocephalic veins, there is bulky subcarinal mass or lymph nodes diffusely adjacent to the mid distal thoracic esophagus, or may reflect diffuse mass with exophytic component or a mass abutting bulky subcarinal node noted metastasis, this mass obstructing the esophagus from the level of subcarina to distal esophagus, the patient underwent endoscopy at [facility], it was found at 30 cm from the incisors a friable fungating mass that completely obstructing the esophagus, it was a challenging to pass an adult endoscope through the mass, however the pediatric gastroscope was used and passed the lesion, the lesion extends to the distal esophagus, but not to the GE junction. Biopsies were taken from the mass and came back positive for poorly differentiated squamous cell carcinoma. 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 he started using his PEG tube he is able to swallow fluid and pure food after stent placement. He is now taking radiation treatment and he has received the first cycle of chemotherapy carboplatin and taxol on Saturday 06/23. He states he had a "hypersensitive reaction" to chemo on Friday, although improving after benadryl and steroids. In the next day patient had a temperature of 101. he was admitted to the hospital for neutropenia and fever Review of Systems Constitutional: Reports fever, Reports sweats, Reports weakness, Reports weight loss Eyes: denies blurred vision, denies pain Ears, nose, mouth and throat: Denies headache, Denies sore throat Cardiovascular: Denies chest pain, Denies shortness of breath Gastrointestinal: Denies abdominal pain, Denies diarrhea, Denies nausea, Denies vomiting Genitourinary: Reports as per HPI Musculoskeletal: Reports as per HPI Integumentary: Reports as per HPI Neurological: Reports as per HPI Psychiatric: Reports as per HPI Endocrine: Reports as per HPI Hematologic/Lymphatic: Reports as per HPI Allergic/Immunologic: Reports as per HPI Past Medical History Past Medical History: Cancer, Hyperlipidemia, Hypertension Additional Past Medical History / Comment(s): esophogeal cancer apr 2020, cancer in lymph node left upper chest, mass in pancreas. blood clot in subclavian. History of Any Multi-Drug Resistant Organisms: None Reported Past Surgical History: No Surgical Hx Reported Additional Past Surgical History / Comment(s): cataract surgery. stent in esophagus and peg tube insertion, Past Anesthesia/Blood Transfusion Reactions: No Reported Reaction Past Psychological History: No Psychological Hx Reported Smoking Status: Never smoker Past Alcohol Use History: None Reported Past Drug Use History: None Reported - Past Family History Mother Family Medical History: Cancer Medications and Allergies Home Medications Medication Instructions Recorded Confirmed Type Acetaminophen [Children's Tylenol] 1 dose PO Q4H PRN 06/24/20 06/24/20 History Enoxaparin [Lovenox] 50 mg SQ Q12H 06/24/20 06/24/20 History Zolpidem [Ambien] 10 mg PO HS 06/24/20 06/24/20 History oxyCODONE HCL [OxyIR] 5 mg PO Q3H PRN 06/24/20 06/24/20 History Allergies Allergy/AdvReac Type Severity Reaction Status Date / Time No Known Allergies Allergy Verified 06/24/20 17:58 Physical Exam Vitals: Vital Signs Temp Pulse Pulse Resp BP Pulse Ox 06/27/20 07:00 97.8 F 96 20 125/69 98 06/26/20 23:27 17 06/26/20 23:00 98.2 F 81 120/69 98 06/26/20 19:56 17 06/26/20 19:28 98.3 F 103 H 159/72 95 06/26/20 16:00 111 H 93 17 Intake and Output 06/27/20 06/27/20 06/27/20 06:59 14:59 22:59 Other: Voiding Method Toilet Urinal # Voids 1 - Constitutional General appearance: average body habitus, thin - EENT Eyes: EOMI - Neck Carotids: negative: upstroke normal, upstroke delayed, upstroke diminished, upstroke bounding, bruit absent, bruit present - Respiratory Respiratory: negative: CTA, diminished, dullness, rales, rhonchi, wheezing, prolonged expiration, prolonged inspiration, other - Cardiovascular Rhythm: regular - Gastrointestinal General gastrointestinal: no absent bowel sounds, no decreased bowel sounds, no distended, no hepatomegaly, no hyperactive bowel sounds, no normal bowel sounds, no organomegaly, no rigid, no scaphoid, no soft, no splenomegaly, no tenderness, no umbilical hernia, no ventral hernia - Neurologic Neurologic: CNII-XII intact, focal deficits - Psychiatric Psychiatric: A&O x's 3 Results CBC & Chem 7: 06/26/20 05:58 06/27/20 06:20 Labs: Abnormal Lab Results - Last 24 Hours (Table) 06/26/20 Range/Units 18:39 Urine Protein Trace H (Negative) Microbiology - Last 24 Hours (Table) 06/24/20 14:58 Blood Culture - Preliminary Blood No Growth after 48 hours Assessment and Plan Assessment: The patient in the hospital fore fever of unknown origin , today he is afebrile and stable , he is not in acute distress . the patient will be able to resume his radiation treatment in the following day. (1) Esophageal cancer, stage IV Current Visit: No Status: Acute Code(s): C15.9 - MALIGNANT NEOPLASM OF ESOPHAGUS, UNSPECIFIED SNOMED Code(s): 031427637 Plan: Continue radiotherapy if the patient is medically stable.
[2020-06-28] MEDS: ZOLPIDEM 10 MG TAB PO PRN ×2 (01:47→20:08)
[2020-06-28] MEDS: SODIUM CHLORIDE 0.9% 1,000 ML IV SCH ×3 (01:47→19:51)
[2020-06-28] MEDS: VANCOMYCIN 1,250 MG in SODIUM CHLORIDE 0.9% 250 ML IVPB SCH ×2 (05:34→19:50)
[2020-06-28 06:35] LABS: HCT 24.7 % (39.0-53.0); HGB 7.5 gm/dL (13.0-17.5); Hypochromasia Moderate; MCH 28.1 pg (25.0-35.0); MCHC 30.4 g/dL (31.0-37.0); MCV 92.6 fL (80.0-100.0); Mean Platelet Volume 9.3; Platelet Count 130 k/uL (150-450); RBC 2.67 m/uL (4.30-5.90); RDW 14.9 % (11.5-15.5); WBC 2.6 k/uL (3.8-10.6)
[2020-06-28] MEDS: ENOXAPARIN 60 MG/0.6 ML SYRINGE SQ SCH ×2 (07:12→19:50)
[2020-06-28] MEDS: polyethylene glycoL 3350 17 GM POWD.PACK PO SCH ×2 (07:12→18:49)
[2020-06-28] MEDS: NYSTATIN 100,000 UNIT/ML SUSP 500,000 UNIT/5 ML CUP PO SCH ×4 (07:12→19:46)
[2020-06-28] MEDS: CEFEPIME 2 GM in SODIUM CHLORIDE 0.9% 100 ML IVPB SCH ×2 (07:12→15:47)
[2020-06-28 07:25] LABS: Band Neutrophils % 5 %; Eosinophils # (M) 0.03 k/uL (0-0.7); Lymphocytes # (M) 0.47 k/uL (1.0-4.8); Monocytes # (M) 0.36 k/uL (0-1.0); Neutrophils % (M) 63 %; Nucleated Red Blood Cells 0 /100 WBC (0-0); Total Cells Counted 200
[2020-06-28 07:26] LABS: Poikilocytosis (M) Present
[2020-06-28 10:13] LABS: African American GFR (CKD) 118.9 (60.0-200.0); Albumin 2.6 g/dL (3.80-4.90); Albumin/Globulin Ratio 1.44 (1.60-3.17); Anion Gap 4.6 mmol/L (4.00-12.00); BUN/Creat Ratio 23.33 Ratio (12.00-20.00); Carbon Dioxide 30.4 mmol/L (21.6-31.8); Globulin 1.8 g/dL (1.6-3.3); Non-African American GFR(CKD) 102.6 (60.0-200.0); Potassium 3.3 mmol/L (3.5-5.5); Total Bilirubin 2.1 mg/dL (0.2-1.2); Total Protein 4.4 g/dL (6.2-8.2)
--- NOTE | 2020-06-28 15:11 | P.PN ---
Subjective Progress Note Date: 06/28/20 Principal diagnosis: Esophageal Cancer, FUO Remains afebrile, although apears more jaundice in appearance today, repeat Hepatic function revealing worsening LFTs, increase mild TOtal bili. Objective - Vital Signs Vital signs: Vital Signs Temp 98.2 F 06/28/20 07:00 Pulse 98 06/28/20 07:00 Resp 20 06/28/20 07:00 BP 160/87 06/28/20 07:00 Pulse Ox 96 06/28/20 07:00 Intake & Output 06/27/20 06/28/20 06/28/20 18:59 06:59 18:59 Intake Total 1550 Balance 1550 Weight 57.153 kg Intake: Oral 50 Tube Feeding 1500 Other: Voiding Method Toilet Urinal # Voids 2 # Bowel Movements 1 - Exam - Constitutional General appearance: cooperative, no acute distress - EENT Eyes: EOMI, PERRLA, Jaundice ENT: hard of hearing, NA/AT, thrush - Respiratory Respiratory: bilateral: diminished (bases) - Cardiovascular Rhythm: regularly irregular - Gastrointestinal Feeding tube CDI General gastrointestinal: soft, tenderness - Integumentary Integumentary: jaundiced, pale - Neurologic Neurologic: CNII-XII intact - Musculoskeletal Musculoskeletal: generalized weakness, strength equal bilaterally - Psychiatric Psychiatric: A&O x's 3, appropriate affect, intact judgment & insight - Labs CBC & Chem 7: 06/28/20 05:33 06/28/20 05:33 Labs: Abnormal Lab Results - Last 24 Hours (Table) 06/28/20 06/28/20 Range/Units 05:33 05:33 WBC 2.6 L (3.8-10.6) k/uL RBC 2.67 L (4.30-5.90) m/uL Hgb 7.5 L (13.0-17.5) gm/dL Hct 24.7 L (39.0-53.0) % MCHC 30.4 L (31.0-37.0) g/dL Plt Count 130 L (150-450) k/uL Lymphocytes # (Manual) 0.47 L (1.0-4.8) k/uL Sodium 131 L (135-145) mmol/L Potassium 3.3 L (3.5-5.5) mmol/L BUN/Creatinine Ratio 23.33 H (12.00-20.00) Ratio Glucose 117 H (70-110) mg/dL Calcium 8.0 L (8.7-10.3) mg/dL Total Bilirubin 2.1 H (0.2-1.2) mg/dL AST 115 H (14-35) U/L ALT 142 H (10-49) U/L Alkaline Phosphatase 591 H (41-126) U/L Total Protein 4.4 L (6.2-8.2) g/dL Albumin 2.60 L (3.80-4.90) g/dL Albumin/Globulin Ratio 1.44 L (1.60-3.17) g/dL Microbiology - Last 24 Hours (Table) 06/24/20 14:58 Blood Culture - Preliminary Blood No Growth after 72 hours 06/26/20 14:47 Blood Culture - Preliminary Blood No Growth after 24 hours 06/26/20 14:57 Blood Culture - Preliminary Blood No Growth after 24 hours Assessment and Plan (1) Fever Current Visit: Yes Status: Acute Code(s): R50.9 - FEVER, UNSPECIFIED SNOMED Code(s): 370944253 (2) Esophageal cancer, stage IV Current Visit: No Status: Acute Code(s): C15.9 - MALIGNANT NEOPLASM OF ESOPHAGUS, UNSPECIFIED SNOMED Code(s): 250339595 (3) Malnutrition Current Visit: No Status: Acute Code(s): E46 - UNSPECIFIED PROTEIN-CALORIE MALNUTRITION SNOMED Code(s): 16176470 Plan: Esophageal Cancer: - Status post one treatment on 06/23 with carboplatin and taxol along with concurrent radiation Febrile unknown etiology - Afebrile last 24 hours - Repeat Blood cultures - Continue on broad spectrum abx - Urinalysis - Abdominal imaging - Treatment for thrush -Likely pneumonia given chest xray. - Incentive spirometer Daily Hepatic FUnction (or CMP) please Increased LFTs and Total Bili Consult placed GI to evaluate Hold Nephrotoxins agents Recheck COags
[2020-06-28 15:31] VITALS: RESP 17
[2020-06-28 15:45] LABS: INR 0.9 (<1.2); Partial Thromboplastin Time 27.8 sec (22.0-30.0); Prothrombin Time 9.8 sec (9.0-12.0)
--- NOTE | 2020-06-28 20:42 | P.PN ---
Subjective Progress Note Date: 06/27/20 Patient's 70-year-old white male seen today still struggling with energy waiting over 19 test he can visit with his . His appetite is diminished dealing with his esophageal stent. Little by mouth intake very cachectic denies any fever. Objective - Vital Signs Vital signs: Vital Signs Temp 98.2 F 06/28/20 07:00 Pulse 98 06/28/20 07:00 Resp 20 06/28/20 07:00 BP 160/87 06/28/20 07:00 Pulse Ox 96 06/28/20 07:00 Intake & Output 06/27/20 06/28/20 06/28/20 18:59 06:59 18:59 Intake Total 500 Balance 500 Intake: Tube Feeding 500 Other: Voiding Method Toilet Urinal # Voids 2 # Bowel Movements 1 - Exam VITAL SIGNS: As above GENERAL: Sitting up in bed, no acute distress, tired appearing. HEENT: Conjunctivae normal. eyes normal. NECK: No JVD. No thyroid enlargement. CARDIOVASCULAR: S1, S2 regular. Mild Tachycardia, No murmur RESPIRATION: Breath sounds diminished in the bases. No rhonchi or crackles. ABDOMEN: Soft, nontender . No guarding. PEG tube present.Bowel sounds heard. LEGS: No edema. no swelling PSYCHIATRY: Alert and oriented X3, mood and affect normal. NERVOUS SYSTEM: Cranial N 2-12 grossly normal. Moves all 4 limbs. Diffuse weakness, No focal deficits. Strength and sensation grossly intact.. Skin: Warm and dry, no rash - Labs CBC & Chem 7: 06/28/20 05:33 06/28/20 05:33 Labs: Abnormal Lab Results - Last 24 Hours (Table) 06/28/20 06/28/20 Range/Units 05:33 05:33 WBC 2.6 L (3.8-10.6) k/uL RBC 2.67 L (4.30-5.90) m/uL Hgb 7.5 L (13.0-17.5) gm/dL Hct 24.7 L (39.0-53.0) % MCHC 30.4 L (31.0-37.0) g/dL Plt Count 130 L (150-450) k/uL Lymphocytes # (Manual) 0.47 L (1.0-4.8) k/uL Sodium 131 L (135-145) mmol/L Potassium 3.3 L (3.5-5.5) mmol/L BUN/Creatinine Ratio 23.33 H (12.00-20.00) Ratio Glucose 117 H (70-110) mg/dL Calcium 8.0 L (8.7-10.3) mg/dL Total Bilirubin 2.1 H (0.2-1.2) mg/dL AST 115 H (14-35) U/L ALT 142 H (10-49) U/L Alkaline Phosphatase 591 H (41-126) U/L Total Protein 4.4 L (6.2-8.2) g/dL Albumin 2.60 L (3.80-4.90) g/dL Albumin/Globulin Ratio 1.44 L (1.60-3.17) g/dL Microbiology - Last 24 Hours (Table) 06/24/20 14:58 Blood Culture - Preliminary Blood No Growth after 72 hours 06/26/20 14:47 Blood Culture - Preliminary Blood No Growth after 24 hours 06/26/20 14:57 Blood Culture - Preliminary Blood No Growth after 24 hours Assessment and Plan (1) Acute pneumonia Current Visit: Yes Status: Acute Code(s): J18.9 - PNEUMONIA, UNSPECIFIED ORGANISM SNOMED Code(s): 474234383 (2) Lactic acidosis Current Visit: Yes Status: Acute Code(s): E87.2 - ACIDOSIS SNOMED Code(s): 00781943 (3) Neutropenic fever Current Visit: Yes Status: Acute Code(s): D70.9 - NEUTROPENIA, UNSPECIFIED; R50.81 - FEVER PRESENTING WITH CONDITIONS CLASSIFIED ELSEWHERE SNOMED Code(s): 636204197 (4) Anorexia Current Visit: No Status: Acute Code(s): R63.0 - ANOREXIA SNOMED Code(s): 16200145 (5) Esophageal cancer, stage IV Current Visit: No Status: Acute Code(s): C15.9 - MALIGNANT NEOPLASM OF ESOPHAGUS, UNSPECIFIED SNOMED Code(s): 064121917 (6) Malnutrition Current Visit: No Status: Acute Code(s): E46 - UNSPECIFIED PROTEIN-CALORIE MALNUTRITION SNOMED Code(s): 83867838 Plan: Patient remains on IV antibiotics and hydration 2 feedings will be reevaluated by oncology and radiation oncology even to proceed with chemo and radiation.
--- NOTE | 2020-06-28 20:54 | P.PN ---
Subjective Progress Note Date: 06/28/20 Patient's 70-year-old white male seen today still struggling with energy. His blood and urine cultures have been negative at 48 hours. His appetite is diminished dealing with his esophageal stent. Little by mouth intake very cachectic denies any fever. covid 19 test was negative influenza a and B were negative. Objective - Vital Signs Vital signs: Vital Signs Temp 98.3 F 06/28/20 19:26 Pulse 94 06/28/20 19:26 Resp 17 06/28/20 15:00 BP 155/73 06/28/20 19:26 Pulse Ox 94 L 06/28/20 19:26 Intake & Output 06/28/20 06/28/20 06/29/20 06:59 18:59 06:59 Intake Total 1550 Balance 1550 Weight 57.153 kg Intake: Oral 50 Tube Feeding 1500 Other: Voiding Method Toilet Urinal # Voids 2 # Bowel Movements 1 - Exam VITAL SIGNS: As above GENERAL: Sitting up in bed, no acute distress, tired appearing. HEENT: Conjunctivae normal. eyes normal. NECK: No JVD. No thyroid enlargement. CARDIOVASCULAR: S1, S2 regular. Mild Tachycardia, No murmur RESPIRATION: Breath sounds diminished in the bases. No rhonchi or crackles. ABDOMEN: Soft, nontender . No guarding. PEG tube present.Bowel sounds heard. LEGS: No edema. no swelling PSYCHIATRY: Alert and oriented X3, mood and affect normal. NERVOUS SYSTEM: Cranial N 2-12 grossly normal. Moves all 4 limbs. Diffuse weakness, No focal deficits. Strength and sensation grossly intact.. Skin: Warm and dry, no rash - Labs CBC & Chem 7: 06/28/20 05:33 06/28/20 05:33 Labs: Abnormal Lab Results - Last 24 Hours (Table) 06/28/20 06/28/20 Range/Units 05:33 05:33 WBC 2.6 L (3.8-10.6) k/uL RBC 2.67 L (4.30-5.90) m/uL Hgb 7.5 L (13.0-17.5) gm/dL Hct 24.7 L (39.0-53.0) % MCHC 30.4 L (31.0-37.0) g/dL Plt Count 130 L (150-450) k/uL Lymphocytes # (Manual) 0.47 L (1.0-4.8) k/uL Sodium 131 L (135-145) mmol/L Potassium 3.3 L (3.5-5.5) mmol/L BUN/Creatinine Ratio 23.33 H (12.00-20.00) Ratio Glucose 117 H (70-110) mg/dL Calcium 8.0 L (8.7-10.3) mg/dL Total Bilirubin 2.1 H (0.2-1.2) mg/dL AST 115 H (14-35) U/L ALT 142 H (10-49) U/L Alkaline Phosphatase 591 H (41-126) U/L Total Protein 4.4 L (6.2-8.2) g/dL Albumin 2.60 L (3.80-4.90) g/dL Albumin/Globulin Ratio 1.44 L (1.60-3.17) g/dL Microbiology - Last 24 Hours (Table) 06/24/20 14:58 Blood Culture - Preliminary Blood No Growth after 96 hours 06/26/20 14:47 Blood Culture - Preliminary Blood No Growth after 48 hours 06/26/20 14:57 Blood Culture - Preliminary Blood No Growth after 48 hours Assessment and Plan (1) Acute pneumonia Current Visit: Yes Status: Acute Code(s): J18.9 - PNEUMONIA, UNSPECIFIED ORGANISM SNOMED Code(s): 439555610 (2) Lactic acidosis Current Visit: Yes Status: Acute Code(s): E87.2 - ACIDOSIS SNOMED Code(s): 22915632 (3) Neutropenic fever Current Visit: Yes Status: Acute Code(s): D70.9 - NEUTROPENIA, UNSPECIFIED; R50.81 - FEVER PRESENTING WITH CONDITIONS CLASSIFIED ELSEWHERE SNOMED Code(s): 854674465 (4) Anorexia Current Visit: No Status: Acute Code(s): R63.0 - ANOREXIA SNOMED Code(s): 80421977 (5) Esophageal cancer, stage IV Current Visit: No Status: Acute Code(s): C15.9 - MALIGNANT NEOPLASM OF ESOPHAGUS, UNSPECIFIED SNOMED Code(s): 820120901 (6) Malnutrition Current Visit: No Status: Acute Code(s): E46 - UNSPECIFIED PROTEIN-CALORIE MALNUTRITION SNOMED Code(s): 00766879 (7) Hypokalemia due to inadequate potassium intake Current Visit: Yes Status: Acute Code(s): E87.6 - HYPOKALEMIA SNOMED Code(s): 36716315 (8) Hyponatremia Current Visit: Yes Status: Acute Code(s): E87.1 - HYPO-OSMOLALITY AND HYPONATREMIA SNOMED Code(s): 41935682 (9) Elevated liver function tests Current Visit: Yes Status: Acute Code(s): R79.89 - OTHER SPECIFIED ABNORMAL FINDINGS OF BLOOD CHEMISTRY SNOMED Code(s): 762605855 Plan: Patient remains on IV antibiotics and hydration 2 feedings will be reevaluated by oncology and radiation oncology even to proceed with chemo and radiation. Patient's lab work has looked worse today and he is not quite feeling well and watch him overnight and continue current care
[2020-06-28] MEDS ORDERED: Potassium Replacement Protocol 1 EACH MISC MISCELLANE PRN (20:56)
[2020-06-29] MEDS: CEFEPIME 2 GM in SODIUM CHLORIDE 0.9% 100 ML IVPB SCH ×2 (00:47→10:15)
[2020-06-29] MEDS: SODIUM CHLORIDE 0.9% 1,000 ML IV SCH ×2 (00:47→11:30)
[2020-06-29] MEDS ORDERED: VANCOMYCIN TROUGH DUE 1 EACH MISC MISCELLANE ONE (05:00)
[2020-06-29] MEDS: NYSTATIN 100,000 UNIT/ML SUSP 500,000 UNIT/5 ML CUP PO SCH ×2 (07:11→11:30)
[2020-06-29] MEDS: polyethylene glycoL 3350 17 GM POWD.PACK PO SCH (07:11)
[2020-06-29] MEDS: ENOXAPARIN 60 MG/0.6 ML SYRINGE SQ SCH (07:13)
[2020-06-29] MEDS: VANCOMYCIN 1,250 MG in SODIUM CHLORIDE 0.9% 250 ML IVPB SCH (07:13)
[2020-06-29 08:43] VITALS: BP 144/81; PULSE 102; TEMP 98.9
[2020-06-29 10:11] LABS: African American GFR (CKD) 128.1 (60.0-200.0); Albumin 2.7 g/dL (3.80-4.90); Albumin/Globulin Ratio 1.5 (1.60-3.17); Anion Gap 7.6 mmol/L (4.00-12.00); Calcium 8.1 mg/dL (8.7-10.3); Carbon Dioxide 30.4 mmol/L (21.6-31.8); Globulin 1.8 g/dL (1.6-3.3); Non-African American GFR(CKD) 110.6 (60.0-200.0); Potassium 3.2 mmol/L (3.5-5.5); Total Bilirubin 2.9 mg/dL (0.3-1.2); Total Protein 4.5 g/dL (6.2-8.2)
--- NOTE | 2020-06-29 14:15 | P.PN ---
Subjective Progress Note Date: 06/29/20 Principal diagnosis: Esophageal Cancer, FUO primary team planning on discharge today, stat cbc prior to ensure no transfusion needed as he hits abhijeet from chemo. Liver function continue to worsen, difficult to know if related to malignancy versus other. Objective - Vital Signs Vital signs: Vital Signs Temp 98.9 F 06/29/20 07:00 Pulse 102 H 06/29/20 07:00 Resp 17 06/28/20 15:00 BP 144/81 06/29/20 07:00 Pulse Ox 94 L 06/29/20 07:00 Intake & Output 06/28/20 06/29/20 06/29/20 18:59 06:59 18:59 Intake Total 1550 1150 Balance 1550 1150 Weight 57.153 kg 60.6 kg Intake: Oral 50 150 Tube Feeding 1500 1000 Other: Voiding Method Toilet Urinal # Voids 2 - Exam - Constitutional General appearance: cooperative, no acute distress - EENT Eyes: EOMI, PERRLA, Jaundice ENT: hard of hearing, NA/AT, thrush - Respiratory Respiratory: bilateral: diminished (bases) - Cardiovascular Rhythm: regularly irregular - Gastrointestinal Feeding tube CDI General gastrointestinal: soft, tenderness - Integumentary Integumentary: jaundiced, pale - Neurologic Neurologic: CNII-XII intact - Musculoskeletal Musculoskeletal: generalized weakness, strength equal bilaterally - Psychiatric Psychiatric: A&O x's 3, appropriate affect, intact judgment & insight - Labs CBC & Chem 7: 06/28/20 05:33 06/29/20 05:42 Labs: Abnormal Lab Results - Last 24 Hours (Table) 06/29/20 Range/Units 05:42 Sodium 133 L (135-145) mmol/L Potassium 3.2 L (3.5-5.5) mmol/L Chloride 95 L (96-109) mmol/L Creatinine 0.5 L (0.6-1.5) mg/dL BUN/Creatinine Ratio 26.00 H (12.00-20.00) Ratio Glucose 121 H (70-110) mg/dL Calcium 8.1 L (8.7-10.3) mg/dL Total Bilirubin 2.9 H (0.3-1.2) mg/dL AST 124 H (14-35) U/L ALT 174 H (10-49) U/L Alkaline Phosphatase 654 H (41-126) U/L Total Protein 4.5 L (6.2-8.2) g/dL Albumin 2.70 L (3.80-4.90) g/dL Albumin/Globulin Ratio 1.50 L (1.60-3.17) g/dL Microbiology - Last 24 Hours (Table) 06/24/20 14:58 Blood Culture - Preliminary Blood No Growth after 96 hours 06/26/20 14:47 Blood Culture - Preliminary Blood No Growth after 48 hours 06/26/20 14:57 Blood Culture - Preliminary Blood No Growth after 48 hours Assessment and Plan (1) Fever Current Visit: Yes Status: Acute Code(s): R50.9 - FEVER, UNSPECIFIED SNOMED Code(s): 820226051 (2) Esophageal cancer, stage IV Current Visit: No Status: Acute Code(s): C15.9 - MALIGNANT NEOPLASM OF ESOPHAGUS, UNSPECIFIED SNOMED Code(s): 668423150 (3) Malnutrition Current Visit: No Status: Acute Code(s): E46 - UNSPECIFIED PROTEIN-CALORIE MALNUTRITION SNOMED Code(s): 90897395 Plan: Esophageal Cancer: - Status post one treatment on 06/23 with carboplatin and taxol along with concurrent radiation Febrile unknown etiology - Afebrile last 24 hours - Repeat Blood cultures - Continue on broad spectrum abx - Urinalysis - Abdominal imaging - Treatment for thrush -Likely pneumonia given chest xray. - Incentive spirometer Daily Hepatic FUnction (or CMP) please Increased LFTs and Total Bili Stat CBC for possible transfusion if plan to discharge today Consult placed GI to evaluate, await their recommendations Hold Nephrotoxins agents Repeat Coags stable
[2020-06-29] MEDS ORDERED: VANCOMYCIN 1,000 MG in SODIUM CHLORIDE 0.9% 250 ML IVPB SCH (18:00)
--- NOTE | 2020-06-29 20:46 | P.DS ---
Providers Date of admission: 06/24/20 16:22 Expected date of discharge: 06/29/20 Attending physician: Melvin Bain Consults: 06/25/20 15:12 Consult Physician Routine Consulting Provider: Job Ayon Consult Reason/Comments: patient known to him/oncology Do you want consulting provider notified?: Yes 06/26/20 10:40 Consult Physician Routine Consulting Provider: Iban Collins Consult Reason/Comments: radiation oncology Do you want consulting provider notified?: Yes 06/28/20 15:08 Consult Physician Routine Consulting Provider: María Elena Ferrari Consult Reason/Comments: Increasing LFTS Do you want consulting provider notified?: Yes Primary care physician: Melvin Bain - Discharge Diagnosis(es) (1) Acute pneumonia Status: Acute (2) Lactic acidosis Status: Acute (3) Neutropenic fever Status: Acute (4) Anorexia Status: Acute (5) Esophageal cancer, stage IV Status: Acute (6) Malnutrition Status: Acute (7) Hypokalemia due to inadequate potassium intake Status: Acute (8) Hyponatremia Status: Acute (9) Elevated liver function tests Status: Acute Hospital Course: Is a pleasant 70-year-old white male was admitted for neutropenic fever after one bout of chemotherapy. He is suffering from stage IV esophageal cancer. He has undergone radiation and one bout of chemotherapy was developed a fever. Cultures were negative after 48-72 hours. He was adamant about going home today we have found he is suffering from pneumonia and probably have metastasis going on liver because of rising liver function. Patient wishes to return home today his influenza test were negative and Covid19 test was negative. Patient Condition at Discharge: Stable Plan - Discharge Summary Discharge Rx Participant: Yes New Discharge Prescriptions: New Amoxic-Pot Clav 600-42.9MG/5Ml [Augmentin 600-42.9 mg/5 ml Liquid] 5 ml PO Q12H #100 ml Nystatin 100,000 Unit/ml Susp [Mycostatin Oral Susp] 500,000 unit PO QID #30 ml Continue oxyCODONE HCL [OxyIR] 5 mg PO Q3H PRN PRN Reason: Pain Zolpidem [Ambien] 10 mg PO HS Enoxaparin [Lovenox] 50 mg SQ Q12H Acetaminophen [Children's Tylenol] 1 dose PO Q4H PRN PRN Reason: Pain Or Fever > 100.5 Discharge Medication List Acetaminophen [Children's Tylenol] 1 dose PO Q4H PRN 06/24/20 [History] Enoxaparin [Lovenox] 50 mg SQ Q12H 06/24/20 [History] Zolpidem [Ambien] 10 mg PO HS 06/24/20 [History] oxyCODONE HCL [OxyIR] 5 mg PO Q3H PRN 06/24/20 [History] Amoxic-Pot Clav 600-42.9MG/5Ml [Augmentin 600-42.9 mg/5 ml Liquid] 5 ml PO Q12H #100 ml 06/29/20 [Rx] Nystatin 100,000 Unit/ml Susp [Mycostatin Oral Susp] 500,000 unit PO QID #30 ml 06/29/20 [Rx] Follow up Appointment(s)/Referral(s): Melvin Bain DO [Primary Care Provider] - 07/06/20 10:00 am Iban Collins MD [STAFF PHYSICIAN] - 06/30/20 2:00 pm Job Ayon MD [STAFF PHYSICIAN] - 1 Week (office not answering Please call to make appointment) [facility] Visiting Nurse, [NON-STAFF] - 1 Week Shukri Bucio MD [STAFF PHYSICIAN] - 07/28/20 12:30 pm Discharge Disposition: HOME WITH HOME HEALTH SERVICES Plan of Treatment: Radiation and chemo per oncology
--- NOTE | 2020-06-30 03:40 | CDI ---
Documentation Clarification Form Date: 06/30/2020 From: Fabio Valerio Phone: If you have a question about this query, please contact Brie Rodriguez [employer] Development Engineer at [phone] between 8am and 5pm. Admit Date: 06/24/2020 Discharge Date: 06/29/2020 Patient Name: Shukri Dumas Visit Number: [id number] ATTENTION: The Clinical Documentation Specialists (CDI) and [facility] Coding Staff appreciate your assistance in clarifying documentation. Please respond to the clarification below the line at the bottom and electronically sign. The CDI & [facility] Coding staff will review the response and follow-up if needed. Please note: Queries are made part of the Legal Health Record. If you have any questions, please contact the author of this message via ITS. Dear Melvin Cooper DO., The patient presented with the fever and neutropenia. History/Risk Factors: Esophageal cancer, Acidosis, Malnutrition WBC : 8.5L Lactic acid: 3.3H Vitals signs on admission: Temperature 103 F H Pulse Rate 126 H 109 H Respiratory 18 17 Rate Blood Pressure 94/54 123/65 O2 Sat by Pulse 95 95 Oximetry Treatment: Maintain IV fluid hydration, cefepime, vancomycin. 06/26 in your progress note mentioned as "Sepsis secondary with Acute febrile illness, etiology unclear, workup in progress". Per DS mentioned as "admitted for neutropenic fever after one bout of chemotherapy". Is a pleasant 70-year-old white male was admitted for neutropenic fever after one bout of chemotherapy.He is suffering from stage IV esophageal cancer.He has undergone radiation and one bout of chemotherapy was developed a fever In your professional opinion, please clarify if these findings signify one of the following conditions, Condition Sepsis ruled out Sepsis Other, please specify Unable to determine Sepsis ruled out MTDD
== END 2020-06-29 14:00 | disposition home health service (06) | DRG 808 ==
LOC: EC 13:48 → 4SSUR 16:22
PROVIDERS: ADMIT Family Medicine; ATTEND Family Medicine
PROC: DD001ZZ Beam Radiation of Esophagus using Photons 1 - 10 MeV (ICD-10-PCS; principal; 2020-06-22)
DX: D70.9 Neutropenia, unspecified (principal); J18.9 Pneumonia, unspecified organism; C15.5 Malignant neoplasm of lower third of esophagus; E87.2 Acidosis; E87.1 Hypo-osmolality and hyponatremia; E44.1 Mild protein-calorie malnutrition; R64 Cachexia; Z68.1 Body mass index [BMI] 19.9 or less, adult; Z20.828 Contact with and (suspected) exposure to other viral communicable diseases; E78.5 Hyperlipidemia, unspecified; E86.0 Dehydration; E86.1 Hypovolemia; E53.8 Deficiency of other specified B group vitamins; E87.6 Hypokalemia; D64.81 Anemia due to antineoplastic chemotherapy; R50.81 Fever presenting with conditions classified elsewhere; T45.1X5A Adverse effect of antineoplastic and immunosuppressive drugs, initial encounter; I10 Essential (primary) hypertension; Z79.899 Other long term (current) drug therapy; Z98.49 Cataract extraction status, unspecified eye; Z80.9 Family history of malignant neoplasm, unspecified; Z86.718 Personal history of other venous thrombosis and embolism; Z92.3 Personal history of irradiation; Z79.01 Long term (current) use of anticoagulants
CPT/HCPCS: 36415; 71046; 74177; 77336; 77386; 80048; 80053; 80202; 81003; 82565; 83605; 84132; 85025; 85610; 85730; 86850; 86900; 86901; 86920; 87040; 87502; 96361; 96365; 96368; 99285